=== PATIENT | female | born 1945 | race Caucasian/White ===

== ENCOUNTER → 2016-09-03 | Outpatient (CLI) | payer MEDICARE, OTHER ==
--- NOTE | 2016-09-03 11:46 | REPMRS ---
Patient History The patient states she has not had a clinical breast exam in over a year. Patient is postmenopausal. No known family history of cancer. Took hormonal contraceptives for 1 year 6 months. Took estrogen for 3 years. Digital Woman Screen Mammo: September 03, 2016 - Exam #: [id number] Bilateral CC and MLO view(s) were taken. Technologist: Joyce Boyce, Technologist Prior study comparison: May 08, 2015, digital woman screen mammo performed at [facility]. October 27, 2013, bilateral bilat screen digital mammo, performed at [facility] ([facility]). September 26, 2012, bilateral bilat screen digital mammo, performed at [facility] ([facility]). FINDINGS: There are scattered fibroglandular densities. There has been no change in the appearance of the mammogram from the prior studies. There is a mild amount of scattered fibroglandular density which is fairly symmetric. There is no interval development of dominant mass, architectural distortion, or clustered microcalcification suggestive of malignancy. ASSESSMENT: BI-RADS/ACR category 1 mammogram. Negative. Recommendation Routine screening mammogram in 1 year (for women over age 40). This mammogram was interpreted with the aid of an FDA-approved computer-aided dectection system. Electronically Signed By: Kalen Gomes MD 09/03/16 [id number]
== END ==
LOC: M WHC 10:28
PROVIDERS: ATTEND Family Medicine
DX: Z12.31 Encounter for screening mammogram for malignant neoplasm of breast (principal)

== ENCOUNTER → 2016-09-21 | Outpatient (REF) | payer MEDICARE, OTHER | LOC: M LAB REF 12:05 | PROVIDERS: ATTEND Family Medicine | DX: M10.9 Gout, unspecified (principal) ==

== ENCOUNTER → 2017-03-30 | Outpatient (REF) | payer MEDICARE, OTHER | LOC: M LAB REF 17:36 | PROVIDERS: ATTEND Family Medicine | DX: Z01.89 Encounter for other specified special examinations (principal) ==

== ENCOUNTER → 2017-09-13 | Outpatient (CLI) | payer MEDICARE, OTHER | LOC: M WHC 14:05 | DX: Z12.31 Encounter for screening mammogram for malignant neoplasm of breast (principal); M85.80 Other specified disorders of bone density and structure, unspecified site; Z78.0 Asymptomatic menopausal state; Z92.0 Personal history of contraception; Z92.23 Personal history of estrogen therapy | CPT/HCPCS: 77067 ==

== ENCOUNTER → 2018-04-04 | Outpatient (REF) | payer MEDICARE, OTHER ==
[2018-04-04 11:36] LABS: URIC ACID 4.6 MG/DL (2.6-6.0)
== END ==
LOC: M LAB REF 10:51
DX: M10.9 Gout, unspecified (principal)
CPT/HCPCS: 84550

== ENCOUNTER → 2018-07-04 | Outpatient (REF) | payer MEDICARE, OTHER ==
[2018-07-04 13:24] LABS: BLOOD UREA NITROGEN 19 MG/DL (7-18)
[2018-07-04 13:24] LABS: CREATININE FOR GFR 0.74 MG/DL (0.55-1.30); GLOMERULAR FILTRATION RATE > 60.0 (>39)
== END ==
LOC: M LAB REF 12:26
DX: N18.9 Chronic kidney disease, unspecified (principal)
CPT/HCPCS: 82565

== ENCOUNTER → 2018-11-02 | Outpatient (CLI) | payer MEDICARE, OTHER ==
--- NOTE | 2018-11-02 13:28 | REPMRS ---
Patient History The patient states she has not had a clinical breast exam in over a year. No known family history of cancer. Took hormonal contraceptives for 1 year 6 months. Took estrogen for 3 years. Digital Woman Screen Mammo: November 02, 2018 - Exam #: [id number] Bilateral CC and MLO view(s) were taken. Technologist: Dot Enriquez Technologist Prior study comparison: September 13, 2017, digital woman screen mammo performed at [facility]. September 03, 2016, digital woman screen mammo performed at [facility]. May 08, 2015, digital woman screen mammo performed at [facility]. FINDINGS: There are scattered fibroglandular densities. There has been no change in the appearance of the mammogram from the prior studies. There is a mild amount of scattered fibroglandular density which is fairly symmetric. There is no interval development of dominant mass, architectural distortion, or clustered microcalcification suggestive of malignancy. 3-D tomosynthesis shows no additional findings. Assessment: BI-RADS/ACR category 1 mammogram. Negative Mammogram. Recommendation Routine screening mammogram of both breasts in 1 year (for women over age 40). This patient's Lifetime Breast Cancer RIsk is estimated at 4.4 %. This mammogram was interpreted with the aid of an FDA-approved computer-aided dectection system. Electronically Signed By: Kalen Gomes MD 11/02/18 [id number]
== END ==
LOC: M WHC 09:36
PROVIDERS: ATTEND Family Medicine
DX: Z12.31 Encounter for screening mammogram for malignant neoplasm of breast (principal); Z92.0 Personal history of contraception; Z92.23 Personal history of estrogen therapy

== ENCOUNTER → 2019-03-01 | Outpatient (REF) | payer MEDICARE, OTHER | LOC: M LAB REF 12:48 | PROVIDERS: ATTEND Podiatrist Foot & Ankle Surgery | DX: L03.115 Cellulitis of right lower limb (principal); L89.891 Pressure ulcer of other site, stage 1 ==

== ENCOUNTER → 2019-04-06 | Outpatient (REF) | payer MEDICARE, OTHER ==
[~2019-04-06] MED LIST: CARB25TA9 PO; JANU100T PO; LEVAINH INH; LEVO75TA4 PO; LISI-538 PO; PRAM1TAB7 PO; PRIM250T8 PO; REFR0.5D8 OP; REST0.05 OU; SIMV40TA2 PO; SULF1TAB93 PO; ZYLO300T6 PO
== END ==
LOC: M LAB REF 17:08
PROVIDERS: ATTEND Podiatrist Foot & Ankle Surgery
DX: L03.115 Cellulitis of right lower limb (principal)

== ENCOUNTER → 2019-04-12 | Outpatient (REF) | payer MEDICARE, OTHER ==
[~2019-04-12] MED LIST changes: +HYDR-3713 PO; +ONDA4TAB5 PO
== END ==
LOC: M LAB REF 12:52
PROVIDERS: ATTEND Family Medicine
DX: M10.9 Gout, unspecified (principal)

== ENCOUNTER 2019-04-19 07:22 | Day surgery (SDC) | payer MEDICARE, OTHER ==
[~2019-04-19] VITALS: Ht 172.7 cm; Wt 109.8 kg
[~2019-04-19 07:22] MED LIST changes: -HYDR-3713 PO; -ONDA4TAB5 PO
[2019-04-19] MEDS ORDERED: LIDOCAINE 2% INJ 100 MG/5 ML SDV (FOR ANES.) As Ordered ONE (07:48)
[2019-04-19] MEDS ORDERED: PROPOFOL 500 MG/50 ML VIAL As Ordered ONE (07:48)
[2019-04-19] MEDS ORDERED: MIDAZOLAM INJ 2 MG/2 ML VIAL (J2250) As Ordered ONE (07:48)
[2019-04-19] MEDS ORDERED: fentaNYL 100 MCG/2 ML INJECTION (J3010) As Ordered ONE (07:48)
[2019-04-19] MEDS ORDERED: dexameTHASONE 4 MG/ML 1ML VIAL (J1100) As Ordered ONE ×2 (07:52→08:19)
[2019-04-19] MEDS ORDERED: KETOROLAC 60 MG/2 ML VIAL (J1885) As Ordered ONE (07:52)
[2019-04-19] MEDS ORDERED: ONDANSETRON 4MG/2ML VIAL (J2405) As Ordered ONE (07:52)
[2019-04-19] MEDS ORDERED: ceFAZolin 2 GM/D5W 50 ML IV BAG (J0690 PER 500MG) As Ordered ONE (07:59)
[2019-04-19] MEDS ORDERED: LIDOCAINE 1% MDV 20ML VIAL As Ordered ONE (08:19)
[2019-04-19] MEDS ORDERED: BUPIVACAINE HCL 0.5% 10 ML VIAL As Ordered ONE (08:19)
[2019-04-19] MEDS ORDERED: ONDA4TAB5 PO (09:23)
[2019-04-19] MEDS ORDERED: HYDR-3713 PO (09:23)
[2019-04-19 09:50] VITALS: BP 146/73
--- NOTE | 2019-04-20 06:44 | RO ---
DATE OF PROCEDURE: 04/19/2019 PREPROCEDURE DIAGNOSIS: Right foot metatarsal deformity with ulceration and possible osteomyelitis. POSTPROCEDURE DIAGNOSIS: Right foot metatarsal deformity with ulceration and possible osteomyelitis. PROCEDURE: Right second metatarsal head excision. SURGEON: Dr. Eliezer Restrepo JUNIOR PROJECT MANAGER: None. ANESTHESIA: Monitored anesthesia care with preoperative injection of 14 mL of 1:1 mixture of 1% lidocaine plain and 1/2% Marcaine plain. ESTIMATED BLOOD LOSS: Minimal. MATERIALS: #3-0 and #4-0 Vicryl and #4-0 nylon. INJECTABLES: None. SPECIMEN: Right second metatarsal head. COMPLICATIONS: None. CONDITION: Stable. 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 She has chronic dislocation, secondary long standing bunion and hammertoe deformities creating a pressure point under her second metatarsal head. Attempts of off loading this were unsuccessful in allowing further wound healing. The patient is unable to maintain non weight bearing status. She was brought to the operating room for excision of metatarsal head. The patient site and side were identified and marked in preoperative holding area. Consent was reviewed and obtained. All the risks, complications and alternatives to the procedure were explained to the patient in detail and all questions were answered. The patient was brought to the operating room and placed on the operating room in supine position. Monitored anesthesia care was delivered by the anesthesia team. Preoperative injection of 14 mL of 1:1 mixture of 1% lidocaine plain and 0.5% Marcaine plain were injected into the right foot. The right foot was prepped and draped in normal sterile fashion. A tourniquet was applied to the right ankle and inflated at 225 mmHg. Dorsal incision was drawn over the second metatarsal head and carried through with #15 blade. Dissection was carried until the metatarsal bone was identified. Bovie was used to maintain hemostasis. Dissection around the second metatarsal head was performed and freeing the soft tissue. Following this, sagittal saw was used to resect the metatarsal at the metatarsal neck. This was removed. The bone was noted to be irregular. This was then sent for pathology. The proximal phalanx bone was inspected and noted to be in good condition and no further signs of infection were noted more proximally. Some nonviable tissue was removed from the plantar surface of the wound. The site was irrigated. Deep closure performed with #3-0 Vicryl, subcutaneous closure with #4-0 Vicryl and skin closure with #4-0 nylon. Sterile dressings were applied. Tourniquet was deflated. The patient was brought to the postanesthesia care unit (PACU) with vital signs stable and neurovascular status intact. She will be partial weight bearing. She will follow up in the office in two days.
== END 2019-04-19 10:36 | disposition home or self-care (01) ==
LOC: M SDC 07:22 → EDSTATUS 15:00
PROVIDERS: ATTEND Podiatrist Foot & Ankle Surgery
DX: E11.621 Type 2 diabetes mellitus with foot ulcer (principal); I10 Essential (primary) hypertension; G20 Parkinson's disease; E03.9 Hypothyroidism, unspecified; E78.5 Hyperlipidemia, unspecified; G47.30 Sleep apnea, unspecified; Z79.899 Other long term (current) drug therapy
CPT/HCPCS: 28112; 88300; J0690; J1100; J1885; J2250; J2405; J3010

== ENCOUNTER → 2019-04-29 | Outpatient (REF) | payer MEDICARE, OTHER ==
[~2019-04-29] MED LIST changes: +HYDR-3713 PO; +ONDA-83 PO; -SIMV40TA2 PO; +SIMV40TA20 PO
== END ==
LOC: M LAB REF 08:42
PROVIDERS: ATTEND Physician Assistant Medical
DX: S91.301A Unspecified open wound, right foot, initial encounter (principal); Y92.9 Unspecified place or not applicable; Y93.9 Activity, unspecified

== ENCOUNTER 2019-05-31 07:33 | Emergency (ER) | payer MEDICARE, OTHER ==
[~2019-05-31] VITALS: Ht 172.7 cm; Wt 105.9 kg
[~2019-05-31 07:33] MED LIST changes: -ONDA-83 PO; +ONDA4TAB5 PO; +SIMV40TA2 PO; -SIMV40TA20 PO
[2019-05-31 08:24] LABS: BASO # 0.1 10^3/uL (0.0-0.2); BASO % 0.5 % (0.0-1.0); EOS # 0.1 10^3/uL (0.0-0.5); HEMATOCRIT 33.2 % (36.0-47.0); HEMOGLOBIN 10.7 g/dl (12.0-15.5); LYMPH # 1.6 10^3/uL (1.5-5.0); LYMPH % 14.7 % (24.0-44.0); MEAN CORPUSCULAR HEMOGLOBIN 26.2 pg (27.0-33.0); MEAN CORPUSCULAR HGB CONC 32.2 g/dl (32.0-36.5); MEAN CORPUSCULAR VOLUME 81.2 fl (80.0-96.0); MONO # 0.7 10^3/uL (0.0-0.8); MONO % 6.1 % (0.0-5.0); NEUTROPHILS # 8.4 10^3/uL (1.5-8.5); NEUTROPHILS % 76.7 % (36.0-66.0); PLATELET COUNT, AUTOMATED 320 10^3/uL (150-450); RED BLOOD COUNT 4.09 10^6/uL (4.00-5.40); WHITE BLOOD COUNT 10.9 10^3/uL (4.0-10.0)
[2019-05-31] MEDS ORDERED: NS 1,000 ML IV ONE ×2 (08:30→11:30)
[2019-05-31 08:48] LABS: ALBUMIN 3.4 GM/DL (3.2-5.2); ALT/SGPT < 6 U/L (12-78); BILIRUBIN,TOTAL 0.5 MG/DL (0.2-1.0); BLOOD UREA NITROGEN 14 MG/DL (7-18); CARBON DIOXIDE LEVEL 26 MEQ/L (21-32); CHLORIDE LEVEL 101 MEQ/L (98-107); CREATININE FOR GFR 0.88 MG/DL (0.55-1.30); GLOMERULAR FILTRATION RATE > 60.0 (>39); GLUCOSE, FASTING 103 MG/DL (70-100); POTASSIUM SERUM 3.9 MEQ/L (3.5-5.1); SODIUM LEVEL 137 MEQ/L (136-145); TOTAL PROTEIN 7.5 GM/DL (6.4-8.2)
--- NOTE | 2019-05-31 09:37 | REP ---
ABDOMEN SERIES: Four views. HISTORY: Constipation, nausea and vomiting. FINDINGS: Upright chest radiograph demonstrates linear opacity in the perihilar region on the right consistent with discoid atelectasis and/or fibrosis. Lungs are otherwise well inflated and clear. There is no evidence of infiltrate or free subdiaphragmatic air. Heart is not enlarged. Supine and erect views of the abdomen show a normal bowel gas pattern. There is no evidence of mass, organomegaly, or pathologic calcification. Some vascular calcification is noted. Mild degenerative changes are seen in the lumbar spine. IMPRESSION: Normal bowel gas pattern. Plate-like atelectasis versus linear fibrosis right perihilar region. Otherwise no acute finding. Electronically Signed by Gregorio Gomes MD 05/31/2019 01:43 P
[2019-05-31] MEDS ORDERED: ISOVUE-370 76% 100ML VIAL (Q9967) As Ordered ONE (09:43)
[2019-05-31 10:06] LABS: FREE T4 1.68 NG/DL (0.76-1.46); LIPASE 124 U/L (73-393); MAGNESIUM LEVEL 1.9 MG/DL (1.8-2.4); THYROID STIMULATING HORMONE 0.525 uIU/ML (0.358-3.740)
--- NOTE | 2019-05-31 11:08 | REP ---
CT abdomen and pelvis with IV but without oral contrast: History: No appetite. Weight loss. Chronic nausea and vomiting. No comparison CT study. Comparison radiographs are from earlier today. CT contrast dose: 100 mL of intravenous Isovue 370. CT findings: Digital preliminary scout executive radiograph is unremarkable. There are two small blebs in the right lower lobe of the lung. Lung bases are otherwise clear. Vascular calcification is noted in the distribution of the left coronary artery. The liver and the spleen are normal in size. No significant focal liver lesion is seen. There is a mucosal fold in the gallbladder. No other abnormality is seen in the gallbladder. No pancreatic lesion is observed. Normal adrenal glands are seen bilaterally. The kidneys are morphologically intact and enhance symmetrically. No hydronephrosis or calculus is seen. No retroperitoneal mass or adenopathy is observed. There is a periumbilical ventral hernia transmitting omental fat. The hernia defect measures 2.1 cm in transverse dimension. No other abdominal wall defect is seen. There is extensive left colonic diverticulosis affecting the sigmoid colon without CT evidence of diverticulitis. A normal appendix is visible. Urinary bladder is unremarkable. The uterus is surgically absent. Impression: Ventral hernia transmitting abdominal fat in the periumbilical region. Advanced diverticulosis in the sigmoid colon without CT evidence of diverticulitis. Status post hysterectomy. Otherwise negative. Electronically Signed by Gregorio Gomes MD 05/31/2019 01:46 P
[2019-05-31] MEDS ORDERED: E-Z-PAQUE 96% w/w SUSP 176GM BTL As Ordered ONE (13:52)
[2019-05-31] MEDS ORDERED: E-Z-GAS II EFFERVESCENT PACKET (SODIUM BICARB./CITRIC ACID/SIMETHICONE) As Ordered ONE (13:52)
[2019-05-31] MEDS ORDERED: E-Z-HD 98% w/w 340GM SUSP BTL As Ordered ONE (13:52)
--- NOTE | 2019-05-31 15:10 | ECGEPIP ---
[facility] - ED Test Date: 2019-05-31 Pat Name: MANI ASKEW Department: Room: - Gender: Female Nursing Home Physician: : [id number] Requested By: Phani Delatorre Order Number: [id number] Reading MD: Stephanie Fuentes Measurements Intervals [place] Rate: 72 P: 60 DE: 156 QRS: -11 QRSD: 88 T: 21 QT: 368 QTc: 403 Interpretive Statements SINUS RHYTHM NSTTW abnormalities NO PRIOR Electronically Signed on 05-31-2019 15:10:09 EDT by Stephanie Fuentes
[2019-05-31 15:42] VITALS: BP 166/82
--- NOTE | 2019-05-31 17:48 | REP ---
Examination Requested: Esophagram Barium Swallow Reason For Exam/Comment: Difficulty swallowing, severe weight loss Esophagram: The procedure was performed SHAHID Trevino, under the direct supervision of Dr. Gomes. The images were reviewed with Dr. Gomes. A single PA chest x-ray is submitted as a keypunch operator film. The superior mediastinal structures are midline. The heart size is within normal limits. The lungs are clear. Due to the patient's decreased mobility thin liquid barium was given in the prone oblique position, in order to perform a esophagram examination. Oral and pharyngeal stages of the examination were unremarkable. Esophageal transport is efficient and there is no esophagitis, stricture, or mucosal ring noted. However to-and-fro motion was observed in the esophagus as well as tertiary contractions. There is a small hiatal hernia noted. Gastroesophageal reflux was not visualized. Impression: 1. Presbyesophagus. 2. Small hiatal hernia. 0.3 minutes of fluoroscopy time was utilized for this procedure. Some fluoroscopic images are performed with last image hold technology. These images require no additional radiation. Reviewed by SHAHID Nam 05/31/2019 03:38 P Electronically Signed by Gregorio Gomes MD 05/31/2019 05:39 P
--- NOTE | 2019-06-01 06:16 | ED PDOC ---
Post-Departure Follow-Up dr moreno faxed formal report of barium swallow for fu vedag Kali De Anda MD Jun 01, 2019 06:16
== END 2019-05-31 15:57 | disposition home or self-care (01) ==
LOC: M ED 07:33
DX: R53.1 Weakness (principal); R42 Dizziness and giddiness; D64.9 Anemia, unspecified; R11.2 Nausea with vomiting, unspecified; E11.9 Type 2 diabetes mellitus without complications; I10 Essential (primary) hypertension; N18.3 Chronic kidney disease, stage 3 (moderate); E78.5 Hyperlipidemia, unspecified; E03.8 Other specified hypothyroidism; E11.40 Type 2 diabetes mellitus with diabetic neuropathy, unspecified; M10.9 Gout, unspecified; G20 Parkinson's disease; K57.32 Diverticulitis of large intestine without perforation or abscess without bleeding; Z87.440 Personal history of urinary (tract) infections; K44.9 Diaphragmatic hernia without obstruction or gangrene; K22.8 Other specified diseases of esophagus; Z79.899 Other long term (current) drug therapy; Z88.8 Allergy status to other drugs, medicaments and biological substances
CPT/HCPCS: 36415; 74021; 74177; 74220; 80053; 81001; 83690; 83735; 84439; 84443; 85025; 87086; 93005; 93041; 94760; 96360; 96361; 99285; Q9967

== ENCOUNTER → 2019-06-01 | Outpatient (REF) | payer MEDICARE, OTHER ==
[2019-06-01 18:07] LABS: PERCENT SATURATION 84.5 % (13.2-45.0)
[2019-06-01 18:14] LABS: FOLATE 4.1 NG/ML
[2019-06-03 14:22] LABS: Lyme Disease IgG/IgM Antibodie <0.91 ISR (0.00-0.90); Lyme Disease IgM Ab Quantitati <0.80 index (0.00-0.79)
== END ==
LOC: M LAB REF 17:02
PROVIDERS: ATTEND Registered Nurse
DX: D64.9 Anemia, unspecified (principal); G60.9 Hereditary and idiopathic neuropathy, unspecified

== ENCOUNTER → 2020-01-17 | Outpatient (REF) | payer MEDICARE, OTHER ==
[~2020-01-17] MED LIST changes: +ONDA-83 PO; -ONDA4TAB5 PO; -SIMV40TA2 PO; +SIMV40TA20 PO
[2020-01-17 13:31] LABS: FERRITIN 120 NG/ML (8-252); IRON (FE) 65 UG/DL (50-170); PERCENT SATURATION 23.2 % (13.2-45.0); TOTAL IRON BINDING CAPACITY 280 UG/DL (250-450)
[2020-01-17 13:37] LABS: FOLATE > 24.0 NG/ML; VITAMIN B12 LEVEL 1074 PG/ML
== END ==
LOC: M LAB REF 12:05
PROVIDERS: ATTEND Family Medicine
DX: R11.2 Nausea with vomiting, unspecified (principal); D50.9 Iron deficiency anemia, unspecified

== ENCOUNTER → 2020-01-25 | Outpatient (REF) | payer MEDICARE, OTHER | LOC: M LAB REF 17:34 | PROVIDERS: ATTEND Dermatology | DX: D23.5 Other benign neoplasm of skin of trunk (principal) | CPT/HCPCS: 11102; 88305; 88342; G0463 ==

== ENCOUNTER → 2020-02-05 | Outpatient (CLI) | payer MEDICARE, OTHER ==
--- NOTE | 2020-02-06 10:04 | REPMRS ---
Patient History The patient states she has not had a clinical breast exam in over a year. Patient is postmenopausal. Family history of breast cancer in niece. Took hormonal contraceptives for 1 year 6 months. Took estrogen for 3 years. 3D TOMOSYNTHESIS WAS PERFORMED. The [employer] lifetime risk for breast cancer is 4.1%. VOLPARA DENSITY B. Digital Woman Screen Mammo: February 05, 2020 - Exam #: [id number] Bilateral CC and MLO view(s) were taken. Technologist: Lucy Pinto, Technologist Prior study comparison: November 02, 2018, bilateral digital woman screen mammo performed at [facility]. September 13, 2017, digital woman screen mammo performed at [facility]. FINDINGS: There are scattered fibroglandular densities. There has been no change in the appearance of the mammogram from the prior studies. There is a mild amount of residual fibroglandular tissue which is fairly symmetric. There is no interval development of dominant mass, architectural distortion, or clustered microcalcification suggestive of malignancy. Assessment: BI-RADS/ACR category 1 mammogram. Negative Mammogram. Recommendation Routine screening mammogram in 1 year (for women over age 40). This mammogram was interpreted with the aid of an FDA-approved computer-aided dectection system. Electronically Signed By: Kurt Lyman MD 02/06/20 3653
== END ==
LOC: M WHC 10:01
PROVIDERS: ATTEND Family Medicine
DX: Z12.31 Encounter for screening mammogram for malignant neoplasm of breast (principal); Z80.3 Family history of malignant neoplasm of breast

== ENCOUNTER → 2020-04-10 | Outpatient (CLI) | payer MEDICARE, OTHER ==
[~2020-04-10] MED LIST changes: +B-122500 PO; +COLA100C5 PO; +COQ-100C5 PO; +D31000TA2 PO; +LOSA25TA14 PO; +MIRA3350 PO; +MULT-90 PO; +PANT40TA29 PO; +SENO8.6T5 PO
== END ==
LOC: M LABSMTC 10:19
PROVIDERS: ATTEND Anesthesiology
DX: Z03.818 Encounter for observation for suspected exposure to other biological agents ruled out (principal); Z11.59 Encounter for screening for other viral diseases
CPT/HCPCS: C9803; U0003

== ENCOUNTER 2020-04-15 08:11 | Day surgery (SDC) | payer MEDICARE, OTHER ==
[~2020-04-15] VITALS: Ht 172.7 cm; Wt 117.9 kg
[~2020-04-15 08:11] MED LIST changes: +SUCCINYLCHOLINE 100 MG/5 ML SYRINGE (J0330) As Ordered ONE; +propofoL 200 MG/20 ML VIAL As Ordered ONE
[2020-04-15 09:45] VITALS: BP 177/88
[2020-04-15] MEDS ORDERED: NS 1,000 ML IV ONE (10:15)
--- NOTE | 2020-04-24 11:30 | ROOR ---
Patient Name: Jayson Ho Procedure Date: 04/15/2020 8:51 AM Date of : 1945 Age: 75 Room: [facility] Gender: Female Note Status: Finalized Procedure: Colonoscopy Indications: Screening for colorectal malignant neoplasm Providers: Daniel Gonzalez MD Referring MD: Dago Herrera MD Requesting Provider: Medicines: Monitored Anesthesia Care Complications: No immediate complications. Procedure: Pre-Anesthesia Assessment: - Prior to the procedure, a History and Physical was performed, and patient medications and allergies were reviewed. The patient is competent. The risks and benefits of the procedure and the sedation options and risks were discussed with the patient. All questions were answered and informed consent was obtained. Patient identification and proposed procedure were verified by the physician, the nurse and the anesthesiologist in the procedure room. Mental Status Examination: normal. Airway Examination: normal oropharyngeal airway and neck mobility. Respiratory Examination: clear to auscultation. CV Examination: normal. Prophylactic Antibiotics: The patient does not require prophylactic antibiotics. Prior Anticoagulants: The patient has taken no previous anticoagulant or antiplatelet agents. ASA Grade Assessment: II - A patient with mild systemic disease. After reviewing the risks and benefits, the patient was deemed in satisfactory condition to undergo the procedure. The anesthesia plan was to use monitored anesthesia care (MAC). Immediately prior to administration of medications, the patient was re-assessed for adequacy to receive sedatives. The heart rate, respiratory rate, oxygen saturations, blood pressure, adequacy of pulmonary ventilation, and response to care were monitored throughout the procedure. The physical status of the patient was re-assessed after the procedure. The Colonoscope was introduced through the anus and advanced to the terminal ileum, with identification of the appendiceal orifice and IC valve. The colonoscopy was performed without difficulty. The patient tolerated the procedure well. The quality of the bowel preparation was good. The terminal ileum, ileocecal valve, appendiceal orifice, and rectum were photographed. Findings: The perianal and digital rectal examinations were normal. The terminal ileum appeared normal. Two sessile polyps were found in the ascending colon and cecum. The polyps were 4 to 8 mm in size. These polyps were removed with a jumbo cold forceps. Resection and retrieval were complete. Verification of patient identification for the specimen was done by the physician and nurse using the patient's name, date and medical record number. Estimated blood loss was minimal. Multiple small and large-mouthed diverticula were found from sigmoid to ascending colon. There was no evidence of diverticular bleeding. Non-bleeding external and internal hemorrhoids were found during retroflexion. The hemorrhoids were medium-sized. Impression: - The examined portion of the ileum was normal. - Two 4 to 8 mm polyps in the ascending colon and in the cecum, removed with a jumbo cold forceps. Resected and retrieved. - Moderate diverticulosis from sigmoid to ascending colon. There was no evidence of diverticular bleeding. - Non-bleeding external and internal hemorrhoids. Recommendation: - Patient has a contact number available for emergencies. The signs and symptoms of potential delayed complications were discussed with the patient. Return to normal activities tomorrow. Written discharge instructions were provided to the patient. - High fiber diet. - Continue present medications. - Use fiber, for example Citrucel, Fibercon, Konsyl or Metamucil. - Await pathology results. - Repeat colonoscopy in 5-10 years for surveillance based on pathology results. - Telephone GI clinic for pathology results in 2 weeks. - Check comple blooc counts with iron studies ( to follow up on anemia) in 3 months. - Return to primary care physician. Daniel Gonzalez MD Daniel Gonzalez MD 04/15/2020 9:31:10 AM Number of Addenda: 0 Note Initiated On: 04/15/2020 8:51 AM Estimated Blood Loss: Estimated blood loss was minimal.
== END 2020-04-15 10:03 | disposition home or self-care (01) ==
LOC: M OPP 08:11
PROVIDERS: ATTEND Internal Medicine Gastroenterology
DX: Z12.11 Encounter for screening for malignant neoplasm of colon (principal); K64.8 Other hemorrhoids; K63.5 Polyp of colon; K57.30 Diverticulosis of large intestine without perforation or abscess without bleeding; G47.30 Sleep apnea, unspecified; I10 Essential (primary) hypertension; E78.5 Hyperlipidemia, unspecified; E03.9 Hypothyroidism, unspecified; G20 Parkinson's disease; Z79.84 Long term (current) use of oral hypoglycemic drugs; Z79.899 Other long term (current) drug therapy; Z88.8 Allergy status to other drugs, medicaments and biological substances
CPT/HCPCS: 45380; 88305; J0330

== ENCOUNTER → 2021-03-27 | Outpatient (CLI) | payer MEDICARE, OTHER ==
[~2021-03-27] MED LIST changes: +BACTDSTA PO; -LISI-538 PO; +LISI20TA33 PO; -SUCCINYLCHOLINE 100 MG/5 ML SYRINGE (J0330) As Ordered ONE; -SULF1TAB93 PO; -propofoL 200 MG/20 ML VIAL As Ordered ONE
--- NOTE | 2021-03-27 16:13 | REPMRS ---
Patient History The patient states she has not had a clinical breast exam in over a year. Family history of breast cancer in niece. Took hormonal contraceptives for 1 year 6 months. Took estrogen for 3 years. Patient states no breast complaints today. Patient has signed MRS History Sheet. Digital Woman Screen Mammo: March 27, 2021 - Exam #: [id number] Bilateral CC and MLO view(s) were taken. Technologist: Na Mccall, Technologist Prior study comparison: February 05, 2020, bilateral digital woman screen mammo performed at [facility]. November 02, 2018, bilateral digital woman screen mammo performed at [facility]. September 13, 2017, digital woman screen mammo performed at [facility]. FINDINGS: The breast tissue is heterogeneously dense. This may lower the sensitivity of mammography. The Volpara volumetric breast density category is: C. There is a moderate amount of heterogeneously dense fibroglandular tissue which is fairly symmetric. There is no interval development of dominant mass, architectural distortion, or grouped microcalcification typical of malignancy. There has been no change in the appearance of the mammogram from the prior studies. 3-D tomosynthesis shows no additional findings. Assessment: BI-RADS/ACR category 1 mammogram. Negative Mammogram. Recommendation Routine screening mammogram of both breasts in 1 year (for women over age 40). This patient's [facility] Lifetime Breast Cancer RIsk is estimated at 3.5 %. This mammogram was interpreted with the aid of an FDA-approved computer-aided dectection system. Electronically Signed By: Kalen Gomes MD 03/27/21 [id number]
== END ==
LOC: M WHC 14:19
PROVIDERS: ATTEND Family Medicine
DX: Z12.31 Encounter for screening mammogram for malignant neoplasm of breast (principal)

== ENCOUNTER 2021-09-25 13:24 | Inpatient (IN) | payer MEDICARE, OTHER ==
[~2021-09-25] VITALS: Ht 167.6 cm; Wt 118.2 kg
[~2021-09-25 13:24] MED LIST changes: +LOSA25TA13 PO; -LOSA25TA14 PO
[2021-09-25] MEDS ORDERED: ACETAMINOPHEN 325 MG TAB PO ONE (14:35)
[2021-09-25] MEDS ORDERED: SINEMET 25-100 MG TAB PO STA (14:49)
[2021-09-25 15:13] LABS: BASO # 0.1 10^3/uL (0.0-0.2); BASO % 0.3 % (0.0-1.0); HEMOGLOBIN 13.2 g/dl (12.0-15.5); LYMPH # 0.8 10^3/uL (1.5-5.0); LYMPH % 3.4 % (24.0-44.0); MEAN CORPUSCULAR HEMOGLOBIN 29.1 pg (27.0-33.0); MEAN CORPUSCULAR HGB CONC 32.2 g/dl (32.0-36.5); MEAN CORPUSCULAR VOLUME 90.3 fl (80.0-96.0); MONO # 1.1 10^3/uL (0.0-0.8); MONO % 4.5 % (2.0-8.0); NEUTROPHILS # 21.4 10^3/uL (1.5-8.5); PLATELET COUNT, AUTOMATED 238 10^3/uL (150-450); RED BLOOD COUNT 4.54 10^6/uL (4.00-5.40); WHITE BLOOD COUNT 23.5 10^3/uL (4.0-10.0)
[2021-09-25 15:54] LABS: ALBUMIN 3.1 GM/DL (3.2-5.2); ALT/SGPT 27 U/L (12-78); BILIRUBIN,DIRECT 0.2 MG/DL (0.0-0.2); BILIRUBIN,TOTAL 0.6 MG/DL (0.2-1.0); BLOOD UREA NITROGEN 21 MG/DL (7-18); CALCIUM LEVEL 9.1 MG/DL (8.8-10.2); CARBON DIOXIDE LEVEL 25 MEQ/L (21-32); CHLORIDE LEVEL 103 MEQ/L (98-107); CREATININE FOR GFR 0.91 MG/DL (0.55-1.30); GLOMERULAR FILTRATION RATE > 60.0 (>39); GLUCOSE, FASTING 108 MG/DL (70-100); POTASSIUM SERUM 3.6 MEQ/L (3.5-5.1); SODIUM LEVEL 136 MEQ/L (136-145); TOTAL PROTEIN 7.4 GM/DL (6.4-8.2)
[2021-09-25 17:41] LABS: RSV AMPLIFICATION NEGATIVE (NEGATIVE)
[2021-09-25] MEDS ORDERED: cefTRIAXone SOD 1 GM in D5W MINI-BAG PLUS 50 ML IV ONE (17:50)
[2021-09-25] MEDS ORDERED: MOM 30ML SUSPENSION UDC PO PRN (18:30)
[2021-09-25] MEDS ORDERED: GLUCAGON INJ 1MG VIAL SC PRN (18:30)
[2021-09-25] MEDS ORDERED: DEXTROSE 50% 50 ML SYRINGE IV PRN (18:30)
[2021-09-25] MEDS: NS 1,000 ML IV SCH (18:30)
[2021-09-25] MEDS ORDERED: NS 1,000 ML IV ONE (18:30)
[2021-09-25] MEDS ORDERED: GLUCOSE 4GM CHEW TABLET PO PRN (18:30)
[2021-09-25] MEDS ORDERED: MAALOX 30 ML SUSP *UDC PO PRN (18:30)
[2021-09-25] MEDS ORDERED: VITA100018 PO (18:40)
[2021-09-25] MEDS ORDERED: SYNT88TA2 PO (18:40)
[2021-09-25] MEDS ORDERED: ALLO300T2 PO (18:40)
[2021-09-25] MEDS ORDERED: HOME MED LIST COMPLETE! XX SCH (18:45)
[2021-09-25] MEDS ORDERED: LEVALBUTEROL HFA 45MCG/ACT 15 GM INHALER INH PRN (19:00)
[2021-09-25 20:00] LABS: INR 1.15; PROTHROMBIN TIME 15.1 SECONDS (12.7-14.5)
[2021-09-25 20:01] LABS: PARTIAL THROMBOPLASTIN TIME 29.8 SECONDS (25.9-37.0)
[2021-09-25] MEDS: HumaLOG INSULIN (NovoLOG) PER UNIT SC SCH (21:00)
[2021-09-25] MEDS: DOCUSATE SODIUM 100MG CAPSULE PO SCH (21:00)
[2021-09-25] MEDS: IPRATROPIUM 0.5MG/ALBUTEROL 2.5MG INH SOL UD 3ML (DUONEB) NEB SCH (21:08)
[2021-09-25] MEDS: SIMVASTATIN 40 MG TAB PO SCH (23:24)
[2021-09-26] MEDS: IPRATROPIUM 0.5MG/ALBUTEROL 2.5MG INH SOL UD 3ML (DUONEB) NEB SCH ×4 (01:42→19:34)
[2021-09-26 02:25] VITALS: BP 137/76
[2021-09-26] MEDS: PRAMIPEXOLE 1 MG TAB PO SCH ×4 (02:29→20:29)
[2021-09-26] MEDS: SINEMET 25-100 MG TAB PO SCH ×5 (02:29→20:29)
[2021-09-26] MEDS: NS 1,000 ML IV SCH (02:30)
[2021-09-26 05:30] VITALS: BP 139/77
[2021-09-26] MEDS: LEVOTHYROXINE 75MCG TABLET (0.075MG) PO SCH (05:35)
[2021-09-26 07:42] LABS: BASO # 0.1 10^3/uL (0.0-0.2); BASO % 0.8 % (0.0-1.0); EOS # 0.1 10^3/uL (0.0-0.5); EOS % 0.6 % (0.0-3.0); HEMATOCRIT 38.7 % (36.0-47.0); HEMOGLOBIN 12.4 g/dl (12.0-15.5); LYMPH # 1.3 10^3/uL (1.5-5.0); LYMPH % 8.3 % (24.0-44.0); MEAN CORPUSCULAR HEMOGLOBIN 29.2 pg (27.0-33.0); MEAN CORPUSCULAR VOLUME 91.1 fl (80.0-96.0); MONO # 1.1 10^3/uL (0.0-0.8); MONO % 7.3 % (2.0-8.0); NEUTROPHILS # 12.9 10^3/uL (1.5-8.5); NEUTROPHILS % 82.4 % (36.0-66.0); PLATELET COUNT, AUTOMATED 201 10^3/uL (150-450); RED BLOOD COUNT 4.25 10^6/uL (4.00-5.40); WHITE BLOOD COUNT 15.7 10^3/uL (4.0-10.0)
[2021-09-26 08:06] LABS: BLOOD UREA NITROGEN 15 MG/DL (7-18); CALCIUM LEVEL 8.4 MG/DL (8.8-10.2); CARBON DIOXIDE LEVEL 26 MEQ/L (21-32); CHLORIDE LEVEL 109 MEQ/L (98-107); CREATININE FOR GFR 0.81 MG/DL (0.55-1.30); GLOMERULAR FILTRATION RATE > 60.0 (>39); GLUCOSE, FASTING 121 MG/DL (70-100); POTASSIUM SERUM 3.7 MEQ/L (3.5-5.1); SODIUM LEVEL 138 MEQ/L (136-145)
[2021-09-26] MEDS: MIRALAX *UNIT DOSE* 17GM PACKET PO SCH (08:18)
[2021-09-26] MEDS: LOSARTAN 25 MG TAB PO SCH (08:18)
[2021-09-26] MEDS: DOCUSATE SODIUM 100MG CAPSULE PO SCH ×2 (08:18→20:29)
[2021-09-26] MEDS: PANTOPRAZOLE 40MG TAB (PROTONIX) PO SCH (08:18)
[2021-09-26] MEDS: HumaLOG INSULIN (NovoLOG) PER UNIT SC SCH ×4 (08:18→20:30)
[2021-09-26] MEDS: allopurinoL 300 MG TAB PO SCH (08:19)
[2021-09-26] MEDS: ENOXAPARIN 40MG/0.4ML SYRINGE (J1650 PER 10MG) SC SCH (08:19)
[2021-09-26 14:00] VITALS: BP 161/93
[2021-09-26] MEDS ORDERED: cefTRIAXone SOD 1 GM in D5W MINI-BAG PLUS 50 ML IV SCH (18:00)
[2021-09-26] MEDS: SIMVASTATIN 40 MG TAB PO SCH (20:29)
[2021-09-26 20:43] VITALS: BP 147/75
[2021-09-27] MEDS: IPRATROPIUM 0.5MG/ALBUTEROL 2.5MG INH SOL UD 3ML (DUONEB) NEB SCH (01:21)
[2021-09-27 05:34] VITALS: BP 167/84
[2021-09-27] MEDS: LEVOTHYROXINE 88MCG TABLET (0.088 MG) PO SCH (05:37)
[2021-09-27 07:09] LABS: BLOOD UREA NITROGEN 13 MG/DL (7-18); CALCIUM LEVEL 8.4 MG/DL (8.8-10.2); CARBON DIOXIDE LEVEL 24 MEQ/L (21-32); CHLORIDE LEVEL 108 MEQ/L (98-107); CREATININE FOR GFR 0.78 MG/DL (0.55-1.30); GLOMERULAR FILTRATION RATE > 60.0 (>39); GLUCOSE, FASTING 140 MG/DL (70-100); POTASSIUM SERUM 3.7 MEQ/L (3.5-5.1); SODIUM LEVEL 139 MEQ/L (136-145)
[2021-09-27 07:29] LABS: BASO # 0.1 10^3/uL (0.0-0.2); BASO % 0.7 % (0.0-1.0); EOS # 0.2 10^3/uL (0.0-0.5); EOS % 1.5 % (0.0-3.0); HEMATOCRIT 38.8 % (36.0-47.0); HEMOGLOBIN 12.3 g/dl (12.0-15.5); LYMPH # 1.4 10^3/uL (1.5-5.0); LYMPH % 11.2 % (24.0-44.0); MEAN CORPUSCULAR HEMOGLOBIN 28.9 pg (27.0-33.0); MEAN CORPUSCULAR HGB CONC 31.7 g/dl (32.0-36.5); MEAN CORPUSCULAR VOLUME 91.1 fl (80.0-96.0); MONO % 7.7 % (2.0-8.0); NEUTROPHILS % 78.5 % (36.0-66.0); PLATELET COUNT, AUTOMATED 204 10^3/uL (150-450); RED BLOOD COUNT 4.26 10^6/uL (4.00-5.40); WHITE BLOOD COUNT 12.7 10^3/uL (4.0-10.0)
[2021-09-27] MEDS ORDERED: LEVALBUTEROL 1.25 MG/0.5 ML CONCENTRATE NEB INH PRN (07:45)
[2021-09-27] MEDS ORDERED: FUROSEMIDE 40MG/4ML VIAL (J1940) IV ONE (07:50)
[2021-09-27] MEDS: LEVALBUTEROL 1.25 MG/0.5 ML CONCENTRATE NEB INH SCH ×5 (08:09→23:31)
[2021-09-27] MEDS: MIRALAX *UNIT DOSE* 17GM PACKET PO SCH (08:36)
[2021-09-27] MEDS: HumaLOG INSULIN (NovoLOG) PER UNIT SC SCH ×4 (08:37→21:00)
[2021-09-27] MEDS: ENOXAPARIN 40MG/0.4ML SYRINGE (J1650 PER 10MG) SC SCH (08:40)
[2021-09-27] MEDS: DOCUSATE SODIUM 100MG CAPSULE PO SCH ×2 (08:40→21:00)
[2021-09-27] MEDS: PRAMIPEXOLE 1 MG TAB PO SCH ×3 (08:40→21:49)
[2021-09-27] MEDS: SINEMET 25-100 MG TAB PO SCH ×4 (08:41→21:49)
[2021-09-27] MEDS: allopurinoL 300 MG TAB PO SCH (08:41)
[2021-09-27] MEDS: PANTOPRAZOLE 40MG TAB (PROTONIX) PO SCH (08:41)
[2021-09-27] MEDS: LOSARTAN 25 MG TAB PO SCH (08:41)
[2021-09-27] MEDS ORDERED: FLUBLOK(EGG FREE)(QUAD)INFLUENZA VACC 0.5ML SYRINGE 18YRS & OLDER IM ONE (09:00)
[2021-09-27] MEDS ORDERED: FUROSEMIDE 40 MG TAB PO ONE (10:20)
[2021-09-27] MEDS: CEFDINIR 300 MG CAP (OMNICEF) PO SCH ×2 (10:52→21:49)
[2021-09-27] MEDS: LACTOBACILLUS ACIDOPHILUS CAP (BACID) PO SCH ×2 (10:52→17:41)
[2021-09-27] MEDS ORDERED: LOSARTAN 25 MG TAB PO ONE (12:30)
[2021-09-27 14:00] VITALS: BP 180/112
[2021-09-27] MEDS ORDERED: CARVedilol 6.25 MG TAB PO ONE (17:15)
[2021-09-27] MEDS: ACETAMINOPHEN TAB 650MG DOSE (2X325MG) PO PRN ×2 (17:41→21:50)
[2021-09-27 20:00] VITALS: BP 160/90
[2021-09-27 21:41] VITALS: BP 158/88
[2021-09-27] MEDS: SIMVASTATIN 40 MG TAB PO SCH (21:49)
[2021-09-28] MEDS: LEVALBUTEROL 1.25 MG/0.5 ML CONCENTRATE NEB INH SCH ×4 (03:19→20:16)
[2021-09-28] MEDS: LEVOTHYROXINE 75MCG TABLET (0.075MG) PO SCH (05:14)
[2021-09-28 06:00] VITALS: BP 167/90
[2021-09-28 06:28] LABS: BASO # 0.1 10^3/uL (0.0-0.2); BASO % 0.6 % (0.0-1.0); EOS # 0.4 10^3/uL (0.0-0.5); EOS % 2.8 % (0.0-3.0); HEMOGLOBIN 12.7 g/dl (12.0-15.5); LYMPH # 2.1 10^3/uL (1.5-5.0); LYMPH % 16.3 % (24.0-44.0); MEAN CORPUSCULAR HEMOGLOBIN 28.8 pg (27.0-33.0); MEAN CORPUSCULAR HGB CONC 31.8 g/dl (32.0-36.5); MEAN CORPUSCULAR VOLUME 90.7 fl (80.0-96.0); MONO % 7.9 % (2.0-8.0); NEUTROPHILS # 9.2 10^3/uL (1.5-8.5); NEUTROPHILS % 71.9 % (36.0-66.0); PLATELET COUNT, AUTOMATED 239 10^3/uL (150-450); RED BLOOD COUNT 4.41 10^6/uL (4.00-5.40); WHITE BLOOD COUNT 12.7 10^3/uL (4.0-10.0)
[2021-09-28 06:47] LABS: BLOOD UREA NITROGEN 12 MG/DL (7-18); CALCIUM LEVEL 8.7 MG/DL (8.8-10.2); CARBON DIOXIDE LEVEL 26 MEQ/L (21-32); CHLORIDE LEVEL 106 MEQ/L (98-107); CREATININE FOR GFR 0.74 MG/DL (0.55-1.30); GLOMERULAR FILTRATION RATE > 60.0 (>39); GLUCOSE, FASTING 129 MG/DL (70-100); POTASSIUM SERUM 3.5 MEQ/L (3.5-5.1); SODIUM LEVEL 140 MEQ/L (136-145)
[2021-09-28] MEDS ORDERED: FUROSEMIDE 40 MG TAB PO ONE (07:30)
[2021-09-28] MEDS ORDERED: POTASSIUM CHLORIDE 10MEQ SR TABLET PO ONE (07:30)
[2021-09-28] MEDS: LACTOBACILLUS ACIDOPHILUS CAP (BACID) PO SCH ×2 (09:30→16:50)
[2021-09-28] MEDS: HumaLOG INSULIN (NovoLOG) PER UNIT SC SCH ×4 (09:30→21:00)
[2021-09-28] MEDS: DOCUSATE SODIUM 100MG CAPSULE PO SCH ×2 (09:41→21:43)
[2021-09-28] MEDS: allopurinoL 300 MG TAB PO SCH (09:43)
[2021-09-28] MEDS: SINEMET 25-100 MG TAB PO SCH ×4 (09:43→21:43)
[2021-09-28] MEDS: CARVedilol 6.25 MG TAB PO SCH ×2 (09:43→21:42)
[2021-09-28] MEDS: PRAMIPEXOLE 1 MG TAB PO SCH ×3 (09:44→21:41)
[2021-09-28] MEDS: PANTOPRAZOLE 40MG TAB (PROTONIX) PO SCH (09:44)
[2021-09-28] MEDS: CEFDINIR 300 MG CAP (OMNICEF) PO SCH ×2 (09:44→21:43)
[2021-09-28] MEDS: LOSARTAN 50MG TABLET PO SCH (09:44)
[2021-09-28] MEDS: MIRALAX *UNIT DOSE* 17GM PACKET PO SCH (09:44)
[2021-09-28] MEDS: ENOXAPARIN 40MG/0.4ML SYRINGE (J1650 PER 10MG) SC SCH (09:44)
[2021-09-28 10:46] VITALS: BP 152/93
[2021-09-28 14:00] VITALS: BP 125/69
[2021-09-28] MEDS: ACETAMINOPHEN TAB 650MG DOSE (2X325MG) PO PRN (21:42)
[2021-09-28] MEDS: SIMVASTATIN 40 MG TAB PO SCH (21:43)
[2021-09-29] MEDS: LEVOTHYROXINE 88MCG TABLET (0.088 MG) PO SCH (05:50)
[2021-09-29 06:00] VITALS: BP 146/85
[2021-09-29 07:22] LABS: BASO # 0.1 10^3/uL (0.0-0.2); BASO % 1.1 % (0.0-1.0); EOS # 0.6 10^3/uL (0.0-0.5); EOS % 4.9 % (0.0-3.0); HEMATOCRIT 41.4 % (36.0-47.0); LYMPH # 2.8 10^3/uL (1.5-5.0); MEAN CORPUSCULAR HEMOGLOBIN 28.4 pg (27.0-33.0); MEAN CORPUSCULAR HGB CONC 31.4 g/dl (32.0-36.5); MEAN CORPUSCULAR VOLUME 90.4 fl (80.0-96.0); MONO # 0.9 10^3/uL (0.0-0.8); MONO % 7.5 % (2.0-8.0); NEUTROPHILS # 7.7 10^3/uL (1.5-8.5); NEUTROPHILS % 62.4 % (36.0-66.0); PLATELET COUNT, AUTOMATED 273 10^3/uL (150-450); RED BLOOD COUNT 4.58 10^6/uL (4.00-5.40); WHITE BLOOD COUNT 12.3 10^3/uL (4.0-10.0)
[2021-09-29] MEDS: HumaLOG INSULIN (NovoLOG) PER UNIT SC SCH ×4 (07:30→21:00)
[2021-09-29] MEDS: LEVALBUTEROL 1.25 MG/0.5 ML CONCENTRATE NEB INH SCH ×3 (07:45→20:00)
[2021-09-29 07:52] LABS: BLOOD UREA NITROGEN 16 MG/DL (7-18); CALCIUM LEVEL 8.9 MG/DL (8.8-10.2); CARBON DIOXIDE LEVEL 27 MEQ/L (21-32); CHLORIDE LEVEL 103 MEQ/L (98-107); CREATININE FOR GFR 0.76 MG/DL (0.55-1.30); GLOMERULAR FILTRATION RATE > 60.0 (>39); GLUCOSE, FASTING 127 MG/DL (70-100); POTASSIUM SERUM 3.8 MEQ/L (3.5-5.1); SODIUM LEVEL 137 MEQ/L (136-145)
[2021-09-29] MEDS: MIRALAX *UNIT DOSE* 17GM PACKET PO SCH (08:49)
[2021-09-29] MEDS: LACTOBACILLUS ACIDOPHILUS CAP (BACID) PO SCH ×2 (08:49→16:05)
[2021-09-29] MEDS: CARVedilol 6.25 MG TAB PO SCH ×2 (08:49→22:22)
[2021-09-29] MEDS: DOCUSATE SODIUM 100MG CAPSULE PO SCH (08:49)
[2021-09-29] MEDS: LOSARTAN 50MG TABLET PO SCH (08:49)
[2021-09-29] MEDS: CEFDINIR 300 MG CAP (OMNICEF) PO SCH ×2 (08:50→22:23)
[2021-09-29] MEDS: PRAMIPEXOLE 1 MG TAB PO SCH ×3 (08:50→22:23)
[2021-09-29] MEDS: ENOXAPARIN 40MG/0.4ML SYRINGE (J1650 PER 10MG) SC SCH (08:50)
[2021-09-29] MEDS: allopurinoL 300 MG TAB PO SCH (08:50)
[2021-09-29] MEDS: PANTOPRAZOLE 40MG TAB (PROTONIX) PO SCH (08:50)
[2021-09-29] MEDS: SINEMET 25-100 MG TAB PO SCH ×4 (08:50→22:23)
[2021-09-29] MEDS: SIMVASTATIN 40 MG TAB PO SCH (22:23)
[2021-09-29] MEDS: ACETAMINOPHEN TAB 650MG DOSE (2X325MG) PO PRN (22:23)
[2021-09-30] MEDS: ACETAMINOPHEN TAB 650MG DOSE (2X325MG) PO PRN (05:27)
[2021-09-30] MEDS: LEVOTHYROXINE 75MCG TABLET (0.075MG) PO SCH (05:28)
[2021-09-30 06:00] VITALS: BP 135/73
[2021-09-30 07:25] LABS: BASO # 0.2 10^3/uL (0.0-0.2); BASO % 0.9 % (0.0-1.0); EOS # 0.7 10^3/uL (0.0-0.5); EOS % 3.9 % (0.0-3.0); HEMOGLOBIN 12.9 g/dl (12.0-15.5); LYMPH # 2.5 10^3/uL (1.5-5.0); LYMPH % 14.5 % (24.0-44.0); MEAN CORPUSCULAR HEMOGLOBIN 28.9 pg (27.0-33.0); MEAN CORPUSCULAR HGB CONC 32.3 g/dl (32.0-36.5); MEAN CORPUSCULAR VOLUME 89.5 fl (80.0-96.0); MONO # 1.1 10^3/uL (0.0-0.8); MONO % 6.4 % (2.0-8.0); NEUTROPHILS # 12.3 10^3/uL (1.5-8.5); PLATELET COUNT, AUTOMATED 296 10^3/uL (150-450); RED BLOOD COUNT 4.47 10^6/uL (4.00-5.40); WHITE BLOOD COUNT 16.9 10^3/uL (4.0-10.0)
[2021-09-30] MEDS: LEVALBUTEROL 1.25 MG/0.5 ML CONCENTRATE NEB INH SCH ×3 (07:41→20:00)
[2021-09-30 07:50] LABS: BLOOD UREA NITROGEN 18 MG/DL (7-18); CALCIUM LEVEL 8.9 MG/DL (8.8-10.2); CARBON DIOXIDE LEVEL 24 MEQ/L (21-32); CHLORIDE LEVEL 105 MEQ/L (98-107); CREATININE FOR GFR 0.75 MG/DL (0.55-1.30); GLOMERULAR FILTRATION RATE > 60.0 (>39); GLUCOSE, FASTING 133 MG/DL (70-100); SODIUM LEVEL 139 MEQ/L (136-145)
[2021-09-30] MEDS: HumaLOG INSULIN (NovoLOG) PER UNIT SC SCH ×4 (08:15→20:46)
[2021-09-30] MEDS: allopurinoL 300 MG TAB PO SCH (08:16)
[2021-09-30] MEDS: SINEMET 25-100 MG TAB PO SCH ×4 (08:16→21:07)
[2021-09-30] MEDS: ENOXAPARIN 40MG/0.4ML SYRINGE (J1650 PER 10MG) SC SCH (08:16)
[2021-09-30] MEDS: PANTOPRAZOLE 40MG TAB (PROTONIX) PO SCH (08:16)
[2021-09-30] MEDS: LOSARTAN 50MG TABLET PO SCH (08:18)
[2021-09-30] MEDS: PRAMIPEXOLE 1 MG TAB PO SCH ×3 (08:18→21:07)
[2021-09-30] MEDS: LACTOBACILLUS ACIDOPHILUS CAP (BACID) PO SCH ×2 (08:18→17:37)
[2021-09-30] MEDS: CEFDINIR 300 MG CAP (OMNICEF) PO SCH (08:19)
[2021-09-30] MEDS: CARVedilol 6.25 MG TAB PO SCH ×2 (08:19→21:07)
[2021-09-30] MEDS: PIPERACILLIN/TAZOBACTAM SOD 4.5 GM in D5W MINI-BAG PLUS 50 ML IV SCH ×2 (15:24→21:08)
[2021-09-30 20:43] VITALS: BP 134/77
[2021-09-30] MEDS: SIMVASTATIN 40 MG TAB PO SCH (21:07)
[2021-10-01] MEDS: PIPERACILLIN/TAZOBACTAM SOD 4.5 GM in D5W MINI-BAG PLUS 50 ML IV SCH ×4 (02:58→20:34)
[2021-10-01] MEDS: ACETAMINOPHEN TAB 650MG DOSE (2X325MG) PO PRN (06:00)
[2021-10-01] MEDS: LEVOTHYROXINE 88MCG TABLET (0.088 MG) PO SCH (06:00)
[2021-10-01 06:34] LABS: BASO # 0.2 10^3/uL (0.0-0.2); BASO % 1.1 % (0.0-1.0); EOS # 0.7 10^3/uL (0.0-0.5); EOS % 4.8 % (0.0-3.0); HEMATOCRIT 39.4 % (36.0-47.0); HEMOGLOBIN 12.5 g/dl (12.0-15.5); LYMPH # 3.2 10^3/uL (1.5-5.0); LYMPH % 22.7 % (24.0-44.0); MEAN CORPUSCULAR HEMOGLOBIN 29.1 pg (27.0-33.0); MEAN CORPUSCULAR HGB CONC 31.7 g/dl (32.0-36.5); MEAN CORPUSCULAR VOLUME 91.8 fl (80.0-96.0); MONO # 0.9 10^3/uL (0.0-0.8); MONO % 6.1 % (2.0-8.0); NEUTROPHILS # 8.9 10^3/uL (1.5-8.5); NEUTROPHILS % 63.4 % (36.0-66.0); PLATELET COUNT, AUTOMATED 303 10^3/uL (150-450); RED BLOOD COUNT 4.29 10^6/uL (4.00-5.40); WHITE BLOOD COUNT 14.1 10^3/uL (4.0-10.0)
[2021-10-01 07:03] LABS: CALCIUM LEVEL 8.5 MG/DL (8.8-10.2); CREATININE FOR GFR 1.04 MG/DL (0.55-1.30); POTASSIUM SERUM 3.8 MEQ/L (3.5-5.1)
[2021-10-01] MEDS: LEVALBUTEROL 1.25 MG/0.5 ML CONCENTRATE NEB INH SCH ×3 (07:50→20:46)
[2021-10-01] MEDS: allopurinoL 300 MG TAB PO SCH (09:00)
[2021-10-01] MEDS: HumaLOG INSULIN (NovoLOG) PER UNIT SC SCH ×4 (09:52→20:32)
[2021-10-01] MEDS: ENOXAPARIN 40MG/0.4ML SYRINGE (J1650 PER 10MG) SC SCH (09:52)
[2021-10-01] MEDS: PRAMIPEXOLE 1 MG TAB PO SCH ×3 (09:53→20:32)
[2021-10-01] MEDS: LACTOBACILLUS ACIDOPHILUS CAP (BACID) PO SCH ×2 (09:53→17:27)
[2021-10-01] MEDS: PANTOPRAZOLE 40MG TAB (PROTONIX) PO SCH (09:53)
[2021-10-01] MEDS: SINEMET 25-100 MG TAB PO SCH ×4 (09:53→20:32)
[2021-10-01] MEDS: CARVedilol 6.25 MG TAB PO SCH ×2 (09:55→20:32)
[2021-10-01] MEDS: LOSARTAN 50MG TABLET PO SCH (09:55)
[2021-10-01] MEDS: SIMVASTATIN 40 MG TAB PO SCH (20:32)
[2021-10-02] MEDS: PIPERACILLIN/TAZOBACTAM SOD 4.5 GM in D5W MINI-BAG PLUS 50 ML IV SCH ×4 (03:08→21:46)
[2021-10-02 06:00] VITALS: BP 147/83
[2021-10-02] MEDS: LEVOTHYROXINE 75MCG TABLET (0.075MG) PO SCH (06:10)
[2021-10-02 06:38] LABS: BASO # 0.2 10^3/uL (0.0-0.2); BASO % 1.2 % (0.0-1.0); EOS # 0.7 10^3/uL (0.0-0.5); EOS % 5.3 % (0.0-3.0); HEMATOCRIT 40.1 % (36.0-47.0); HEMOGLOBIN 12.6 g/dl (12.0-15.5); LYMPH # 2.7 10^3/uL (1.5-5.0); LYMPH % 20.7 % (24.0-44.0); MEAN CORPUSCULAR HEMOGLOBIN 28.6 pg (27.0-33.0); MEAN CORPUSCULAR HGB CONC 31.4 g/dl (32.0-36.5); MEAN CORPUSCULAR VOLUME 91.1 fl (80.0-96.0); MONO # 0.9 10^3/uL (0.0-0.8); MONO % 7.3 % (2.0-8.0); NEUTROPHILS # 8.1 10^3/uL (1.5-8.5); PLATELET COUNT, AUTOMATED 326 10^3/uL (150-450); WHITE BLOOD COUNT 12.9 10^3/uL (4.0-10.0)
[2021-10-02 06:54] LABS: BLOOD UREA NITROGEN 18 MG/DL (7-18); CALCIUM LEVEL 8.6 MG/DL (8.8-10.2); CARBON DIOXIDE LEVEL 26 MEQ/L (21-32); CHLORIDE LEVEL 107 MEQ/L (98-107); CREATININE FOR GFR 0.89 MG/DL (0.55-1.30); GLOMERULAR FILTRATION RATE > 60.0 (>39); GLUCOSE, FASTING 134 MG/DL (70-100); SODIUM LEVEL 141 MEQ/L (136-145)
[2021-10-02] MEDS: LEVALBUTEROL 1.25 MG/0.5 ML CONCENTRATE NEB INH SCH ×3 (07:34→20:34)
[2021-10-02] MEDS: ENOXAPARIN 40MG/0.4ML SYRINGE (J1650 PER 10MG) SC SCH (09:04)
[2021-10-02] MEDS: HumaLOG INSULIN (NovoLOG) PER UNIT SC SCH ×4 (09:04→20:16)
[2021-10-02] MEDS: PRAMIPEXOLE 1 MG TAB PO SCH ×3 (09:05→21:46)
[2021-10-02] MEDS: LOSARTAN 50MG TABLET PO SCH (09:08)
[2021-10-02] MEDS: PANTOPRAZOLE 40MG TAB (PROTONIX) PO SCH (09:08)
[2021-10-02] MEDS: LACTOBACILLUS ACIDOPHILUS CAP (BACID) PO SCH ×2 (09:08→17:30)
[2021-10-02] MEDS: SINEMET 25-100 MG TAB PO SCH ×4 (09:08→21:46)
[2021-10-02] MEDS: CARVedilol 6.25 MG TAB PO SCH ×2 (09:08→21:46)
[2021-10-02] MEDS: allopurinoL 300 MG TAB PO SCH (09:09)
[2021-10-02] MEDS: VANCOMYCIN HCL 1,000 MG, VIAL MATE ADAPTER 1 EACH in NS 250 ML IV SCH ×2 (10:52→23:11)
[2021-10-02] MEDS ORDERED: VANCOMYCIN HCL 750 MG, VIAL MATE ADAPTER 1 EACH in NS 250 ML IV ONE (12:00)
[2021-10-02] MEDS: SIMVASTATIN 40 MG TAB PO SCH (21:46)
[2021-10-03] MEDS: PIPERACILLIN/TAZOBACTAM SOD 4.5 GM in D5W MINI-BAG PLUS 50 ML IV SCH ×2 (03:21→08:09)
[2021-10-03] MEDS: LEVOTHYROXINE 88MCG TABLET (0.088 MG) PO SCH (05:13)
[2021-10-03 06:07] LABS: BASO # 0.1 10^3/uL (0.0-0.2); BASO % 1.2 % (0.0-1.0); EOS # 0.6 10^3/uL (0.0-0.5); EOS % 4.6 % (0.0-3.0); HEMATOCRIT 38.4 % (36.0-47.0); HEMOGLOBIN 12.2 g/dl (12.0-15.5); LYMPH % 25.4 % (24.0-44.0); MEAN CORPUSCULAR HEMOGLOBIN 29.2 pg (27.0-33.0); MEAN CORPUSCULAR HGB CONC 31.8 g/dl (32.0-36.5); MEAN CORPUSCULAR VOLUME 91.9 fl (80.0-96.0); MONO # 0.9 10^3/uL (0.0-0.8); MONO % 7.2 % (2.0-8.0); NEUTROPHILS # 7.1 10^3/uL (1.5-8.5); NEUTROPHILS % 59.7 % (36.0-66.0); PLATELET COUNT, AUTOMATED 327 10^3/uL (150-450); RED BLOOD COUNT 4.18 10^6/uL (4.00-5.40); WHITE BLOOD COUNT 11.9 10^3/uL (4.0-10.0)
[2021-10-03 06:40] VITALS: BP 144/79
[2021-10-03] MEDS: LEVALBUTEROL 1.25 MG/0.5 ML CONCENTRATE NEB INH SCH ×3 (07:25→20:46)
[2021-10-03 07:33] LABS: BLOOD UREA NITROGEN 16 MG/DL (7-18); CALCIUM LEVEL 8.5 MG/DL (8.8-10.2); CARBON DIOXIDE LEVEL 25 MEQ/L (21-32); CHLORIDE LEVEL 109 MEQ/L (98-107); GLOMERULAR FILTRATION RATE > 60.0 (>39); GLUCOSE, FASTING 131 MG/DL (70-100); SODIUM LEVEL 142 MEQ/L (136-145)
[2021-10-03] MEDS: ENOXAPARIN 40MG/0.4ML SYRINGE (J1650 PER 10MG) SC SCH (08:09)
[2021-10-03] MEDS: PANTOPRAZOLE 40MG TAB (PROTONIX) PO SCH (08:10)
[2021-10-03] MEDS: HumaLOG INSULIN (NovoLOG) PER UNIT SC SCH ×4 (08:10→21:00)
[2021-10-03] MEDS: LOSARTAN 50MG TABLET PO SCH (08:11)
[2021-10-03] MEDS: PRAMIPEXOLE 1 MG TAB PO SCH ×3 (08:11→21:26)
[2021-10-03] MEDS: CARVedilol 6.25 MG TAB PO SCH ×2 (08:11→21:28)
[2021-10-03] MEDS: allopurinoL 300 MG TAB PO SCH (08:11)
[2021-10-03] MEDS: LACTOBACILLUS ACIDOPHILUS CAP (BACID) PO SCH ×2 (08:11→17:51)
[2021-10-03] MEDS: SINEMET 25-100 MG TAB PO SCH ×4 (08:11→21:26)
[2021-10-03] MEDS ORDERED: PROHANCE 279.3MG/ML 15ML VIAL As Ordered ONE (08:58)
[2021-10-03] MEDS ORDERED: PROHANCE 279.3MG/ML 5ML VIAL As Ordered ONE (08:58)
[2021-10-03] MEDS: VANCOMYCIN HCL 1,000 MG, VIAL MATE ADAPTER 1 EACH in NS 250 ML IV SCH (11:00)
[2021-10-03] MEDS: SIMVASTATIN 40 MG TAB PO SCH (21:25)
[2021-10-04] MEDS: LEVOTHYROXINE 75MCG TABLET (0.075MG) PO SCH (05:30)
[2021-10-04 06:34] VITALS: BP 150/97
[2021-10-04] MEDS: LEVALBUTEROL 1.25 MG/0.5 ML CONCENTRATE NEB INH SCH ×3 (06:35→20:03)
[2021-10-04 08:03] LABS: BASO # 0.1 10^3/uL (0.0-0.2); BASO % 1.1 % (0.0-1.0); EOS # 0.4 10^3/uL (0.0-0.5); EOS % 4.2 % (0.0-3.0); HEMATOCRIT 40.7 % (36.0-47.0); HEMOGLOBIN 12.7 g/dl (12.0-15.5); LYMPH # 2.9 10^3/uL (1.5-5.0); LYMPH % 28.1 % (24.0-44.0); MEAN CORPUSCULAR HEMOGLOBIN 28.7 pg (27.0-33.0); MEAN CORPUSCULAR HGB CONC 31.2 g/dl (32.0-36.5); MEAN CORPUSCULAR VOLUME 92.1 fl (80.0-96.0); MONO # 0.7 10^3/uL (0.0-0.8); MONO % 6.8 % (2.0-8.0); NEUTROPHILS # 6.1 10^3/uL (1.5-8.5); NEUTROPHILS % 58.3 % (36.0-66.0); PLATELET COUNT, AUTOMATED 346 10^3/uL (150-450); RED BLOOD COUNT 4.42 10^6/uL (4.00-5.40); WHITE BLOOD COUNT 10.4 10^3/uL (4.0-10.0)
[2021-10-04] MEDS: CARVedilol 6.25 MG TAB PO SCH ×2 (08:51→20:29)
[2021-10-04] MEDS: LOSARTAN 50MG TABLET PO SCH (08:51)
[2021-10-04] MEDS: HumaLOG INSULIN (NovoLOG) PER UNIT SC SCH ×4 (08:51→20:29)
[2021-10-04] MEDS: LACTOBACILLUS ACIDOPHILUS CAP (BACID) PO SCH ×2 (08:51→17:10)
[2021-10-04] MEDS: ENOXAPARIN 40MG/0.4ML SYRINGE (J1650 PER 10MG) SC SCH (08:52)
[2021-10-04] MEDS: PRAMIPEXOLE 1 MG TAB PO SCH ×3 (08:52→20:28)
[2021-10-04] MEDS: SINEMET 25-100 MG TAB PO SCH ×4 (08:52→20:28)
[2021-10-04] MEDS: allopurinoL 300 MG TAB PO SCH (08:52)
[2021-10-04] MEDS: PANTOPRAZOLE 40MG TAB (PROTONIX) PO SCH (08:52)
[2021-10-04] MEDS: SIMVASTATIN 40 MG TAB PO SCH (20:28)
[2021-10-05 05:45] LABS: BASO # 0.2 10^3/uL (0.0-0.2); BASO % 1.4 % (0.0-1.0); EOS # 0.4 10^3/uL (0.0-0.5); EOS % 3.5 % (0.0-3.0); HEMATOCRIT 40.4 % (36.0-47.0); HEMOGLOBIN 12.8 g/dl (12.0-15.5); LYMPH # 2.9 10^3/uL (1.5-5.0); LYMPH % 26.6 % (24.0-44.0); MEAN CORPUSCULAR HEMOGLOBIN 29.2 pg (27.0-33.0); MEAN CORPUSCULAR HGB CONC 31.7 g/dl (32.0-36.5); MONO # 0.7 10^3/uL (0.0-0.8); MONO % 6.8 % (2.0-8.0); NEUTROPHILS # 6.5 10^3/uL (1.5-8.5); NEUTROPHILS % 60.8 % (36.0-66.0); PLATELET COUNT, AUTOMATED 341 10^3/uL (150-450); RED BLOOD COUNT 4.39 10^6/uL (4.00-5.40); WHITE BLOOD COUNT 10.8 10^3/uL (4.0-10.0)
[2021-10-05 06:00] VITALS: BP 156/89
[2021-10-05] MEDS: LEVOTHYROXINE 88MCG TABLET (0.088 MG) PO SCH (06:03)
[2021-10-05] MEDS: ACETAMINOPHEN TAB 650MG DOSE (2X325MG) PO PRN ×2 (06:05→20:20)
[2021-10-05 06:10] LABS: BLOOD UREA NITROGEN 16 MG/DL (7-18); CALCIUM LEVEL 8.9 MG/DL (8.8-10.2); CARBON DIOXIDE LEVEL 25 MEQ/L (21-32); CHLORIDE LEVEL 108 MEQ/L (98-107); CREATININE FOR GFR 0.82 MG/DL (0.55-1.30); GLOMERULAR FILTRATION RATE > 60.0 (>39); GLUCOSE, FASTING 132 MG/DL (70-100); MAGNESIUM LEVEL 2.1 MG/DL (1.8-2.4); POTASSIUM SERUM 4.5 MEQ/L (3.5-5.1); SODIUM LEVEL 140 MEQ/L (136-145)
[2021-10-05] MEDS: LEVALBUTEROL 1.25 MG/0.5 ML CONCENTRATE NEB INH SCH ×3 (07:52→19:45)
[2021-10-05] MEDS: CARVedilol 6.25 MG TAB PO SCH ×2 (08:14→20:19)
[2021-10-05] MEDS: PANTOPRAZOLE 40MG TAB (PROTONIX) PO SCH (08:14)
[2021-10-05] MEDS: PRAMIPEXOLE 1 MG TAB PO SCH ×3 (08:14→20:19)
[2021-10-05] MEDS: HumaLOG INSULIN (NovoLOG) PER UNIT SC SCH ×4 (08:14→20:20)
[2021-10-05] MEDS: SINEMET 25-100 MG TAB PO SCH ×4 (08:14→20:20)
[2021-10-05] MEDS: LOSARTAN 50MG TABLET PO SCH (08:14)
[2021-10-05] MEDS: LACTOBACILLUS ACIDOPHILUS CAP (BACID) PO SCH ×2 (08:14→17:10)
[2021-10-05] MEDS: ENOXAPARIN 40MG/0.4ML SYRINGE (J1650 PER 10MG) SC SCH (08:15)
[2021-10-05] MEDS: allopurinoL 300 MG TAB PO SCH (08:15)
[2021-10-05 20:19] VITALS: BP 145/89
[2021-10-05] MEDS: SIMVASTATIN 40 MG TAB PO SCH (20:19)
[2021-10-06 06:00] VITALS: BP 151/86
[2021-10-06] MEDS: LEVOTHYROXINE 75MCG TABLET (0.075MG) PO SCH (06:23)
[2021-10-06] MEDS: LEVALBUTEROL 1.25 MG/0.5 ML CONCENTRATE NEB INH SCH (07:29)
[2021-10-06] MEDS ORDERED: CARV6.25 PO (07:59)
[2021-10-06] MEDS ORDERED: COZA50TA PO (07:59)
[2021-10-06] MEDS ORDERED: COMT200T PO (07:59)
[2021-10-06] MEDS: PRAMIPEXOLE 1 MG TAB PO SCH (08:12)
[2021-10-06] MEDS: allopurinoL 300 MG TAB PO SCH (08:13)
[2021-10-06] MEDS: LOSARTAN 50MG TABLET PO SCH (08:13)
[2021-10-06] MEDS: CARVedilol 6.25 MG TAB PO SCH (08:13)
[2021-10-06] MEDS: ENOXAPARIN 40MG/0.4ML SYRINGE (J1650 PER 10MG) SC SCH (08:13)
[2021-10-06] MEDS: LACTOBACILLUS ACIDOPHILUS CAP (BACID) PO SCH (08:13)
[2021-10-06] MEDS: SINEMET 25-100 MG TAB PO SCH (08:13)
[2021-10-06] MEDS: PANTOPRAZOLE 40MG TAB (PROTONIX) PO SCH (08:13)
[2021-10-06] MEDS: HumaLOG INSULIN (NovoLOG) PER UNIT SC SCH (08:14)
[2021-10-06] MEDS ORDERED: ENTACAPONE 200MG TABLET (COMTAN) PO SCH (09:00)
[2021-10-06] MEDS ORDERED: ONDANSETRON 4 MG ORAL DISINTEGRATING TAB PO ONE (10:30)
== END 2021-10-06 11:20 | DRG 871 ==
LOC: M ED 13:24 → EDBD 13:24 → M ED INP 18:29 → M MS5PR 09-26 01:58
PROVIDERS: ADMIT Family Medicine; ATTEND Family Medicine
DX: A41.9 Sepsis, unspecified organism (principal); G93.41 Metabolic encephalopathy; N39.0 Urinary tract infection, site not specified; L97.518 Non-pressure chronic ulcer of other part of right foot with other specified severity; R53.1 Weakness; E11.621 Type 2 diabetes mellitus with foot ulcer; G20 Parkinson's disease; I10 Essential (primary) hypertension; E78.5 Hyperlipidemia, unspecified; Z66 Do not resuscitate; E03.9 Hypothyroidism, unspecified; J45.909 Unspecified asthma, uncomplicated; B96.20 Unspecified Escherichia coli [E. coli] as the cause of diseases classified elsewhere; M10.9 Gout, unspecified; G47.33 Obstructive sleep apnea (adult) (pediatric); K21.9 Gastro-esophageal reflux disease without esophagitis; Z79.899 Other long term (current) drug therapy; Z20.822 Contact with and (suspected) exposure to COVID-19; Z88.8 Allergy status to other drugs, medicaments and biological substances

== ENCOUNTER 2021-10-23 22:25 | Inpatient (IN) | payer MEDICARE, OTHER ==
[~2021-10-23] VITALS: Ht 172.7 cm; Wt 125.3 kg
[~2021-10-23 22:25] MED LIST changes: +ALLO300T2 PO; +CARV6.25 PO; +COMT200T PO; +COZA50TA PO; -D31000TA2 PO; +SYNT88TA2 PO; +VITA100018 PO; +VITA100093 PO
[2021-10-23] MEDS ORDERED: ACETAMINOPHEN 325 MG TAB PO ONE (22:40)
[2021-10-23 23:23] LABS: BASO # 0.1 10^3/uL (0.0-0.2); BASO % 0.4 % (0.0-1.0); EOS % 0.2 % (0.0-3.0); HEMATOCRIT 37.8 % (36.0-47.0); HEMOGLOBIN 12.3 g/dl (12.0-15.5); LYMPH # 0.7 10^3/uL (1.5-5.0); LYMPH % 3.7 % (24.0-44.0); MEAN CORPUSCULAR HEMOGLOBIN 28.9 pg (27.0-33.0); MEAN CORPUSCULAR HGB CONC 32.5 g/dl (32.0-36.5); MEAN CORPUSCULAR VOLUME 88.9 fl (80.0-96.0); MONO # 0.8 10^3/uL (0.0-0.8); MONO % 4.3 % (2.0-8.0); NEUTROPHILS # 17.2 10^3/uL (1.5-8.5); NEUTROPHILS % 90.8 % (36.0-66.0); PLATELET COUNT, AUTOMATED 258 10^3/uL (150-450); RED BLOOD COUNT 4.25 10^6/uL (4.00-5.40)
[2021-10-23 23:58] LABS: ALBUMIN 3.1 GM/DL (3.2-5.2); BILIRUBIN,DIRECT 0.2 MG/DL (0.0-0.2); BILIRUBIN,TOTAL 0.5 MG/DL (0.2-1.0); TOTAL PROTEIN 7.4 GM/DL (6.4-8.2)
[2021-10-24 01:02] LABS: RSV AMPLIFICATION NEGATIVE (NEGATIVE)
[2021-10-24] MEDS ORDERED: VANCOMYCIN HCL 1,000 MG in IV FLUID PLACE HOLDER 1 EA IV SCH (05:50)
[2021-10-24] MEDS ORDERED: ACETAMINOPHEN TAB 650MG DOSE (2X325MG) PO PRN (05:55)
[2021-10-24] MEDS ORDERED: ENTA1TAB PO (05:58)
[2021-10-24] MEDS ORDERED: LOSA25TA13 PO (06:02)
[2021-10-24] MEDS ORDERED: ACET650T61 PO (06:02)
[2021-10-24] MEDS ORDERED: SENN1TAB41 PO (06:02)
[2021-10-24] MEDS ORDERED: VITMTA PO (06:02)
[2021-10-24] MEDS ORDERED: GLUCOSE 4GM CHEW TABLET PO PRN (06:05)
[2021-10-24] MEDS ORDERED: GLUCAGON INJ 1MG VIAL SC PRN (06:05)
[2021-10-24] MEDS ORDERED: HOME MED LIST COMPLETE! XX SCH (06:05)
[2021-10-24] MEDS ORDERED: LEVALBUTEROL HFA 45MCG/ACT 15 GM INHALER INH PRN (06:05)
[2021-10-24] MEDS ORDERED: DEXTROSE 50% 50 ML SYRINGE IV PRN (06:05)
[2021-10-24] MEDS: LEVOTHYROXINE 88MCG TABLET (0.088 MG) PO SCH (06:33)
[2021-10-24] MEDS ORDERED: PIPERACILLIN/TAZOBACTAM SOD 3.375 GM in D5W MINI-BAG PLUS 50 ML IV ONE (07:00)
[2021-10-24 07:24] LABS: BASO # 0.1 10^3/uL (0.0-0.2); BASO % 0.5 % (0.0-1.0); EOS # 0.1 10^3/uL (0.0-0.5); EOS % 0.4 % (0.0-3.0); HEMATOCRIT 37.1 % (36.0-47.0); HEMOGLOBIN 12.1 g/dl (12.0-15.5); LYMPH # 0.8 10^3/uL (1.5-5.0); LYMPH % 5.3 % (24.0-44.0); MEAN CORPUSCULAR HEMOGLOBIN 28.9 pg (27.0-33.0); MEAN CORPUSCULAR HGB CONC 32.6 g/dl (32.0-36.5); MEAN CORPUSCULAR VOLUME 88.5 fl (80.0-96.0); MONO # 0.9 10^3/uL (0.0-0.8); MONO % 5.8 % (2.0-8.0); NEUTROPHILS # 13.6 10^3/uL (1.5-8.5); NEUTROPHILS % 87.4 % (36.0-66.0); PLATELET COUNT, AUTOMATED 245 10^3/uL (150-450); RED BLOOD COUNT 4.19 10^6/uL (4.00-5.40); WHITE BLOOD COUNT 15.6 10^3/uL (4.0-10.0)
[2021-10-24 07:54] LABS: BLOOD UREA NITROGEN 16 MG/DL (7-18); CALCIUM LEVEL 8.7 MG/DL (8.8-10.2); CARBON DIOXIDE LEVEL 27 MEQ/L (21-32); CHLORIDE LEVEL 109 MEQ/L (98-107); CREATININE FOR GFR 0.88 MG/DL (0.55-1.30); GLOMERULAR FILTRATION RATE > 60.0 (>39); GLUCOSE, FASTING 115 MG/DL (70-100); POTASSIUM SERUM 3.8 MEQ/L (3.5-5.1); SODIUM LEVEL 140 MEQ/L (136-145)
[2021-10-24] MEDS ORDERED: ENOXAPARIN 40MG/0.4ML SYRINGE (J1650 PER 10MG) SC SCH (09:00)
[2021-10-24] MEDS ORDERED: VANCOMYCIN HCL 1,000 MG, VIAL MATE ADAPTER 1 EACH in NS 250 ML IV ONE (09:00)
[2021-10-24] MEDS: MIRALAX *UNIT DOSE* 17GM PACKET PO SCH (09:44)
[2021-10-24] MEDS: LOSARTAN 25 MG TAB PO SCH (09:44)
[2021-10-24] MEDS: NS 1,000 ML IV SCH ×2 (09:44→21:03)
[2021-10-24] MEDS: VANCOMYCIN HCL 1,000 MG, VIAL MATE ADAPTER 1 EACH in NS 250 ML IV SCH ×2 (09:45→21:03)
[2021-10-24] MEDS: MULTIVITAMINS/MINERALS THERAP 1 TAB PO SCH (09:49)
[2021-10-24] MEDS: SINEMET 25-100 MG TAB PO SCH ×4 (09:50→21:03)
[2021-10-24] MEDS: PRAMIPEXOLE 1 MG TAB PO SCH ×3 (09:50→21:03)
[2021-10-24] MEDS: DOCUSATE SODIUM 100MG CAPSULE PO SCH ×2 (09:50→21:03)
[2021-10-24] MEDS: HumaLOG INSULIN (NovoLOG) PER UNIT SC SCH ×4 (09:50→20:58)
[2021-10-24] MEDS: CYANOCOBALAMIN 500 MCG TAB PO SCH (09:50)
[2021-10-24] MEDS: VITAMIN D 1,000 INTERNATIONAL UNITS TABLET PO SCH (09:50)
[2021-10-24] MEDS: PANTOPRAZOLE 40MG TAB (PROTONIX) PO SCH (09:50)
[2021-10-24] MEDS: ENTACAPONE 200MG TABLET (COMTAN) PO SCH ×4 (09:50→21:03)
[2021-10-24] MEDS: allopurinoL 300 MG TAB PO SCH (09:51)
[2021-10-24] MEDS: ENOXAPARIN 40MG/0.4ML SYRINGE (J1650 PER 10MG) SC SCH (09:51)
[2021-10-24] MEDS ORDERED: ISOVUE-370 76% 100ML VIAL As Ordered ONE (10:41)
[2021-10-24] MEDS: LACTOBACILLUS ACIDOPHILUS CAP (BACID) PO SCH ×2 (11:46→18:26)
[2021-10-24] MEDS: PIPERACILLIN/TAZOBACTAM SOD 3.375 GM in D5W MINI-BAG PLUS 50 ML IV SCH ×2 (12:28→18:26)
[2021-10-24 14:00] VITALS: BP 136/73
[2021-10-24] MEDS: SIMVASTATIN 40 MG TAB PO SCH (21:03)
[2021-10-24] MEDS: SENOKOT S TAB PO SCH (21:03)
[2021-10-24 22:00] VITALS: BP 141/76
[2021-10-25] MEDS: PIPERACILLIN/TAZOBACTAM SOD 3.375 GM in D5W MINI-BAG PLUS 50 ML IV SCH ×4 (00:21→18:11)
[2021-10-25] MEDS: LEVOTHYROXINE 75MCG TABLET (0.075MG) PO SCH (05:40)
[2021-10-25 06:00] VITALS: BP 139/76
[2021-10-25 07:13] LABS: HEMATOCRIT 37.2 % (36.0-47.0); HEMOGLOBIN 11.9 g/dl (12.0-15.5); MEAN CORPUSCULAR HEMOGLOBIN 28.5 pg (27.0-33.0); MEAN CORPUSCULAR VOLUME 89.2 fl (80.0-96.0); PLATELET COUNT, AUTOMATED 221 10^3/uL (150-450); RED BLOOD COUNT 4.17 10^6/uL (4.00-5.40); WHITE BLOOD COUNT 8.4 10^3/uL (4.0-10.0)
[2021-10-25] MEDS: HumaLOG INSULIN (NovoLOG) PER UNIT SC SCH ×4 (07:30→21:00)
[2021-10-25 07:32] LABS: ALBUMIN 2.7 GM/DL (3.2-5.2); ALT/SGPT 13 U/L (12-78); BILIRUBIN,TOTAL 0.4 MG/DL (0.2-1.0); BLOOD UREA NITROGEN 13 MG/DL (7-18); CALCIUM LEVEL 8.5 MG/DL (8.8-10.2); CARBON DIOXIDE LEVEL 26 MEQ/L (21-32); CHLORIDE LEVEL 112 MEQ/L (98-107); CREATININE FOR GFR 0.85 MG/DL (0.55-1.30); GLOMERULAR FILTRATION RATE > 60.0 (>39); GLUCOSE, FASTING 115 MG/DL (70-100); POTASSIUM SERUM 3.9 MEQ/L (3.5-5.1); SODIUM LEVEL 142 MEQ/L (136-145); TOTAL PROTEIN 6.7 GM/DL (6.4-8.2)
[2021-10-25] MEDS: NS 1,000 ML IV SCH (08:15)
[2021-10-25] MEDS: MULTIVITAMINS/MINERALS THERAP 1 TAB PO SCH (08:24)
[2021-10-25] MEDS: ENOXAPARIN 40MG/0.4ML SYRINGE (J1650 PER 10MG) SC SCH (08:24)
[2021-10-25] MEDS: VANCOMYCIN HCL 1,000 MG, VIAL MATE ADAPTER 1 EACH in NS 250 ML IV SCH ×2 (08:24→20:02)
[2021-10-25] MEDS: MIRALAX *UNIT DOSE* 17GM PACKET PO SCH (08:24)
[2021-10-25] MEDS: CYANOCOBALAMIN 500 MCG TAB PO SCH (08:25)
[2021-10-25] MEDS: allopurinoL 300 MG TAB PO SCH (08:25)
[2021-10-25] MEDS: LACTOBACILLUS ACIDOPHILUS CAP (BACID) PO SCH ×2 (08:25→18:11)
[2021-10-25] MEDS: VITAMIN D 1,000 INTERNATIONAL UNITS TABLET PO SCH (08:25)
[2021-10-25] MEDS: PANTOPRAZOLE 40MG TAB (PROTONIX) PO SCH (08:25)
[2021-10-25] MEDS: ENTACAPONE 200MG TABLET (COMTAN) PO SCH ×4 (08:25→20:03)
[2021-10-25] MEDS: SINEMET 25-100 MG TAB PO SCH ×4 (08:25→20:03)
[2021-10-25] MEDS: LOSARTAN 25 MG TAB PO SCH (08:25)
[2021-10-25] MEDS: PRAMIPEXOLE 1 MG TAB PO SCH ×3 (08:25→20:12)
[2021-10-25] MEDS: DOCUSATE SODIUM 100MG CAPSULE PO SCH ×2 (08:25→20:03)
[2021-10-25] MEDS ORDERED: PROHANCE 279.3MG/ML 5ML VIAL As Ordered ONE (12:29)
[2021-10-25] MEDS ORDERED: PROHANCE 279.3MG/ML 15ML VIAL As Ordered ONE (12:29)
[2021-10-25 14:00] VITALS: BP 136/75
[2021-10-25] MEDS: SENOKOT S TAB PO SCH (20:03)
[2021-10-25] MEDS: SIMVASTATIN 40 MG TAB PO SCH (20:03)
[2021-10-25 22:00] VITALS: BP 137/75
[2021-10-26] MEDS: NS 1,000 ML IV SCH ×2 (01:09→09:15)
[2021-10-26] MEDS: PIPERACILLIN/TAZOBACTAM SOD 3.375 GM in D5W MINI-BAG PLUS 50 ML IV SCH ×3 (01:09→12:16)
[2021-10-26] MEDS: LEVOTHYROXINE 88MCG TABLET (0.088 MG) PO SCH (05:35)
[2021-10-26 06:00] VITALS: BP 163/86
[2021-10-26 08:40] LABS: HEMATOCRIT 36.8 % (36.0-47.0); HEMOGLOBIN 11.8 g/dl (12.0-15.5); MEAN CORPUSCULAR HEMOGLOBIN 29.1 pg (27.0-33.0); MEAN CORPUSCULAR HGB CONC 32.1 g/dl (32.0-36.5); MEAN CORPUSCULAR VOLUME 90.6 fl (80.0-96.0); PLATELET COUNT, AUTOMATED 226 10^3/uL (150-450); RED BLOOD COUNT 4.06 10^6/uL (4.00-5.40); WHITE BLOOD COUNT 8.8 10^3/uL (4.0-10.0)
[2021-10-26] MEDS: MIRALAX *UNIT DOSE* 17GM PACKET PO SCH (09:00)
[2021-10-26] MEDS: DOCUSATE SODIUM 100MG CAPSULE PO SCH ×2 (09:00→21:00)
[2021-10-26 09:04] LABS: ALBUMIN 2.7 GM/DL (3.2-5.2); ALT/SGPT 15 U/L (12-78); BILIRUBIN,TOTAL 0.3 MG/DL (0.2-1.0); BLOOD UREA NITROGEN 10 MG/DL (7-18); CALCIUM LEVEL 8.4 MG/DL (8.8-10.2); CARBON DIOXIDE LEVEL 27 MEQ/L (21-32); CHLORIDE LEVEL 113 MEQ/L (98-107); CREATININE FOR GFR 0.79 MG/DL (0.55-1.30); GLOMERULAR FILTRATION RATE > 60.0 (>39); GLUCOSE, FASTING 118 MG/DL (70-100); POTASSIUM SERUM 3.8 MEQ/L (3.5-5.1); SODIUM LEVEL 144 MEQ/L (136-145); TOTAL PROTEIN 6.7 GM/DL (6.4-8.2); VANCOMYCIN LEVEL TROUGH 17.3 UG/ML (10.0-20.0)
[2021-10-26] MEDS: HumaLOG INSULIN (NovoLOG) PER UNIT SC SCH ×4 (09:08→21:00)
[2021-10-26] MEDS: VITAMIN D 1,000 INTERNATIONAL UNITS TABLET PO SCH (09:09)
[2021-10-26] MEDS: VANCOMYCIN HCL 1,000 MG, VIAL MATE ADAPTER 1 EACH in NS 250 ML IV SCH (09:09)
[2021-10-26] MEDS: ENOXAPARIN 40MG/0.4ML SYRINGE (J1650 PER 10MG) SC SCH (09:09)
[2021-10-26] MEDS: SINEMET 25-100 MG TAB PO SCH ×4 (09:09→20:26)
[2021-10-26] MEDS: LOSARTAN 25 MG TAB PO SCH (09:09)
[2021-10-26] MEDS: PRAMIPEXOLE 1 MG TAB PO SCH ×3 (09:09→20:26)
[2021-10-26] MEDS: allopurinoL 300 MG TAB PO SCH (09:09)
[2021-10-26] MEDS: LACTOBACILLUS ACIDOPHILUS CAP (BACID) PO SCH ×2 (09:09→17:32)
[2021-10-26] MEDS: PANTOPRAZOLE 40MG TAB (PROTONIX) PO SCH (09:09)
[2021-10-26] MEDS: MULTIVITAMINS/MINERALS THERAP 1 TAB PO SCH (09:09)
[2021-10-26] MEDS: ENTACAPONE 200MG TABLET (COMTAN) PO SCH ×4 (09:09→20:26)
[2021-10-26] MEDS: CYANOCOBALAMIN 500 MCG TAB PO SCH (09:10)
[2021-10-26 14:00] VITALS: BP 130/82
[2021-10-26] MEDS: CLINDAMYCIN 600 MG in IV 1 EA IV SCH ×2 (14:39→22:27)
[2021-10-26] MEDS: SIMVASTATIN 40 MG TAB PO SCH (20:27)
[2021-10-26 21:00] VITALS: BP 161/90
[2021-10-26] MEDS: SENOKOT S TAB PO SCH (21:00)
[2021-10-27 05:33] VITALS: BP 162/92
[2021-10-27] MEDS: LEVOTHYROXINE 75MCG TABLET (0.075MG) PO SCH (05:43)
[2021-10-27] MEDS: CLINDAMYCIN 600 MG in IV 1 EA IV SCH ×3 (05:43→21:59)
[2021-10-27 06:37] LABS: HEMATOCRIT 36.6 % (36.0-47.0); HEMOGLOBIN 11.6 g/dl (12.0-15.5); MEAN CORPUSCULAR HEMOGLOBIN 28.7 pg (27.0-33.0); MEAN CORPUSCULAR HGB CONC 31.7 g/dl (32.0-36.5); MEAN CORPUSCULAR VOLUME 90.6 fl (80.0-96.0); PLATELET COUNT, AUTOMATED 241 10^3/uL (150-450); RED BLOOD COUNT 4.04 10^6/uL (4.00-5.40); WHITE BLOOD COUNT 8.7 10^3/uL (4.0-10.0)
[2021-10-27 07:03] LABS: ALBUMIN 2.6 GM/DL (3.2-5.2); ALT/SGPT 9 U/L (12-78); BILIRUBIN,TOTAL 0.2 MG/DL (0.2-1.0); BLOOD UREA NITROGEN 9 MG/DL (7-18); CALCIUM LEVEL 8.7 MG/DL (8.8-10.2); CARBON DIOXIDE LEVEL 28 MEQ/L (21-32); CHLORIDE LEVEL 114 MEQ/L (98-107); CREATININE FOR GFR 0.78 MG/DL (0.55-1.30); GLOMERULAR FILTRATION RATE > 60.0 (>39); GLUCOSE, FASTING 121 MG/DL (70-100); POTASSIUM SERUM 3.7 MEQ/L (3.5-5.1); SODIUM LEVEL 146 MEQ/L (136-145)
[2021-10-27] MEDS: ENOXAPARIN 40MG/0.4ML SYRINGE (J1650 PER 10MG) SC SCH (08:25)
[2021-10-27] MEDS: MULTIVITAMINS/MINERALS THERAP 1 TAB PO SCH (08:26)
[2021-10-27] MEDS: HumaLOG INSULIN (NovoLOG) PER UNIT SC SCH ×4 (08:26→19:53)
[2021-10-27] MEDS: ENTACAPONE 200MG TABLET (COMTAN) PO SCH ×4 (08:26→20:29)
[2021-10-27] MEDS: allopurinoL 300 MG TAB PO SCH (08:27)
[2021-10-27] MEDS: PANTOPRAZOLE 40MG TAB (PROTONIX) PO SCH (08:27)
[2021-10-27] MEDS: LACTOBACILLUS ACIDOPHILUS CAP (BACID) PO SCH ×2 (08:27→18:08)
[2021-10-27] MEDS: CYANOCOBALAMIN 500 MCG TAB PO SCH (08:27)
[2021-10-27] MEDS: SINEMET 25-100 MG TAB PO SCH ×4 (08:27→20:29)
[2021-10-27] MEDS: VITAMIN D 1,000 INTERNATIONAL UNITS TABLET PO SCH (08:27)
[2021-10-27] MEDS: LOSARTAN 25 MG TAB PO SCH (08:28)
[2021-10-27] MEDS: PRAMIPEXOLE 1 MG TAB PO SCH ×3 (08:28→20:29)
[2021-10-27] MEDS: DOCUSATE SODIUM 100MG CAPSULE PO SCH ×2 (08:29→20:29)
[2021-10-27] MEDS: MIRALAX *UNIT DOSE* 17GM PACKET PO SCH (08:30)
[2021-10-27 14:00] VITALS: BP 130/86
[2021-10-27] MEDS: SENOKOT S TAB PO SCH (20:28)
[2021-10-27] MEDS: SIMVASTATIN 40 MG TAB PO SCH (20:29)
[2021-10-27 22:00] VITALS: BP 138/68
[2021-10-28] MEDS: CLINDAMYCIN 600 MG in IV 1 EA IV SCH ×2 (05:18→14:24)
[2021-10-28] MEDS: LEVOTHYROXINE 88MCG TABLET (0.088 MG) PO SCH (05:18)
[2021-10-28 06:00] VITALS: BP 134/82
[2021-10-28 06:43] LABS: HEMATOCRIT 36.3 % (36.0-47.0); HEMOGLOBIN 11.8 g/dl (12.0-15.5); MEAN CORPUSCULAR HEMOGLOBIN 29.1 pg (27.0-33.0); MEAN CORPUSCULAR HGB CONC 32.5 g/dl (32.0-36.5); MEAN CORPUSCULAR VOLUME 89.4 fl (80.0-96.0); PLATELET COUNT, AUTOMATED 255 10^3/uL (150-450); RED BLOOD COUNT 4.06 10^6/uL (4.00-5.40); WHITE BLOOD COUNT 8.6 10^3/uL (4.0-10.0)
[2021-10-28 07:06] LABS: ALBUMIN 2.6 GM/DL (3.2-5.2); ALT/SGPT 12 U/L (12-78); BILIRUBIN,TOTAL 0.3 MG/DL (0.2-1.0); BLOOD UREA NITROGEN 9 MG/DL (7-18); CALCIUM LEVEL 8.7 MG/DL (8.8-10.2); CARBON DIOXIDE LEVEL 29 MEQ/L (21-32); CHLORIDE LEVEL 110 MEQ/L (98-107); CREATININE FOR GFR 0.72 MG/DL (0.55-1.30); GLOMERULAR FILTRATION RATE > 60.0 (>39); GLUCOSE, FASTING 116 MG/DL (70-100); POTASSIUM SERUM 3.4 MEQ/L (3.5-5.1); SODIUM LEVEL 142 MEQ/L (136-145); TOTAL PROTEIN 6.9 GM/DL (6.4-8.2)
[2021-10-28] MEDS: HumaLOG INSULIN (NovoLOG) PER UNIT SC SCH ×2 (08:18→12:34)
[2021-10-28] MEDS ORDERED: POTASSIUM CHLORIDE 10MEQ SR TABLET PO ONE (08:30)
[2021-10-28] MEDS: CYANOCOBALAMIN 500 MCG TAB PO SCH (08:59)
[2021-10-28] MEDS: PANTOPRAZOLE 40MG TAB (PROTONIX) PO SCH (08:59)
[2021-10-28] MEDS: MULTIVITAMINS/MINERALS THERAP 1 TAB PO SCH (08:59)
[2021-10-28] MEDS: ENOXAPARIN 40MG/0.4ML SYRINGE (J1650 PER 10MG) SC SCH (08:59)
[2021-10-28 09:03] VITALS: BP 150/90
[2021-10-28] MEDS: SINEMET 25-100 MG TAB PO SCH ×2 (09:03→12:34)
[2021-10-28] MEDS: VITAMIN D 1,000 INTERNATIONAL UNITS TABLET PO SCH (09:03)
[2021-10-28] MEDS: allopurinoL 300 MG TAB PO SCH (09:03)
[2021-10-28] MEDS: LOSARTAN 25 MG TAB PO SCH (09:03)
[2021-10-28] MEDS: MIRALAX *UNIT DOSE* 17GM PACKET PO SCH (09:04)
[2021-10-28] MEDS: LACTOBACILLUS ACIDOPHILUS CAP (BACID) PO SCH (09:04)
[2021-10-28] MEDS: DOCUSATE SODIUM 100MG CAPSULE PO SCH (09:04)
[2021-10-28] MEDS: ENTACAPONE 200MG TABLET (COMTAN) PO SCH ×2 (09:09→12:34)
[2021-10-28] MEDS: PRAMIPEXOLE 1 MG TAB PO SCH (09:09)
[2021-10-28] MEDS ORDERED: RISATAB3 PO (13:29)
[2021-10-28] MEDS ORDERED: DOXY-350 PO (13:30)
== END 2021-10-28 16:01 | disposition home health service (06) | DRG 872 ==
LOC: M ED 22:25 → M ED INP 10-24 05:21 → M MSPAV 10-24 07:36
PROVIDERS: ADMIT Family Medicine; ATTEND Family Medicine
DX: A41.9 Sepsis, unspecified organism (principal); L03.115 Cellulitis of right lower limb; Z66 Do not resuscitate; G20 Parkinson's disease; E11.621 Type 2 diabetes mellitus with foot ulcer; L97.519 Non-pressure chronic ulcer of other part of right foot with unspecified severity; I10 Essential (primary) hypertension; G47.33 Obstructive sleep apnea (adult) (pediatric); E03.9 Hypothyroidism, unspecified; E78.5 Hyperlipidemia, unspecified; K59.09 Other constipation; J45.909 Unspecified asthma, uncomplicated; M10.9 Gout, unspecified; Z20.822 Contact with and (suspected) exposure to COVID-19; Z79.899 Other long term (current) drug therapy; Z88.8 Allergy status to other drugs, medicaments and biological substances; Z72.3 Lack of physical exercise; K21.9 Gastro-esophageal reflux disease without esophagitis

== ENCOUNTER → 2022-01-23 | Outpatient (REF) | payer MEDICARE, OTHER ==
[~2022-01-23] MED LIST changes: +ACET650T61 PO; +DOXY-350 PO; +ENTA1TAB PO; +RISATAB3 PO; +SENN1TAB41 PO; +VITMTA PO
== END ==
LOC: M LAB REF 12:39
PROVIDERS: ATTEND Family Medicine
DX: R35.0 Frequency of micturition (principal)

== ENCOUNTER 2022-01-27 17:21 | Inpatient (IN) | payer MEDICARE, OTHER ==
[~2022-01-27] VITALS: Ht 172.7 cm; Wt 124.7 kg
[2022-01-27] MEDS ORDERED: IBUPROFEN 600MG TAB PO ONE (17:50)
[2022-01-27] MEDS ORDERED: NS 1,000 ML IV ONE ×2 (17:50→22:50)
[2022-01-27 18:33] LABS: BASO # 0.1 10^3/uL (0.0-0.2); BASO % 0.3 % (0.0-1.0); HEMATOCRIT 40.1 % (36.0-47.0); HEMOGLOBIN 13.1 g/dl (12.0-15.5); LYMPH # 0.4 10^3/uL (1.5-5.0); MEAN CORPUSCULAR HEMOGLOBIN 29.3 pg (27.0-33.0); MEAN CORPUSCULAR HGB CONC 32.7 g/dl (32.0-36.5); MEAN CORPUSCULAR VOLUME 89.7 fl (80.0-96.0); MONO # 0.7 10^3/uL (0.0-0.8); MONO % 3.5 % (2.0-8.0); NEUTROPHILS # 19.1 10^3/uL (1.5-8.5); NEUTROPHILS % 92.8 % (36.0-66.0); PLATELET COUNT, AUTOMATED 230 10^3/uL (150-450); RED BLOOD COUNT 4.47 10^6/uL (4.00-5.40); WHITE BLOOD COUNT 20.6 10^3/uL (4.0-10.0)
[2022-01-27 18:57] LABS: ALBUMIN 3.2 GM/DL (3.2-5.2); BILIRUBIN,DIRECT 0.2 MG/DL (0.0-0.2); BILIRUBIN,TOTAL 0.4 MG/DL (0.2-1.0); CALCIUM LEVEL 8.6 MG/DL (8.8-10.2); CREATININE FOR GFR 1.08 MG/DL (0.55-1.30); GLOMERULAR FILTRATION RATE 52.7 (>39); POTASSIUM SERUM 3.3 MEQ/L (3.5-5.1); TOTAL PROTEIN 7.5 GM/DL (6.4-8.2)
[2022-01-27 19:06] LABS: C REACTIVE PROTEIN QUANTITATIV 5.39 MG/DL (0.00-0.30)
[2022-01-27] MEDS ORDERED: GLUCOSE 4GM CHEW TABLET PO PRN (21:30)
[2022-01-27] MEDS ORDERED: GLUCAGON INJ 1MG VIAL SC PRN (21:30)
[2022-01-27] MEDS ORDERED: DEXTROSE 50% 50 ML SYRINGE IV PRN (21:30)
[2022-01-27 21:58] LABS: HEMOGLOBIN A1c 6.3 %
[2022-01-27] MEDS ORDERED: NS 1,000 ML IV SCH (22:50)
[2022-01-27 22:55] VITALS: BP 101/60
[2022-01-27] MEDS ORDERED: VANCOMYCIN HCL 1,000 MG, VIAL MATE ADAPTER 1 EACH in NS 250 ML IV ONE (23:00)
[2022-01-27] MEDS ORDERED: POTASSIUM CHLORIDE 10MEQ SR TABLET PO ONE (23:00)
[2022-01-27] MEDS ORDERED: CRAN400C PO (23:12)
[2022-01-27] MEDS ORDERED: OXYB-54 PO (23:12)
[2022-01-27] MEDS ORDERED: SENN8.6T28 PO (23:12)
[2022-01-27] MEDS ORDERED: BACITAB PO (23:12)
[2022-01-27] MEDS ORDERED: HOME MED LIST COMPLETE! XX SCH (23:15)
[2022-01-27] MEDS ORDERED: LEVALBUTEROL HFA 45MCG/ACT 15 GM INHALER INH PRN (23:35)
[2022-01-27] MEDS: INSULIN LISPRO (NovoLOG) PER UNIT SC SCH (23:35)
[2022-01-27 23:58] LABS: VENOUS HCO3 22.3 MEQ/L (23.0-27.0); VENOUS O2 SATURATION 94.3 % (60.0-80.0); VENOUS PARTIAL PRESSURE CO2 36.7 mmHg (38.0-50.0); VENOUS PARTIAL PRESSURE O2 67.9 mmHg (30.0-50.0); VENOUS PH 7.401 UNITS (7.330-7.430); VENOUS STANDARD HCO3 22.7 MEQ/L; VENOUS TOTAL CO2 23.4 MEQ/L (24.0-28.0)
[2022-01-28] MEDS ORDERED: PILL CUTTER 1 EACH XX PRN (00:05)
[2022-01-28 00:23] LABS: HEMOGLOBIN A1c 6.3 %
[2022-01-28 00:30] LABS: FREE T4 1.21 NG/DL (0.76-1.46); THYROID STIMULATING HORMONE 1.29 uIU/ML (0.358-3.740)
[2022-01-28] MEDS: SIMVASTATIN 40 MG TAB PO SCH ×2 (00:32→21:15)
[2022-01-28] MEDS: ACETAMINOPHEN TAB 650MG DOSE (2X325MG) PO PRN ×2 (00:33→05:17)
[2022-01-28] MEDS: ENTACAPONE 200MG TABLET (COMTAN) PO SCH ×5 (00:43→21:14)
[2022-01-28] MEDS: PRAMIPEXOLE 1 MG TAB PO SCH ×4 (00:43→21:15)
[2022-01-28] MEDS ORDERED: VANCOMYCIN HCL 1,000 MG, VIAL MATE ADAPTER 1 EACH in NS 250 ML IV ONE (02:00)
[2022-01-28] MEDS ORDERED: NS 1,000 ML IV SCH (05:15)
[2022-01-28] MEDS: LEVOTHYROXINE 75MCG TABLET (0.075MG) PO SCH (05:15)
[2022-01-28 06:00] VITALS: BP 109/57
[2022-01-28 06:33] LABS: HEMATOCRIT 36.1 % (36.0-47.0); HEMOGLOBIN 11.8 g/dl (12.0-15.5); MEAN CORPUSCULAR HEMOGLOBIN 29.2 pg (27.0-33.0); MEAN CORPUSCULAR HGB CONC 32.7 g/dl (32.0-36.5); MEAN CORPUSCULAR VOLUME 89.4 fl (80.0-96.0); PLATELET COUNT, AUTOMATED 205 10^3/uL (150-450); RED BLOOD COUNT 4.04 10^6/uL (4.00-5.40)
[2022-01-28 07:18] LABS: BLOOD UREA NITROGEN 23 MG/DL (7-18); CALCIUM LEVEL 8.4 MG/DL (8.8-10.2); CARBON DIOXIDE LEVEL 22 MEQ/L (21-32); CHLORIDE LEVEL 110 MEQ/L (98-107); CREATININE FOR GFR 0.95 MG/DL (0.55-1.30); GLOMERULAR FILTRATION RATE > 60.0 (>39); GLUCOSE, FASTING 103 MG/DL (70-100); MAGNESIUM LEVEL 1.8 MG/DL (1.8-2.4); POTASSIUM SERUM 4.3 MEQ/L (3.5-5.1); SODIUM LEVEL 140 MEQ/L (136-145)
[2022-01-28] MEDS: ENOXAPARIN 40MG/0.4ML SYRINGE (J1650 PER 10MG) SC SCH (08:48)
[2022-01-28] MEDS: SINEMET 25-100 MG TAB PO SCH ×4 (08:49→21:15)
[2022-01-28] MEDS: allopurinoL 300 MG TAB PO SCH (08:49)
[2022-01-28] MEDS: PANTOPRAZOLE 40MG TAB (PROTONIX) PO SCH (08:49)
[2022-01-28] MEDS: INSULIN LISPRO (NovoLOG) PER UNIT SC SCH ×4 (08:49→20:38)
[2022-01-28] MEDS: CYANOCOBALAMIN 500 MCG TAB PO SCH (08:49)
[2022-01-28] MEDS: MIRALAX *UNIT DOSE* 17GM PACKET PO SCH (08:49)
[2022-01-28] MEDS: DOCUSATE SODIUM 100MG CAPSULE PO SCH ×2 (08:49→21:15)
[2022-01-28] MEDS: VITAMIN D 1,000 INTERNATIONAL UNITS TABLET PO SCH (08:49)
[2022-01-28] MEDS: LACTOBACILLUS ACIDOPHILUS CAP (BACID) PO SCH ×2 (08:50→21:15)
[2022-01-28] MEDS: SENNA 8.6 MG TAB (SENOKOT) PO SCH (08:50)
[2022-01-28] MEDS: VANCOMYCIN HCL 1,000 MG, VIAL MATE ADAPTER 1 EACH in NS 250 ML IV SCH (12:17)
[2022-01-28] MEDS: MULTIVITAMINS/MINERALS THERAP 1 TAB PO SCH (12:17)
[2022-01-28 14:00] VITALS: BP 116/66
[2022-01-28] MEDS ORDERED: FUROSEMIDE 100MG/10ML VIAL (J1940) IV ONE (14:15)
[2022-01-28] MEDS: ALBUTEROL SULFATE 2.5 MG/0.5 ML INH NEB SOLN NEB SCH (14:39)
[2022-01-28] MEDS ORDERED: PROHANCE 279.3MG/ML 5ML VIAL As Ordered ONE (17:56)
[2022-01-28] MEDS ORDERED: PROHANCE 279.3MG/ML 15ML VIAL As Ordered ONE (17:57)
[2022-01-28 20:15] VITALS: BP 110/62
[2022-01-29] MEDS: VANCOMYCIN HCL 1,000 MG, VIAL MATE ADAPTER 1 EACH in NS 250 ML IV SCH ×2 (00:29→11:59)
[2022-01-29] MEDS: ALBUTEROL SULFATE 2.5 MG/0.5 ML INH NEB SOLN NEB SCH ×3 (00:30→15:00)
[2022-01-29] MEDS ORDERED: LEVOTHYROXINE 88MCG TABLET (0.088 MG) PO SCH (06:00)
[2022-01-29] MEDS: INSULIN LISPRO (NovoLOG) PER UNIT SC SCH ×4 (07:30→21:00)
[2022-01-29 08:00] LABS: BASO # 0.1 10^3/uL (0.0-0.2); BASO % 0.5 % (0.0-1.0); EOS # 0.1 10^3/uL (0.0-0.5); EOS % 0.3 % (0.0-3.0); HEMATOCRIT 36.1 % (36.0-47.0); HEMOGLOBIN 11.8 g/dl (12.0-15.5); LYMPH # 1.9 10^3/uL (1.5-5.0); LYMPH % 9.6 % (24.0-44.0); MEAN CORPUSCULAR HEMOGLOBIN 29.1 pg (27.0-33.0); MEAN CORPUSCULAR HGB CONC 32.7 g/dl (32.0-36.5); MEAN CORPUSCULAR VOLUME 88.9 fl (80.0-96.0); MONO # 1.2 10^3/uL (0.0-0.8); MONO % 6.2 % (2.0-8.0); NEUTROPHILS # 16.4 10^3/uL (1.5-8.5); NEUTROPHILS % 82.9 % (36.0-66.0); PLATELET COUNT, AUTOMATED 207 10^3/uL (150-450); RED BLOOD COUNT 4.06 10^6/uL (4.00-5.40); WHITE BLOOD COUNT 19.7 10^3/uL (4.0-10.0)
[2022-01-29 08:23] LABS: C REACTIVE PROTEIN QUANTITATIV 25.5 MG/DL (0.00-0.30); CALCIUM LEVEL 8.3 MG/DL (8.8-10.2); GLOMERULAR FILTRATION RATE 57.5 (>39); POTASSIUM SERUM 3.6 MEQ/L (3.5-5.1)
[2022-01-29] MEDS: allopurinoL 300 MG TAB PO SCH (09:22)
[2022-01-29] MEDS: ENTACAPONE 200MG TABLET (COMTAN) PO SCH ×4 (09:22→21:44)
[2022-01-29] MEDS: SINEMET 25-100 MG TAB PO SCH ×4 (09:22→21:45)
[2022-01-29] MEDS: VITAMIN D 1,000 INTERNATIONAL UNITS TABLET PO SCH (09:22)
[2022-01-29] MEDS: FUROSEMIDE 100MG/10ML VIAL (J1940) IV SCH ×2 (09:23→17:06)
[2022-01-29] MEDS: CYANOCOBALAMIN 500 MCG TAB PO SCH (09:23)
[2022-01-29] MEDS: DOCUSATE SODIUM 100MG CAPSULE PO SCH ×2 (09:23→21:44)
[2022-01-29] MEDS: SENNA 8.6 MG TAB (SENOKOT) PO SCH ×2 (09:23→21:45)
[2022-01-29] MEDS: LACTOBACILLUS ACIDOPHILUS CAP (BACID) PO SCH ×2 (09:23→21:45)
[2022-01-29] MEDS: PANTOPRAZOLE 40MG TAB (PROTONIX) PO SCH (09:23)
[2022-01-29] MEDS: MIRALAX *UNIT DOSE* 17GM PACKET PO SCH (09:23)
[2022-01-29] MEDS: PRAMIPEXOLE 1 MG TAB PO SCH ×3 (09:23→21:45)
[2022-01-29] MEDS: ENOXAPARIN 40MG/0.4ML SYRINGE (J1650 PER 10MG) SC SCH (09:23)
[2022-01-29] MEDS: MULTIVITAMINS/MINERALS THERAP 1 TAB PO SCH (11:59)
[2022-01-29 14:00] VITALS: BP 136/77
[2022-01-29 20:05] VITALS: BP 111/69
[2022-01-29] MEDS: SIMVASTATIN 40 MG TAB PO SCH (21:45)
[2022-01-30] MEDS: VANCOMYCIN HCL 1,000 MG, VIAL MATE ADAPTER 1 EACH in NS 250 ML IV SCH (00:43)
[2022-01-30] MEDS: LEVOTHYROXINE 75MCG TABLET (0.075MG) PO SCH (05:26)
[2022-01-30 05:42] VITALS: BP 122/64
[2022-01-30 06:26] LABS: BASO # 0.1 10^3/uL (0.0-0.2); BASO % 0.9 % (0.0-1.0); EOS # 0.3 10^3/uL (0.0-0.5); EOS % 2.4 % (0.0-3.0); HEMATOCRIT 38.6 % (36.0-47.0); HEMOGLOBIN 12.4 g/dl (12.0-15.5); LYMPH # 2.2 10^3/uL (1.5-5.0); LYMPH % 18.2 % (24.0-44.0); MEAN CORPUSCULAR HEMOGLOBIN 28.4 pg (27.0-33.0); MEAN CORPUSCULAR HGB CONC 32.1 g/dl (32.0-36.5); MEAN CORPUSCULAR VOLUME 88.5 fl (80.0-96.0); MONO # 0.9 10^3/uL (0.0-0.8); MONO % 7.7 % (2.0-8.0); NEUTROPHILS # 8.5 10^3/uL (1.5-8.5); NEUTROPHILS % 70.4 % (36.0-66.0); PLATELET COUNT, AUTOMATED 221 10^3/uL (150-450); RED BLOOD COUNT 4.36 10^6/uL (4.00-5.40)
[2022-01-30 06:49] LABS: CALCIUM LEVEL 9.7 MG/DL (8.8-10.2); CREATININE FOR GFR 1.01 MG/DL (0.55-1.30); GLOMERULAR FILTRATION RATE 56.9 (>39); POTASSIUM SERUM 3.3 MEQ/L (3.5-5.1)
[2022-01-30] MEDS ORDERED: cefTRIAXone SOD 2 GM in D5W MINI-BAG PLUS 50 ML IV SCH (07:00)
[2022-01-30 07:20] LABS: C REACTIVE PROTEIN QUANTITATIV 17.3 MG/DL (0.00-0.30)
[2022-01-30] MEDS: ALBUTEROL SULFATE 2.5 MG/0.5 ML INH NEB SOLN NEB SCH ×2 (07:25)
[2022-01-30] MEDS: ENOXAPARIN 40MG/0.4ML SYRINGE (J1650 PER 10MG) SC SCH (08:01)
[2022-01-30] MEDS: FUROSEMIDE 100MG/10ML VIAL (J1940) IV SCH (08:01)
[2022-01-30] MEDS: MIRALAX *UNIT DOSE* 17GM PACKET PO SCH (08:02)
[2022-01-30] MEDS: LACTOBACILLUS ACIDOPHILUS CAP (BACID) PO SCH (08:02)
[2022-01-30] MEDS: ENTACAPONE 200MG TABLET (COMTAN) PO SCH ×2 (08:02→11:43)
[2022-01-30] MEDS: PRAMIPEXOLE 1 MG TAB PO SCH (08:02)
[2022-01-30] MEDS: DOCUSATE SODIUM 100MG CAPSULE PO SCH (08:02)
[2022-01-30] MEDS: INSULIN LISPRO (NovoLOG) PER UNIT SC SCH ×2 (08:02→11:43)
[2022-01-30] MEDS: VITAMIN D 1,000 INTERNATIONAL UNITS TABLET PO SCH (08:03)
[2022-01-30] MEDS: CYANOCOBALAMIN 500 MCG TAB PO SCH (08:03)
[2022-01-30] MEDS: PANTOPRAZOLE 40MG TAB (PROTONIX) PO SCH (08:03)
[2022-01-30] MEDS: SINEMET 25-100 MG TAB PO SCH ×2 (08:03→11:43)
[2022-01-30] MEDS: allopurinoL 300 MG TAB PO SCH (08:04)
[2022-01-30] MEDS: SENNA 8.6 MG TAB (SENOKOT) PO SCH (08:04)
[2022-01-30] MEDS ORDERED: POTASSIUM CHLORIDE 10MEQ SR TABLET PO SCH (09:00)
[2022-01-30] MEDS ORDERED: POTA-151 PO (10:57)
[2022-01-30] MEDS ORDERED: TORS20TA2 PO (10:57)
[2022-01-30] MEDS ORDERED: CEFD300C41 PO (10:57)
[2022-01-30] MEDS: MULTIVITAMINS/MINERALS THERAP 1 TAB PO SCH (11:43)
== END 2022-01-30 13:45 | DRG 872 ==
LOC: EDBD 17:21 → M ED 17:21 → M ED INP 21:29 → ENRESERV 22:09 → M MSPAV 22:58
PROVIDERS: ADMIT Internal Medicine; ATTEND Internal Medicine Nephrology
DX: A41.9 Sepsis, unspecified organism (principal); L97.518 Non-pressure chronic ulcer of other part of right foot with other specified severity; L03.115 Cellulitis of right lower limb; E11.621 Type 2 diabetes mellitus with foot ulcer; I10 Essential (primary) hypertension; G20 Parkinson's disease; E03.9 Hypothyroidism, unspecified; G47.33 Obstructive sleep apnea (adult) (pediatric); E66.01 Morbid (severe) obesity due to excess calories; K59.09 Other constipation; J45.909 Unspecified asthma, uncomplicated; K21.9 Gastro-esophageal reflux disease without esophagitis; Z66 Do not resuscitate; M10.9 Gout, unspecified; Z98.49 Cataract extraction status, unspecified eye; K57.90 Diverticulosis of intestine, part unspecified, without perforation or abscess without bleeding; Z79.899 Other long term (current) drug therapy; Z88.8 Allergy status to other drugs, medicaments and biological substances

== ENCOUNTER 2022-01-30 10:42 | Inpatient (IN) | payer MEDICARE, OTHER ==
[~2022-01-30] VITALS: Ht 170.2 cm; Wt 113.0 kg
[~2022-01-30 10:42] MED LIST changes: +BACITAB PO; +CRAN400C PO; +OXYB-54 PO; +SENN8.6T28 PO
[2022-01-30] MEDS ORDERED: TORS20TA2 PO (10:57)
[2022-01-30] MEDS ORDERED: CEFD300C41 PO (10:57)
[2022-01-30] MEDS ORDERED: POTA-151 PO (10:57)
[2022-01-30] MEDS ORDERED: DEXTROSE 50% 50 ML SYRINGE IV PRN (11:15)
[2022-01-30] MEDS ORDERED: GLUCOSE 4GM CHEW TABLET PO PRN (11:15)
[2022-01-30] MEDS ORDERED: SENNA 8.6 MG TAB (SENOKOT) PO PRN (11:15)
[2022-01-30] MEDS ORDERED: DOCUSATE SODIUM 100MG CAPSULE PO PRN (11:15)
[2022-01-30] MEDS ORDERED: GLUCAGON INJ 1MG VIAL SC PRN (11:15)
[2022-01-30 13:50] VITALS: BP 138/78
[2022-01-30] MEDS ORDERED: PILL CUTTER 1 EACH XX PRN (14:55)
[2022-01-30] MEDS: COMBIVENT RESPIMAT 100-20MCG INHALER 4GM INH SCH ×2 (15:09→20:40)
[2022-01-30] MEDS ORDERED: LOPERAMIDE 2 MG CAPLET PO PRN (16:25)
[2022-01-30] MEDS: REMEDY PHYTOPLEX Z-GUARD PASTE 113GM TUBE (FROM STOREROOM PRODUCT) TOP SCH ×2 (16:55→20:09)
[2022-01-30] MEDS ORDERED: SINEMET 25-100 MG TAB PO SCH (17:00)
[2022-01-30] MEDS ORDERED: ENTACAPONE 200MG TABLET (COMTAN) PO SCH (17:00)
[2022-01-30] MEDS: LACTOBACILLUS ACIDOPHILUS CAP (BACID) PO SCH ×2 (17:24→20:07)
[2022-01-30] MEDS: PRAMIPEXOLE 1 MG TAB PO SCH ×2 (17:24→20:07)
[2022-01-30] MEDS: ENTACAPONE 200MG TABLET (COMTAN) PO SCH (17:24)
[2022-01-30] MEDS: SINEMET 25-100 MG TAB PO SCH (17:25)
[2022-01-30] MEDS: TORSEMIDE 20 MG TAB PO SCH (17:25)
[2022-01-30] MEDS: INSULIN LISPRO (NovoLOG) PER UNIT SC SCH ×2 (17:26→20:08)
[2022-01-30 20:00] VITALS: BP 134/72
[2022-01-30] MEDS: SIMVASTATIN 40 MG TAB PO SCH (20:07)
[2022-01-30] MEDS: CEFDINIR 300 MG CAP (OMNICEF) PO SCH (20:07)
[2022-01-30] MEDS: ACETAMINOPHEN TAB 650MG DOSE (2X325MG) PO PRN (20:08)
[2022-01-31 06:00] VITALS: BP 114/62
[2022-01-31] MEDS: LEVOTHYROXINE 88MCG TABLET (0.088 MG) PO SCH (06:13)
[2022-01-31] MEDS: ENTACAPONE 200MG TABLET (COMTAN) PO SCH ×4 (06:58→18:41)
[2022-01-31] MEDS: SINEMET 25-100 MG TAB PO SCH ×4 (06:58→18:28)
[2022-01-31] MEDS: COMBIVENT RESPIMAT 100-20MCG INHALER 4GM INH SCH ×3 (07:11→20:05)
[2022-01-31 07:37] LABS: BASO # 0.1 10^3/uL (0.0-0.2); BASO % 0.9 % (0.0-1.0); EOS # 0.4 10^3/uL (0.0-0.5); EOS % 3.4 % (0.0-3.0); HEMATOCRIT 42.1 % (36.0-47.0); HEMOGLOBIN 13.8 g/dl (12.0-15.5); LYMPH # 2.2 10^3/uL (1.5-5.0); LYMPH % 18.4 % (24.0-44.0); MEAN CORPUSCULAR HEMOGLOBIN 28.9 pg (27.0-33.0); MEAN CORPUSCULAR HGB CONC 32.8 g/dl (32.0-36.5); MEAN CORPUSCULAR VOLUME 88.1 fl (80.0-96.0); MONO # 0.9 10^3/uL (0.0-0.8); MONO % 7.9 % (2.0-8.0); NEUTROPHILS # 8.1 10^3/uL (1.5-8.5); NEUTROPHILS % 68.6 % (36.0-66.0); PLATELET COUNT, AUTOMATED 276 10^3/uL (150-450); RED BLOOD COUNT 4.78 10^6/uL (4.00-5.40); WHITE BLOOD COUNT 11.9 10^3/uL (4.0-10.0)
[2022-01-31] MEDS ORDERED: HOME MED LIST COMPLETE! XX SCH (08:00)
[2022-01-31 08:09] LABS: ALBUMIN 2.9 GM/DL (3.2-5.2); BILIRUBIN,TOTAL 0.5 MG/DL (0.2-1.0); CALCIUM LEVEL 9.7 MG/DL (8.8-10.2); CREATININE FOR GFR 1.07 MG/DL (0.55-1.30); GLOMERULAR FILTRATION RATE 53.2 (>39); POTASSIUM SERUM 3.6 MEQ/L (3.5-5.1); TOTAL PROTEIN 7.8 GM/DL (6.4-8.2)
[2022-01-31 08:52] VITALS: BP 120/70
[2022-01-31] MEDS: INSULIN LISPRO (NovoLOG) PER UNIT SC SCH ×4 (08:53→20:01)
[2022-01-31] MEDS: CEFDINIR 300 MG CAP (OMNICEF) PO SCH ×2 (08:53→20:19)
[2022-01-31] MEDS: ENOXAPARIN 40MG/0.4ML SYRINGE (J1650 PER 10MG) SC SCH (08:54)
[2022-01-31] MEDS: PRAMIPEXOLE 1 MG TAB PO SCH ×3 (08:54→20:19)
[2022-01-31] MEDS: allopurinoL 300 MG TAB PO SCH (08:54)
[2022-01-31] MEDS: PANTOPRAZOLE 40MG TAB (PROTONIX) PO SCH (08:54)
[2022-01-31] MEDS: LACTOBACILLUS ACIDOPHILUS CAP (BACID) PO SCH ×4 (08:54→20:19)
[2022-01-31] MEDS: TORSEMIDE 20 MG TAB PO SCH ×2 (08:54→17:18)
[2022-01-31] MEDS: TOLTERODINE TARTRATE 2 MG LA CAP (DETROL LA) PO SCH (08:54)
[2022-01-31] MEDS: REMEDY PHYTOPLEX Z-GUARD PASTE 113GM TUBE (FROM STOREROOM PRODUCT) TOP SCH ×3 (08:54→20:22)
[2022-01-31] MEDS: VITAMIN D 1,000 INTERNATIONAL UNITS TABLET PO SCH (08:54)
[2022-01-31] MEDS: CYANOCOBALAMIN 500 MCG TAB PO SCH (08:54)
[2022-01-31] MEDS: POTASSIUM CHLORIDE 10MEQ SR TABLET PO SCH (08:54)
[2022-01-31] MEDS ORDERED: MIRALAX *UNIT DOSE* 17GM PACKET PO PRN (09:00)
[2022-01-31] MEDS ORDERED: oxyBUTYnin *DITROPAN XL* 5 MG TABCR PO SCH (09:00)
[2022-01-31] MEDS ORDERED: MIRALAX *UNIT DOSE* 17GM PACKET PO SCH (09:00)
[2022-01-31] MEDS: MULTIVITAMINS/MINERALS THERAP 1 TAB PO SCH (12:06)
[2022-01-31 14:00] VITALS: BP 130/73
[2022-01-31 20:00] VITALS: BP 118/70
[2022-01-31] MEDS: SIMVASTATIN 40 MG TAB PO SCH (20:19)
[2022-01-31] MEDS: ACETAMINOPHEN TAB 650MG DOSE (2X325MG) PO PRN (20:40)
[2022-02-01] MEDS: LEVOTHYROXINE 75MCG TABLET (0.075MG) PO SCH (05:53)
[2022-02-01 06:00] VITALS: BP 124/72
[2022-02-01] MEDS: ENTACAPONE 200MG TABLET (COMTAN) PO SCH ×4 (06:49→18:03)
[2022-02-01] MEDS: SINEMET 25-100 MG TAB PO SCH ×4 (06:50→18:04)
[2022-02-01] MEDS: COMBIVENT RESPIMAT 100-20MCG INHALER 4GM INH SCH ×3 (07:41→20:40)
[2022-02-01] MEDS: allopurinoL 300 MG TAB PO SCH (08:10)
[2022-02-01] MEDS: VITAMIN D 1,000 INTERNATIONAL UNITS TABLET PO SCH (08:10)
[2022-02-01] MEDS: INSULIN LISPRO (NovoLOG) PER UNIT SC SCH ×4 (08:10→20:36)
[2022-02-01] MEDS: PANTOPRAZOLE 40MG TAB (PROTONIX) PO SCH (08:10)
[2022-02-01] MEDS: POTASSIUM CHLORIDE 10MEQ SR TABLET PO SCH (08:11)
[2022-02-01] MEDS: TORSEMIDE 20 MG TAB PO SCH ×2 (08:11→16:44)
[2022-02-01] MEDS: LACTOBACILLUS ACIDOPHILUS CAP (BACID) PO SCH ×4 (08:11→20:36)
[2022-02-01] MEDS: CYANOCOBALAMIN 500 MCG TAB PO SCH (08:11)
[2022-02-01] MEDS: TOLTERODINE TARTRATE 2 MG LA CAP (DETROL LA) PO SCH (08:11)
[2022-02-01] MEDS: CEFDINIR 300 MG CAP (OMNICEF) PO SCH ×2 (08:11→20:36)
[2022-02-01] MEDS: PRAMIPEXOLE 1 MG TAB PO SCH ×3 (08:11→20:36)
[2022-02-01] MEDS: ENOXAPARIN 40MG/0.4ML SYRINGE (J1650 PER 10MG) SC SCH (08:12)
[2022-02-01] MEDS: REMEDY PHYTOPLEX Z-GUARD PASTE 113GM TUBE (FROM STOREROOM PRODUCT) TOP SCH ×3 (08:12→20:37)
[2022-02-01] MEDS: MULTIVITAMINS/MINERALS THERAP 1 TAB PO SCH (10:35)
[2022-02-01 14:00] VITALS: BP 137/77
[2022-02-01 20:06] VITALS: BP 116/68
[2022-02-01] MEDS: ACETAMINOPHEN TAB 650MG DOSE (2X325MG) PO PRN (20:36)
[2022-02-01] MEDS: SIMVASTATIN 40 MG TAB PO SCH (20:36)
[2022-02-02] MEDS: LEVOTHYROXINE 88MCG TABLET (0.088 MG) PO SCH (05:11)
[2022-02-02 06:00] VITALS: BP 118/72
[2022-02-02 06:52] LABS: BASO # 0.2 10^3/uL (0.0-0.2); BASO % 1.2 % (0.0-1.0); EOS # 0.6 10^3/uL (0.0-0.5); HEMATOCRIT 40.6 % (36.0-47.0); HEMOGLOBIN 13.4 g/dl (12.0-15.5); LYMPH # 3.2 10^3/uL (1.5-5.0); LYMPH % 22.9 % (24.0-44.0); MEAN CORPUSCULAR HEMOGLOBIN 29.4 pg (27.0-33.0); MONO # 1.1 10^3/uL (0.0-0.8); MONO % 8.3 % (2.0-8.0); NEUTROPHILS # 8.3 10^3/uL (1.5-8.5); PLATELET COUNT, AUTOMATED 313 10^3/uL (150-450); RED BLOOD COUNT 4.56 10^6/uL (4.00-5.40); WHITE BLOOD COUNT 13.8 10^3/uL (4.0-10.0)
[2022-02-02 07:14] LABS: CREATININE FOR GFR 1.16 MG/DL (0.55-1.30); GLOMERULAR FILTRATION RATE 48.5 (>39); POTASSIUM SERUM 3.2 MEQ/L (3.5-5.1)
[2022-02-02 07:15] LABS: CALCIUM LEVEL 9.5 MG/DL (8.8-10.2)
[2022-02-02] MEDS: COMBIVENT RESPIMAT 100-20MCG INHALER 4GM INH SCH ×3 (07:35→20:10)
[2022-02-02] MEDS: SINEMET 25-100 MG TAB PO SCH ×4 (07:36→18:35)
[2022-02-02] MEDS: INSULIN LISPRO (NovoLOG) PER UNIT SC SCH ×4 (07:37→20:53)
[2022-02-02] MEDS: ENTACAPONE 200MG TABLET (COMTAN) PO SCH ×4 (07:37→18:35)
[2022-02-02] MEDS: LACTOBACILLUS ACIDOPHILUS CAP (BACID) PO SCH ×4 (07:37→20:53)
[2022-02-02] MEDS: TOLTERODINE TARTRATE 2 MG LA CAP (DETROL LA) PO SCH (09:20)
[2022-02-02] MEDS: CEFDINIR 300 MG CAP (OMNICEF) PO SCH ×2 (09:20→20:53)
[2022-02-02] MEDS: PRAMIPEXOLE 1 MG TAB PO SCH ×3 (09:21→20:53)
[2022-02-02] MEDS: PANTOPRAZOLE 40MG TAB (PROTONIX) PO SCH (09:21)
[2022-02-02] MEDS: allopurinoL 300 MG TAB PO SCH (09:21)
[2022-02-02] MEDS: VITAMIN D 1,000 INTERNATIONAL UNITS TABLET PO SCH (09:21)
[2022-02-02] MEDS: POTASSIUM CHLORIDE 10MEQ SR TABLET PO SCH (09:21)
[2022-02-02] MEDS: TORSEMIDE 20 MG TAB PO SCH ×2 (09:21→16:05)
[2022-02-02] MEDS: CYANOCOBALAMIN 500 MCG TAB PO SCH (09:21)
[2022-02-02] MEDS: REMEDY PHYTOPLEX Z-GUARD PASTE 113GM TUBE (FROM STOREROOM PRODUCT) TOP SCH ×3 (09:22→20:54)
[2022-02-02] MEDS: ENOXAPARIN 40MG/0.4ML SYRINGE (J1650 PER 10MG) SC SCH (09:22)
[2022-02-02] MEDS ORDERED: POTASSIUM CHLORIDE 10MEQ SR TABLET PO ONE ×2 (11:30→17:00)
[2022-02-02 12:07] LABS: MAGNESIUM LEVEL 2.1 MG/DL (1.8-2.4)
[2022-02-02] MEDS: MULTIVITAMINS/MINERALS THERAP 1 TAB PO SCH (12:11)
[2022-02-02 14:00] VITALS: BP 140/78
[2022-02-02] MEDS: SIMVASTATIN 40 MG TAB PO SCH (20:53)
[2022-02-02 22:51] VITALS: BP 138/80
[2022-02-03 05:50] VITALS: BP 140/84
[2022-02-03] MEDS: LEVOTHYROXINE 75MCG TABLET (0.075MG) PO SCH (06:26)
[2022-02-03] MEDS: SINEMET 25-100 MG TAB PO SCH ×4 (06:26→18:35)
[2022-02-03] MEDS: ENTACAPONE 200MG TABLET (COMTAN) PO SCH ×4 (06:26→18:35)
[2022-02-03 07:05] LABS: BASO # 0.1 10^3/uL (0.0-0.2); BASO % 0.9 % (0.0-1.0); EOS # 0.5 10^3/uL (0.0-0.5); EOS % 3.2 % (0.0-3.0); HEMATOCRIT 42.9 % (36.0-47.0); HEMOGLOBIN 13.7 g/dl (12.0-15.5); LYMPH # 3.2 10^3/uL (1.5-5.0); MEAN CORPUSCULAR HEMOGLOBIN 28.5 pg (27.0-33.0); MEAN CORPUSCULAR HGB CONC 31.9 g/dl (32.0-36.5); MEAN CORPUSCULAR VOLUME 89.4 fl (80.0-96.0); MONO # 1.1 10^3/uL (0.0-0.8); MONO % 7.1 % (2.0-8.0); NEUTROPHILS # 9.8 10^3/uL (1.5-8.5); NEUTROPHILS % 64.1 % (36.0-66.0); PLATELET COUNT, AUTOMATED 335 10^3/uL (150-450); WHITE BLOOD COUNT 15.3 10^3/uL (4.0-10.0)
[2022-02-03 07:27] LABS: C REACTIVE PROTEIN QUANTITATIV 2.45 MG/DL (0.00-0.30); CALCIUM LEVEL 9.8 MG/DL (8.8-10.2); CREATININE FOR GFR 1.22 MG/DL (0.55-1.30); GLOMERULAR FILTRATION RATE 45.7 (>39)
[2022-02-03 07:39] LABS: ERYTHROCYTE SEDIMENTATION RATE 54 mm/hr (0-30)
[2022-02-03] MEDS: COMBIVENT RESPIMAT 100-20MCG INHALER 4GM INH SCH ×3 (08:00→20:47)
[2022-02-03] MEDS: INSULIN LISPRO (NovoLOG) PER UNIT SC SCH ×4 (09:16→20:15)
[2022-02-03] MEDS: LACTOBACILLUS ACIDOPHILUS CAP (BACID) PO SCH ×4 (09:16→20:15)
[2022-02-03] MEDS: ENOXAPARIN 40MG/0.4ML SYRINGE (J1650 PER 10MG) SC SCH (09:22)
[2022-02-03] MEDS: REMEDY PHYTOPLEX Z-GUARD PASTE 113GM TUBE (FROM STOREROOM PRODUCT) TOP SCH ×3 (09:23→20:16)
[2022-02-03] MEDS: CEFDINIR 300 MG CAP (OMNICEF) PO SCH ×2 (09:46→20:15)
[2022-02-03] MEDS: PRAMIPEXOLE 1 MG TAB PO SCH ×3 (09:47→20:15)
[2022-02-03] MEDS: TORSEMIDE 20 MG TAB PO SCH ×2 (09:47→17:08)
[2022-02-03] MEDS: TOLTERODINE TARTRATE 2 MG LA CAP (DETROL LA) PO SCH (09:47)
[2022-02-03] MEDS: PANTOPRAZOLE 40MG TAB (PROTONIX) PO SCH (09:47)
[2022-02-03] MEDS: POTASSIUM CHLORIDE 10MEQ SR TABLET PO SCH (09:48)
[2022-02-03] MEDS: CYANOCOBALAMIN 500 MCG TAB PO SCH (09:49)
[2022-02-03] MEDS: allopurinoL 300 MG TAB PO SCH (09:49)
[2022-02-03] MEDS: VITAMIN D 1,000 INTERNATIONAL UNITS TABLET PO SCH (09:49)
[2022-02-03] MEDS: MULTIVITAMINS/MINERALS THERAP 1 TAB PO SCH (10:50)
[2022-02-03] MEDS: ACETAMINOPHEN TAB 650MG DOSE (2X325MG) PO PRN (10:50)
[2022-02-03 14:00] VITALS: BP 132/82
[2022-02-03 20:00] VITALS: BP 136/86
[2022-02-03] MEDS: SIMVASTATIN 40 MG TAB PO SCH (20:15)
[2022-02-04 05:00] VITALS: BP 134/86
[2022-02-04] MEDS: ENTACAPONE 200MG TABLET (COMTAN) PO SCH ×4 (06:26→18:08)
[2022-02-04] MEDS: LEVOTHYROXINE 88MCG TABLET (0.088 MG) PO SCH (06:26)
[2022-02-04] MEDS: SINEMET 25-100 MG TAB PO SCH ×4 (06:26→18:08)
[2022-02-04 06:57] LABS: BASO # 0.2 10^3/uL (0.0-0.2); BASO % 1.1 % (0.0-1.0); EOS # 0.4 10^3/uL (0.0-0.5); EOS % 3.2 % (0.0-3.0); HEMATOCRIT 40.4 % (36.0-47.0); HEMOGLOBIN 12.8 g/dl (12.0-15.5); LYMPH # 3.1 10^3/uL (1.5-5.0); LYMPH % 22.8 % (24.0-44.0); MEAN CORPUSCULAR HEMOGLOBIN 28.3 pg (27.0-33.0); MEAN CORPUSCULAR HGB CONC 31.7 g/dl (32.0-36.5); MEAN CORPUSCULAR VOLUME 89.4 fl (80.0-96.0); MONO % 7.2 % (2.0-8.0); NEUTROPHILS # 8.5 10^3/uL (1.5-8.5); NEUTROPHILS % 62.9 % (36.0-66.0); PLATELET COUNT, AUTOMATED 327 10^3/uL (150-450); RED BLOOD COUNT 4.52 10^6/uL (4.00-5.40); WHITE BLOOD COUNT 13.5 10^3/uL (4.0-10.0)
[2022-02-04] MEDS: TORSEMIDE 20 MG TAB PO SCH ×2 (07:12→18:08)
[2022-02-04] MEDS: PRAMIPEXOLE 1 MG TAB PO SCH ×3 (07:12→20:54)
[2022-02-04] MEDS: POTASSIUM CHLORIDE 10MEQ SR TABLET PO SCH (07:12)
[2022-02-04] MEDS: VITAMIN D 1,000 INTERNATIONAL UNITS TABLET PO SCH (07:13)
[2022-02-04] MEDS: LACTOBACILLUS ACIDOPHILUS CAP (BACID) PO SCH ×4 (07:13→20:54)
[2022-02-04] MEDS: TOLTERODINE TARTRATE 2 MG LA CAP (DETROL LA) PO SCH (07:13)
[2022-02-04] MEDS: INSULIN LISPRO (NovoLOG) PER UNIT SC SCH ×2 (07:13→11:40)
[2022-02-04] MEDS: CYANOCOBALAMIN 500 MCG TAB PO SCH (07:13)
[2022-02-04] MEDS: allopurinoL 300 MG TAB PO SCH (07:13)
[2022-02-04] MEDS: CEFDINIR 300 MG CAP (OMNICEF) PO SCH ×2 (07:13→20:54)
[2022-02-04] MEDS: PANTOPRAZOLE 40MG TAB (PROTONIX) PO SCH (07:13)
[2022-02-04] MEDS: ENOXAPARIN 40MG/0.4ML SYRINGE (J1650 PER 10MG) SC SCH (07:14)
[2022-02-04] MEDS: REMEDY PHYTOPLEX Z-GUARD PASTE 113GM TUBE (FROM STOREROOM PRODUCT) TOP SCH ×3 (07:14→20:55)
[2022-02-04 07:20] LABS: CALCIUM LEVEL 8.9 MG/DL (8.8-10.2); CREATININE FOR GFR 1.18 MG/DL (0.55-1.30); GLOMERULAR FILTRATION RATE 47.5 (>39); POTASSIUM SERUM 3.6 MEQ/L (3.5-5.1)
[2022-02-04] MEDS: COMBIVENT RESPIMAT 100-20MCG INHALER 4GM INH SCH ×3 (07:31→19:56)
[2022-02-04] MEDS: MULTIVITAMINS/MINERALS THERAP 1 TAB PO SCH (11:40)
[2022-02-04 14:00] VITALS: BP 141/77
[2022-02-04 20:00] VITALS: BP 141/78
[2022-02-04] MEDS: SIMVASTATIN 40 MG TAB PO SCH (20:54)
[2022-02-05] MEDS: LEVOTHYROXINE 75MCG TABLET (0.075MG) PO SCH (05:30)
[2022-02-05 05:52] VITALS: BP 122/80
[2022-02-05 06:25] LABS: CALCIUM LEVEL 9.9 MG/DL (8.8-10.2); CREATININE FOR GFR 1.24 MG/DL (0.55-1.30); GLOMERULAR FILTRATION RATE 44.9 (>39); POTASSIUM SERUM 3.4 MEQ/L (3.5-5.1)
[2022-02-05] MEDS: ENTACAPONE 200MG TABLET (COMTAN) PO SCH ×4 (06:59→18:06)
[2022-02-05] MEDS: SINEMET 25-100 MG TAB PO SCH ×4 (06:59→18:06)
[2022-02-05] MEDS: PRAMIPEXOLE 1 MG TAB PO SCH ×3 (07:15→20:35)
[2022-02-05] MEDS: ENOXAPARIN 40MG/0.4ML SYRINGE (J1650 PER 10MG) SC SCH (07:15)
[2022-02-05] MEDS: VITAMIN D 1,000 INTERNATIONAL UNITS TABLET PO SCH (07:15)
[2022-02-05] MEDS: TORSEMIDE 20 MG TAB PO SCH (07:15)
[2022-02-05] MEDS: CEFDINIR 300 MG CAP (OMNICEF) PO SCH ×2 (07:15→20:35)
[2022-02-05] MEDS: CYANOCOBALAMIN 500 MCG TAB PO SCH (07:15)
[2022-02-05] MEDS: LACTOBACILLUS ACIDOPHILUS CAP (BACID) PO SCH ×4 (07:15→20:35)
[2022-02-05] MEDS: PANTOPRAZOLE 40MG TAB (PROTONIX) PO SCH (07:15)
[2022-02-05] MEDS: allopurinoL 300 MG TAB PO SCH (07:15)
[2022-02-05] MEDS: POTASSIUM CHLORIDE 10MEQ SR TABLET PO SCH ×2 (07:16→20:36)
[2022-02-05] MEDS: TOLTERODINE TARTRATE 2 MG LA CAP (DETROL LA) PO SCH (07:16)
[2022-02-05] MEDS: REMEDY PHYTOPLEX Z-GUARD PASTE 113GM TUBE (FROM STOREROOM PRODUCT) TOP SCH ×3 (07:16→20:36)
[2022-02-05] MEDS: COMBIVENT RESPIMAT 100-20MCG INHALER 4GM INH SCH ×3 (07:17→20:03)
[2022-02-05] MEDS: MULTIVITAMINS/MINERALS THERAP 1 TAB PO SCH (11:34)
[2022-02-05 14:00] VITALS: BP 120/78
[2022-02-05 19:37] VITALS: BP 124/78
[2022-02-05] MEDS: SIMVASTATIN 40 MG TAB PO SCH (20:35)
[2022-02-06] MEDS: LEVOTHYROXINE 88MCG TABLET (0.088 MG) PO SCH (05:25)
[2022-02-06 05:34] VITALS: BP 126/70
[2022-02-06 06:20] LABS: BASO # 0.1 10^3/uL (0.0-0.2); BASO % 0.6 % (0.0-1.0); EOS # 0.2 10^3/uL (0.0-0.5); EOS % 1.1 % (0.0-3.0); HEMATOCRIT 40.7 % (36.0-47.0); LYMPH # 2.4 10^3/uL (1.5-5.0); LYMPH % 12.5 % (24.0-44.0); MEAN CORPUSCULAR HEMOGLOBIN 28.8 pg (27.0-33.0); MEAN CORPUSCULAR HGB CONC 31.9 g/dl (32.0-36.5); MEAN CORPUSCULAR VOLUME 90.2 fl (80.0-96.0); MONO # 1.2 10^3/uL (0.0-0.8); NEUTROPHILS # 15.3 10^3/uL (1.5-8.5); PLATELET COUNT, AUTOMATED 352 10^3/uL (150-450); RED BLOOD COUNT 4.51 10^6/uL (4.00-5.40); WHITE BLOOD COUNT 19.4 10^3/uL (4.0-10.0)
[2022-02-06 06:40] LABS: CALCIUM LEVEL 9.5 MG/DL (8.8-10.2); CREATININE FOR GFR 1.16 MG/DL (0.55-1.30); GLOMERULAR FILTRATION RATE 48.5 (>39); POTASSIUM SERUM 4.4 MEQ/L (3.5-5.1)
[2022-02-06] MEDS: ENTACAPONE 200MG TABLET (COMTAN) PO SCH ×4 (06:49→18:35)
[2022-02-06] MEDS: SINEMET 25-100 MG TAB PO SCH ×4 (06:49→18:35)
[2022-02-06] MEDS: COMBIVENT RESPIMAT 100-20MCG INHALER 4GM INH SCH ×3 (07:23→20:25)
[2022-02-06] MEDS: LACTOBACILLUS ACIDOPHILUS CAP (BACID) PO SCH ×4 (08:00→20:36)
[2022-02-06] MEDS: REMEDY PHYTOPLEX Z-GUARD PASTE 113GM TUBE (FROM STOREROOM PRODUCT) TOP SCH ×3 (09:00→20:37)
[2022-02-06] MEDS: MULTIVITAMINS/MINERALS THERAP 1 TAB PO SCH (10:36)
[2022-02-06] MEDS: CEFDINIR 300 MG CAP (OMNICEF) PO SCH (10:37)
[2022-02-06] MEDS: ENOXAPARIN 40MG/0.4ML SYRINGE (J1650 PER 10MG) SC SCH (10:37)
[2022-02-06] MEDS: allopurinoL 300 MG TAB PO SCH (10:37)
[2022-02-06] MEDS: PANTOPRAZOLE 40MG TAB (PROTONIX) PO SCH (10:38)
[2022-02-06] MEDS: TORSEMIDE 20 MG TAB PO SCH (10:38)
[2022-02-06] MEDS: POTASSIUM CHLORIDE 10MEQ SR TABLET PO SCH ×2 (10:38→20:37)
[2022-02-06] MEDS: CYANOCOBALAMIN 500 MCG TAB PO SCH (10:38)
[2022-02-06] MEDS: VITAMIN D 1,000 INTERNATIONAL UNITS TABLET PO SCH (10:39)
[2022-02-06] MEDS: PRAMIPEXOLE 1 MG TAB PO SCH ×3 (10:47→20:36)
[2022-02-06] MEDS ORDERED: FLEET ENEMA PR PRN (11:05)
[2022-02-06] MEDS ORDERED: ISOVUE-370 76% 100ML VIAL As Ordered ONE (13:23)
[2022-02-06 13:58] LABS: C REACTIVE PROTEIN QUANTITATIV 2.99 MG/DL (0.00-0.30); URIC ACID 6.8 MG/DL (2.6-6.0)
[2022-02-06 14:00] VITALS: BP 122/76
[2022-02-06] MEDS: SIMVASTATIN 40 MG TAB PO SCH (20:36)
[2022-02-06] MEDS ORDERED: SENNA 8.6 MG TAB (SENOKOT) PO SCH (21:00)
[2022-02-06 22:00] VITALS: BP 118/70
[2022-02-07 06:00] VITALS: BP 134/72
[2022-02-07] MEDS: ENTACAPONE 200MG TABLET (COMTAN) PO SCH ×4 (06:12→18:47)
[2022-02-07] MEDS: SINEMET 25-100 MG TAB PO SCH ×4 (06:13→18:47)
[2022-02-07] MEDS: LEVOTHYROXINE 75MCG TABLET (0.075MG) PO SCH (06:13)
[2022-02-07] MEDS: ACETAMINOPHEN TAB 650MG DOSE (2X325MG) PO PRN ×2 (06:27→18:52)
[2022-02-07] MEDS: COMBIVENT RESPIMAT 100-20MCG INHALER 4GM INH SCH ×3 (07:30→20:21)
[2022-02-07 07:49] LABS: CALCIUM LEVEL 9.6 MG/DL (8.8-10.2); CREATININE FOR GFR 1.26 MG/DL (0.55-1.30); GLOMERULAR FILTRATION RATE 44.1 (>39); POTASSIUM SERUM 4.4 MEQ/L (3.5-5.1); URIC ACID 6.3 MG/DL (2.6-6.0)
[2022-02-07] MEDS: ENOXAPARIN 40MG/0.4ML SYRINGE (J1650 PER 10MG) SC SCH (08:57)
[2022-02-07] MEDS: LACTOBACILLUS ACIDOPHILUS CAP (BACID) PO SCH ×4 (08:58→20:06)
[2022-02-07] MEDS: allopurinoL 300 MG TAB PO SCH (08:58)
[2022-02-07] MEDS: VITAMIN D 1,000 INTERNATIONAL UNITS TABLET PO SCH (08:58)
[2022-02-07] MEDS: PANTOPRAZOLE 40MG TAB (PROTONIX) PO SCH (08:58)
[2022-02-07] MEDS: MIRALAX *UNIT DOSE* 17GM PACKET PO SCH (08:58)
[2022-02-07] MEDS: TORSEMIDE 20 MG TAB PO SCH (08:58)
[2022-02-07] MEDS: REMEDY PHYTOPLEX Z-GUARD PASTE 113GM TUBE (FROM STOREROOM PRODUCT) TOP SCH ×3 (08:59→20:04)
[2022-02-07] MEDS: POTASSIUM CHLORIDE 10MEQ SR TABLET PO SCH ×2 (08:59→20:04)
[2022-02-07] MEDS: CYANOCOBALAMIN 500 MCG TAB PO SCH (08:59)
[2022-02-07] MEDS: PRAMIPEXOLE 1 MG TAB PO SCH ×3 (08:59→20:03)
[2022-02-07] MEDS ORDERED: FLEET ENEMA PR ONE (09:40)
[2022-02-07 09:59] LABS: BASO # 0.1 10^3/uL (0.0-0.2); BASO % 0.5 % (0.0-1.0); EOS # 0.1 10^3/uL (0.0-0.5); EOS % 0.4 % (0.0-3.0); HEMOGLOBIN 13.9 g/dl (12.0-15.5); LYMPH # 2.2 10^3/uL (1.5-5.0); LYMPH % 7.9 % (24.0-44.0); MEAN CORPUSCULAR HEMOGLOBIN 28.8 pg (27.0-33.0); MEAN CORPUSCULAR HGB CONC 32.3 g/dl (32.0-36.5); MONO # 1.4 10^3/uL (0.0-0.8); MONO % 4.9 % (2.0-8.0); NEUTROPHILS # 23.7 10^3/uL (1.5-8.5); NEUTROPHILS % 85.3 % (36.0-66.0); PLATELET COUNT, AUTOMATED 363 10^3/uL (150-450); RED BLOOD COUNT 4.83 10^6/uL (4.00-5.40); WHITE BLOOD COUNT 27.8 10^3/uL (4.0-10.0)
[2022-02-07] MEDS: MULTIVITAMINS/MINERALS THERAP 1 TAB PO SCH (11:29)
[2022-02-07] MEDS ORDERED: MOM 30ML SUSPENSION UDC PO ONE (11:30)
[2022-02-07] MEDS: PIPERACILLIN/TAZOBACTAM SOD 4.5 GM in D5W MINI-BAG PLUS 50 ML IV SCH ×2 (12:14→19:42)
[2022-02-07] MEDS: SENOKOT S TAB PO SCH ×2 (12:15→20:03)
[2022-02-07] MEDS ORDERED: metroNIDAZOLE 500 MG in IV 1 EA IV SCH (13:00)
[2022-02-07] MEDS ORDERED: NS 500 ML IV ONE (14:00)
[2022-02-07] MEDS: LACTULOSE 20 GM/30 ML SYRUP UD PO SCH ×2 (14:24→20:04)
[2022-02-07] MEDS: VANCOMYCIN ORAL SOL 250MG/5ML ORAL SYRINGE PO SCH ×2 (14:24→20:04)
[2022-02-07 16:00] VITALS: BP 130/75
[2022-02-07 18:19] LABS: APPEARANCE, URINE HAZY (CLEAR); BACTERIA, URINE AUTO NEGATIVE (NEGATIVE); BILIRUBIN, URINE AUTO NEGATIVE (NEGATIVE); BLOOD, URINE BLOOD 3+ (NEGATIVE); COLOR, URINE AMBER (YELLOW); GLUCOSE, URINE (UA) AUTO 1+ mg/dL (NEGATIVE); KETONE, URINE AUTO TRACE mg/dL (NEGATIVE); LEUKOCYTE ESTERASE, URINE AUTO NEGATIVE (NEGATIVE); NITRITE, URINE AUTO NEGATIVE (NEGATIVE); PROTEIN, URINE AUTO 2+ mg/dL (NEGATIVE); RBC, URINE AUTO 114 /HPF (0-3); SPECIFIC GRAVITY URINE AUTO 1.015 (1.002-1.035); SQUAMOUS EPITHELIAL CELL UR AU 10 /HPF (0-6); UROBILINOGEN, URINE AUTO 0.2 mg/dL (0.0-2.0); WBC, URINE AUTO 3 /HPF (0-3)
[2022-02-07 19:30] VITALS: BP 139/79
[2022-02-07] MEDS: SIMVASTATIN 40 MG TAB PO SCH (20:04)
[2022-02-08] MEDS: PIPERACILLIN/TAZOBACTAM SOD 4.5 GM in D5W MINI-BAG PLUS 50 ML IV SCH ×3 (04:02→19:53)
[2022-02-08 05:27] VITALS: BP 130/80
[2022-02-08] MEDS: LEVOTHYROXINE 88MCG TABLET (0.088 MG) PO SCH (05:46)
[2022-02-08] MEDS: SINEMET 25-100 MG TAB PO SCH ×4 (05:46→18:27)
[2022-02-08] MEDS: ENTACAPONE 200MG TABLET (COMTAN) PO SCH ×4 (06:26→18:24)
[2022-02-08 06:47] LABS: BASO # 0.1 10^3/uL (0.0-0.2); BASO % 0.3 % (0.0-1.0); EOS # 0.1 10^3/uL (0.0-0.5); EOS % 0.2 % (0.0-3.0); HEMATOCRIT 38.6 % (36.0-47.0); HEMOGLOBIN 12.7 g/dl (12.0-15.5); LYMPH # 1.3 10^3/uL (1.5-5.0); LYMPH % 4.1 % (24.0-44.0); MEAN CORPUSCULAR HEMOGLOBIN 29.3 pg (27.0-33.0); MEAN CORPUSCULAR HGB CONC 32.9 g/dl (32.0-36.5); MEAN CORPUSCULAR VOLUME 89.1 fl (80.0-96.0); NEUTROPHILS # 29.1 10^3/uL (1.5-8.5); NEUTROPHILS % 89.4 % (36.0-66.0); PLATELET COUNT, AUTOMATED 312 10^3/uL (150-450); RED BLOOD COUNT 4.33 10^6/uL (4.00-5.40)
[2022-02-08 07:14] LABS: CALCIUM LEVEL 8.2 MG/DL (8.8-10.2); CREATININE FOR GFR 1.37 MG/DL (0.55-1.30); MAGNESIUM LEVEL 2.1 MG/DL (1.8-2.4); PHOSPHORUS LEVEL 2.6 MG/DL (2.5-4.9); POTASSIUM SERUM 4.1 MEQ/L (3.5-5.1)
[2022-02-08 07:18] LABS: MONO # 1.6 10^3/uL (0.0-0.8)
[2022-02-08 07:19] LABS: WHITE BLOOD COUNT 32.6 10^3/uL (4.0-10.0)
[2022-02-08] MEDS: COMBIVENT RESPIMAT 100-20MCG INHALER 4GM INH SCH ×3 (07:19→19:34)
[2022-02-08] MEDS: LACTOBACILLUS ACIDOPHILUS CAP (BACID) PO SCH ×4 (08:01→21:13)
[2022-02-08] MEDS: LACTULOSE 20 GM/30 ML SYRUP UD PO SCH ×2 (08:01→21:12)
[2022-02-08] MEDS: TORSEMIDE 20 MG TAB PO SCH (08:02)
[2022-02-08] MEDS: VANCOMYCIN ORAL SOL 250MG/5ML ORAL SYRINGE PO SCH (08:03)
[2022-02-08] MEDS: PANTOPRAZOLE 40MG TAB (PROTONIX) PO SCH (08:04)
[2022-02-08] MEDS: CYANOCOBALAMIN 500 MCG TAB PO SCH (08:04)
[2022-02-08] MEDS: MIRALAX *UNIT DOSE* 17GM PACKET PO SCH (08:04)
[2022-02-08] MEDS: PRAMIPEXOLE 1 MG TAB PO SCH ×3 (08:04→21:13)
[2022-02-08] MEDS: allopurinoL 300 MG TAB PO SCH (08:04)
[2022-02-08] MEDS: SENOKOT S TAB PO SCH ×2 (08:04→21:13)
[2022-02-08] MEDS: POTASSIUM CHLORIDE 10MEQ SR TABLET PO SCH ×2 (08:04→21:13)
[2022-02-08] MEDS: VITAMIN D 1,000 INTERNATIONAL UNITS TABLET PO SCH (08:04)
[2022-02-08] MEDS: REMEDY PHYTOPLEX Z-GUARD PASTE 113GM TUBE (FROM STOREROOM PRODUCT) TOP SCH ×3 (08:05→21:13)
[2022-02-08] MEDS: ENOXAPARIN 40MG/0.4ML SYRINGE (J1650 PER 10MG) SC SCH (08:05)
[2022-02-08] MEDS ORDERED: ONDANSETRON 4MG 2ML VIAL IV ONE (10:00)
[2022-02-08] MEDS: NS 1,000 ML IV SCH (10:11)
[2022-02-08] MEDS: MULTIVITAMINS/MINERALS THERAP 1 TAB PO SCH (11:42)
[2022-02-08 14:00] VITALS: BP 145/85
[2022-02-08 19:28] VITALS: BP 130/68
[2022-02-08] MEDS: SIMVASTATIN 40 MG TAB PO SCH (21:12)
[2022-02-08] MEDS: FIDAXOMICIN 200 MG TAB (DIFICID) PO SCH (21:13)
[2022-02-09] MEDS: PIPERACILLIN/TAZOBACTAM SOD 4.5 GM in D5W MINI-BAG PLUS 50 ML IV SCH ×3 (03:26→20:22)
[2022-02-09] MEDS: NS 1,000 ML IV SCH ×3 (04:22→20:24)
[2022-02-09] MEDS: SINEMET 25-100 MG TAB PO SCH ×3 (06:05→15:14)
[2022-02-09 06:08] VITALS: BP 118/68
[2022-02-09] MEDS: ENTACAPONE 200MG TABLET (COMTAN) PO SCH ×3 (06:17→15:14)
[2022-02-09] MEDS: LEVOTHYROXINE 75MCG TABLET (0.075MG) PO SCH (06:17)
[2022-02-09] MEDS: MIRALAX *UNIT DOSE* 17GM PACKET PO SCH (07:44)
[2022-02-09] MEDS: PRAMIPEXOLE 1 MG TAB PO SCH ×3 (07:45→20:22)
[2022-02-09] MEDS: LACTULOSE 20 GM/30 ML SYRUP UD PO SCH (07:45)
[2022-02-09] MEDS: ENOXAPARIN 40MG/0.4ML SYRINGE (J1650 PER 10MG) SC SCH (07:45)
[2022-02-09] MEDS: CYANOCOBALAMIN 500 MCG TAB PO SCH (07:45)
[2022-02-09] MEDS: VITAMIN D 1,000 INTERNATIONAL UNITS TABLET PO SCH (07:45)
[2022-02-09] MEDS: PANTOPRAZOLE 40MG TAB (PROTONIX) PO SCH (07:46)
[2022-02-09] MEDS: FIDAXOMICIN 200 MG TAB (DIFICID) PO SCH ×2 (07:46→20:22)
[2022-02-09] MEDS: SENOKOT S TAB PO SCH ×2 (07:46→20:23)
[2022-02-09] MEDS: POTASSIUM CHLORIDE 10MEQ SR TABLET PO SCH ×2 (07:46→20:23)
[2022-02-09] MEDS: allopurinoL 300 MG TAB PO SCH (07:46)
[2022-02-09] MEDS: LACTOBACILLUS ACIDOPHILUS CAP (BACID) PO SCH ×4 (07:46→20:22)
[2022-02-09] MEDS: COMBIVENT RESPIMAT 100-20MCG INHALER 4GM INH SCH ×3 (07:47→20:50)
[2022-02-09] MEDS: REMEDY PHYTOPLEX Z-GUARD PASTE 113GM TUBE (FROM STOREROOM PRODUCT) TOP SCH ×3 (08:27→20:23)
[2022-02-09 08:36] LABS: BASO # 0.1 10^3/uL (0.0-0.2); BASO % 0.4 % (0.0-1.0); EOS # 0.3 10^3/uL (0.0-0.5); EOS % 1.1 % (0.0-3.0); HEMATOCRIT 37.4 % (36.0-47.0); LYMPH # 1.7 10^3/uL (1.5-5.0); LYMPH % 6.1 % (24.0-44.0); MEAN CORPUSCULAR HEMOGLOBIN 29.1 pg (27.0-33.0); MEAN CORPUSCULAR HGB CONC 32.1 g/dl (32.0-36.5); MEAN CORPUSCULAR VOLUME 90.6 fl (80.0-96.0); MONO # 1.3 10^3/uL (0.0-0.8); MONO % 4.8 % (2.0-8.0); NEUTROPHILS % 86.9 % (36.0-66.0); PLATELET COUNT, AUTOMATED 330 10^3/uL (150-450); RED BLOOD COUNT 4.13 10^6/uL (4.00-5.40); WHITE BLOOD COUNT 27.6 10^3/uL (4.0-10.0)
[2022-02-09 09:07] LABS: CALCIUM LEVEL 8.8 MG/DL (8.8-10.2); CREATININE FOR GFR 1.44 MG/DL (0.55-1.30); GLOMERULAR FILTRATION RATE 37.8 (>39)
[2022-02-09] MEDS: MULTIVITAMINS/MINERALS THERAP 1 TAB PO SCH (11:44)
[2022-02-09] MEDS ORDERED: ONDANSETRON 4MG ORAL DISINTEGRATING TAB PO PRN (12:25)
[2022-02-09 14:00] VITALS: BP 140/60
[2022-02-09] MEDS: ACETAMINOPHEN TAB 650MG DOSE (2X325MG) PO PRN (18:55)
[2022-02-09 19:44] VITALS: BP 132/78
[2022-02-09] MEDS: SIMVASTATIN 40 MG TAB PO SCH (20:22)
[2022-02-10 00:34] VITALS: BP 132/78
[2022-02-10] MEDS: PIPERACILLIN/TAZOBACTAM SOD 4.5 GM in D5W MINI-BAG PLUS 50 ML IV SCH ×3 (04:35→21:54)
[2022-02-10] MEDS: LEVOTHYROXINE 88MCG TABLET (0.088 MG) PO SCH (05:17)
[2022-02-10 05:30] VITALS: BP 126/74
[2022-02-10 07:02] LABS: BASO # 0.1 10^3/uL (0.0-0.2); BASO % 0.4 % (0.0-1.0); EOS # 0.4 10^3/uL (0.0-0.5); EOS % 1.3 % (0.0-3.0); HEMATOCRIT 35.7 % (36.0-47.0); HEMOGLOBIN 11.5 g/dl (12.0-15.5); LYMPH # 1.6 10^3/uL (1.5-5.0); LYMPH % 5.8 % (24.0-44.0); MEAN CORPUSCULAR HEMOGLOBIN 28.6 pg (27.0-33.0); MEAN CORPUSCULAR HGB CONC 32.2 g/dl (32.0-36.5); MEAN CORPUSCULAR VOLUME 88.8 fl (80.0-96.0); MONO # 1.1 10^3/uL (0.0-0.8); MONO % 3.9 % (2.0-8.0); NEUTROPHILS # 23.7 10^3/uL (1.5-8.5); PLATELET COUNT, AUTOMATED 352 10^3/uL (150-450); RED BLOOD COUNT 4.02 10^6/uL (4.00-5.40); WHITE BLOOD COUNT 26.9 10^3/uL (4.0-10.0)
[2022-02-10 07:23] LABS: CALCIUM LEVEL 8.8 MG/DL (8.8-10.2); CREATININE FOR GFR 1.08 MG/DL (0.55-1.30); GLOMERULAR FILTRATION RATE 52.7 (>39); POTASSIUM SERUM 4.4 MEQ/L (3.5-5.1)
[2022-02-10] MEDS: COMBIVENT RESPIMAT 100-20MCG INHALER 4GM INH SCH ×3 (07:29→20:03)
[2022-02-10] MEDS: SENOKOT S TAB PO SCH ×2 (07:49→21:54)
[2022-02-10] MEDS: PANTOPRAZOLE 40MG TAB (PROTONIX) PO SCH (07:49)
[2022-02-10] MEDS: VITAMIN D 1,000 INTERNATIONAL UNITS TABLET PO SCH (07:49)
[2022-02-10] MEDS: SINEMET 25-100 MG TAB PO SCH ×3 (07:49→15:30)
[2022-02-10] MEDS: PRAMIPEXOLE 1 MG TAB PO SCH ×3 (07:49→21:54)
[2022-02-10] MEDS: allopurinoL 300 MG TAB PO SCH (07:50)
[2022-02-10] MEDS: LACTOBACILLUS ACIDOPHILUS CAP (BACID) PO SCH ×4 (07:50→21:54)
[2022-02-10] MEDS: ENTACAPONE 200MG TABLET (COMTAN) PO SCH ×3 (07:52→15:30)
[2022-02-10] MEDS: CYANOCOBALAMIN 500 MCG TAB PO SCH (07:52)
[2022-02-10] MEDS: ENOXAPARIN 40MG/0.4ML SYRINGE (J1650 PER 10MG) SC SCH (07:52)
[2022-02-10] MEDS: POTASSIUM CHLORIDE 10MEQ SR TABLET PO SCH ×2 (07:52→21:55)
[2022-02-10] MEDS: REMEDY PHYTOPLEX Z-GUARD PASTE 113GM TUBE (FROM STOREROOM PRODUCT) TOP SCH ×3 (07:53→21:00)
[2022-02-10] MEDS: MULTIVITAMINS/MINERALS THERAP 1 TAB PO SCH (07:55)
[2022-02-10 14:00] VITALS: BP 138/70
[2022-02-10] MEDS: NS 1,000 ML IV SCH (15:34)
[2022-02-10] MEDS: MIRALAX *UNIT DOSE* 17GM PACKET PO SCH (17:02)
[2022-02-10] MEDS: SIMVASTATIN 40 MG TAB PO SCH (21:54)
[2022-02-10 22:00] VITALS: BP 140/82
[2022-02-11] MEDS: PIPERACILLIN/TAZOBACTAM SOD 4.5 GM in D5W MINI-BAG PLUS 50 ML IV SCH ×3 (03:51→20:18)
[2022-02-11 06:00] VITALS: BP 134/81
[2022-02-11] MEDS: LEVOTHYROXINE 75MCG TABLET (0.075MG) PO SCH (06:05)
[2022-02-11 07:00] LABS: BASO # 0.1 10^3/uL (0.0-0.2); BASO % 0.6 % (0.0-1.0); EOS # 0.5 10^3/uL (0.0-0.5); EOS % 2.4 % (0.0-3.0); HEMATOCRIT 36.1 % (36.0-47.0); HEMOGLOBIN 11.6 g/dl (12.0-15.5); LYMPH # 2.3 10^3/uL (1.5-5.0); LYMPH % 10.9 % (24.0-44.0); MEAN CORPUSCULAR HEMOGLOBIN 29.1 pg (27.0-33.0); MEAN CORPUSCULAR HGB CONC 32.1 g/dl (32.0-36.5); MEAN CORPUSCULAR VOLUME 90.5 fl (80.0-96.0); MONO # 1.1 10^3/uL (0.0-0.8); MONO % 5.2 % (2.0-8.0); NEUTROPHILS # 17.2 10^3/uL (1.5-8.5); PLATELET COUNT, AUTOMATED 388 10^3/uL (150-450); RED BLOOD COUNT 3.99 10^6/uL (4.00-5.40); WHITE BLOOD COUNT 21.5 10^3/uL (4.0-10.0)
[2022-02-11 07:17] LABS: CALCIUM LEVEL 8.8 MG/DL (8.8-10.2); CREATININE FOR GFR 1.02 MG/DL (0.55-1.30); GLOMERULAR FILTRATION RATE 56.2 (>39); POTASSIUM SERUM 4.4 MEQ/L (3.5-5.1)
[2022-02-11] MEDS: COMBIVENT RESPIMAT 100-20MCG INHALER 4GM INH SCH ×3 (07:48→19:41)
[2022-02-11] MEDS: SINEMET 25-100 MG TAB PO SCH ×3 (08:14→15:26)
[2022-02-11] MEDS: CYANOCOBALAMIN 500 MCG TAB PO SCH (08:14)
[2022-02-11] MEDS: LACTOBACILLUS ACIDOPHILUS CAP (BACID) PO SCH ×4 (08:14→20:11)
[2022-02-11] MEDS: allopurinoL 300 MG TAB PO SCH (08:14)
[2022-02-11] MEDS: PRAMIPEXOLE 1 MG TAB PO SCH ×3 (08:15→20:11)
[2022-02-11] MEDS: POTASSIUM CHLORIDE 10MEQ SR TABLET PO SCH ×2 (08:15→20:12)
[2022-02-11] MEDS: PANTOPRAZOLE 40MG TAB (PROTONIX) PO SCH (08:15)
[2022-02-11] MEDS: ENTACAPONE 200MG TABLET (COMTAN) PO SCH ×3 (08:15→15:26)
[2022-02-11] MEDS: VITAMIN D 1,000 INTERNATIONAL UNITS TABLET PO SCH (08:15)
[2022-02-11] MEDS: ENOXAPARIN 40MG/0.4ML SYRINGE (J1650 PER 10MG) SC SCH (08:16)
[2022-02-11] MEDS: SENOKOT S TAB PO SCH ×2 (08:16→20:11)
[2022-02-11] MEDS: REMEDY PHYTOPLEX Z-GUARD PASTE 113GM TUBE (FROM STOREROOM PRODUCT) TOP SCH ×3 (08:16→20:12)
[2022-02-11] MEDS: MIRALAX *UNIT DOSE* 17GM PACKET PO SCH (08:16)
[2022-02-11] MEDS: NS 1,000 ML IV SCH ×2 (10:38→17:31)
[2022-02-11] MEDS: MULTIVITAMINS/MINERALS THERAP 1 TAB PO SCH (12:23)
[2022-02-11 14:00] VITALS: BP 120/66
[2022-02-11 20:00] VITALS: BP 128/62
[2022-02-11] MEDS: SIMVASTATIN 40 MG TAB PO SCH (20:11)
[2022-02-12] MEDS: PIPERACILLIN/TAZOBACTAM SOD 4.5 GM in D5W MINI-BAG PLUS 50 ML IV SCH ×3 (03:50→20:10)
[2022-02-12] MEDS: NS 1,000 ML IV SCH ×2 (03:50→20:10)
[2022-02-12 06:00] VITALS: BP 122/76
[2022-02-12] MEDS: SINEMET 25-100 MG TAB PO SCH ×3 (06:15→16:09)
[2022-02-12] MEDS: ENTACAPONE 200MG TABLET (COMTAN) PO SCH ×3 (06:15→16:09)
[2022-02-12] MEDS: LEVOTHYROXINE 88MCG TABLET (0.088 MG) PO SCH (06:15)
[2022-02-12 07:22] LABS: BASO # 0.2 10^3/uL (0.0-0.2); BASO % 1.2 % (0.0-1.0); EOS # 0.6 10^3/uL (0.0-0.5); EOS % 4.4 % (0.0-3.0); HEMATOCRIT 37.9 % (36.0-47.0); HEMOGLOBIN 12.3 g/dl (12.0-15.5); LYMPH # 2.5 10^3/uL (1.5-5.0); LYMPH % 18.8 % (24.0-44.0); MEAN CORPUSCULAR HEMOGLOBIN 29.2 pg (27.0-33.0); MEAN CORPUSCULAR HGB CONC 32.5 g/dl (32.0-36.5); MONO # 0.9 10^3/uL (0.0-0.8); MONO % 6.7 % (2.0-8.0); NEUTROPHILS # 8.9 10^3/uL (1.5-8.5); NEUTROPHILS % 67.9 % (36.0-66.0); PLATELET COUNT, AUTOMATED 384 10^3/uL (150-450); RED BLOOD COUNT 4.21 10^6/uL (4.00-5.40); WHITE BLOOD COUNT 13.1 10^3/uL (4.0-10.0)
[2022-02-12] MEDS: COMBIVENT RESPIMAT 100-20MCG INHALER 4GM INH SCH ×3 (07:42→20:20)
[2022-02-12 07:45] LABS: CALCIUM LEVEL 8.8 MG/DL (8.8-10.2); CREATININE FOR GFR 1.05 MG/DL (0.55-1.30); GLOMERULAR FILTRATION RATE 54.4 (>39); POTASSIUM SERUM 4.9 MEQ/L (3.5-5.1)
[2022-02-12] MEDS: LACTOBACILLUS ACIDOPHILUS CAP (BACID) PO SCH ×4 (08:19→20:09)
[2022-02-12] MEDS: VITAMIN D 1,000 INTERNATIONAL UNITS TABLET PO SCH (08:19)
[2022-02-12] MEDS: POTASSIUM CHLORIDE 10MEQ SR TABLET PO SCH ×2 (08:19→20:10)
[2022-02-12] MEDS: MIRALAX *UNIT DOSE* 17GM PACKET PO SCH (08:19)
[2022-02-12] MEDS: ENOXAPARIN 40MG/0.4ML SYRINGE (J1650 PER 10MG) SC SCH (08:19)
[2022-02-12] MEDS: allopurinoL 300 MG TAB PO SCH (08:19)
[2022-02-12] MEDS: CYANOCOBALAMIN 500 MCG TAB PO SCH (08:19)
[2022-02-12] MEDS: PANTOPRAZOLE 40MG TAB (PROTONIX) PO SCH (08:19)
[2022-02-12] MEDS: SENOKOT S TAB PO SCH ×2 (08:19→20:10)
[2022-02-12] MEDS: PRAMIPEXOLE 1 MG TAB PO SCH ×3 (08:19→20:10)
[2022-02-12] MEDS: REMEDY PHYTOPLEX Z-GUARD PASTE 113GM TUBE (FROM STOREROOM PRODUCT) TOP SCH ×3 (08:20→20:15)
[2022-02-12] MEDS: MULTIVITAMINS/MINERALS THERAP 1 TAB PO SCH (11:54)
[2022-02-12 14:00] VITALS: BP 118/72
[2022-02-12 19:53] VITALS: BP 108/62
[2022-02-12] MEDS: SIMVASTATIN 40 MG TAB PO SCH (20:10)
[2022-02-13] MEDS: PIPERACILLIN/TAZOBACTAM SOD 4.5 GM in D5W MINI-BAG PLUS 50 ML IV SCH ×3 (03:05→20:59)
[2022-02-13 05:45] VITALS: BP 122/78
[2022-02-13] MEDS: ENTACAPONE 200MG TABLET (COMTAN) PO SCH ×3 (06:28→16:19)
[2022-02-13] MEDS: SINEMET 25-100 MG TAB PO SCH ×3 (06:28→16:19)
[2022-02-13] MEDS: LEVOTHYROXINE 75MCG TABLET (0.075MG) PO SCH (06:28)
[2022-02-13] MEDS: COMBIVENT RESPIMAT 100-20MCG INHALER 4GM INH SCH ×3 (07:25→19:28)
[2022-02-13 07:57] LABS: BASO # 0.2 10^3/uL (0.0-0.2); BASO % 1.3 % (0.0-1.0); EOS # 0.6 10^3/uL (0.0-0.5); EOS % 4.1 % (0.0-3.0); HEMATOCRIT 38.6 % (36.0-47.0); HEMOGLOBIN 12.3 g/dl (12.0-15.5); LYMPH # 2.8 10^3/uL (1.5-5.0); LYMPH % 21.2 % (24.0-44.0); MEAN CORPUSCULAR HEMOGLOBIN 28.7 pg (27.0-33.0); MEAN CORPUSCULAR HGB CONC 31.9 g/dl (32.0-36.5); MONO # 0.8 10^3/uL (0.0-0.8); MONO % 6.1 % (2.0-8.0); NEUTROPHILS # 8.7 10^3/uL (1.5-8.5); NEUTROPHILS % 64.9 % (36.0-66.0); PLATELET COUNT, AUTOMATED 446 10^3/uL (150-450); RED BLOOD COUNT 4.29 10^6/uL (4.00-5.40); WHITE BLOOD COUNT 13.4 10^3/uL (4.0-10.0)
[2022-02-13] MEDS: LACTOBACILLUS ACIDOPHILUS CAP (BACID) PO SCH ×4 (08:00→20:59)
[2022-02-13 08:17] LABS: CALCIUM LEVEL 8.8 MG/DL (8.8-10.2); CREATININE FOR GFR 1.05 MG/DL (0.55-1.30); GLOMERULAR FILTRATION RATE 54.4 (>39); POTASSIUM SERUM 4.3 MEQ/L (3.5-5.1)
[2022-02-13] MEDS: MIRALAX *UNIT DOSE* 17GM PACKET PO SCH (10:50)
[2022-02-13] MEDS: ENOXAPARIN 40MG/0.4ML SYRINGE (J1650 PER 10MG) SC SCH (10:50)
[2022-02-13] MEDS: allopurinoL 300 MG TAB PO SCH (10:51)
[2022-02-13] MEDS: VITAMIN D 1,000 INTERNATIONAL UNITS TABLET PO SCH (10:51)
[2022-02-13] MEDS: CYANOCOBALAMIN 500 MCG TAB PO SCH (10:51)
[2022-02-13] MEDS: PRAMIPEXOLE 1 MG TAB PO SCH ×3 (10:51→21:00)
[2022-02-13] MEDS: PANTOPRAZOLE 40MG TAB (PROTONIX) PO SCH (10:51)
[2022-02-13] MEDS: SENOKOT S TAB PO SCH ×2 (10:51→20:59)
[2022-02-13] MEDS: POTASSIUM CHLORIDE 10MEQ SR TABLET PO SCH ×2 (10:51→21:00)
[2022-02-13] MEDS: REMEDY PHYTOPLEX Z-GUARD PASTE 113GM TUBE (FROM STOREROOM PRODUCT) TOP SCH ×3 (10:52→21:00)
[2022-02-13] MEDS: MULTIVITAMINS/MINERALS THERAP 1 TAB PO SCH (12:23)
[2022-02-13] MEDS: NS 1,000 ML IV SCH (12:33)
[2022-02-13 14:00] VITALS: BP 132/78
[2022-02-13 20:00] VITALS: BP 140/88
[2022-02-13] MEDS: SIMVASTATIN 40 MG TAB PO SCH (20:59)
[2022-02-14] MEDS: PIPERACILLIN/TAZOBACTAM SOD 4.5 GM in D5W MINI-BAG PLUS 50 ML IV SCH (05:05)
[2022-02-14] MEDS: LEVOTHYROXINE 88MCG TABLET (0.088 MG) PO SCH (05:07)
[2022-02-14] MEDS: MIRALAX *UNIT DOSE* 17GM PACKET PO SCH (05:45)
[2022-02-14] MEDS: SENOKOT S TAB PO SCH ×2 (05:45→20:21)
[2022-02-14 06:00] VITALS: BP 142/90
[2022-02-14] MEDS: SINEMET 25-100 MG TAB PO SCH ×3 (06:41→15:01)
[2022-02-14] MEDS: ENTACAPONE 200MG TABLET (COMTAN) PO SCH ×3 (06:41→15:01)
[2022-02-14 06:53] LABS: BASO # 0.2 10^3/uL (0.0-0.2); BASO % 1.6 % (0.0-1.0); EOS # 0.4 10^3/uL (0.0-0.5); EOS % 3.4 % (0.0-3.0); HEMATOCRIT 37.6 % (36.0-47.0); HEMOGLOBIN 12.1 g/dl (12.0-15.5); LYMPH # 2.4 10^3/uL (1.5-5.0); LYMPH % 23.5 % (24.0-44.0); MEAN CORPUSCULAR HEMOGLOBIN 28.8 pg (27.0-33.0); MEAN CORPUSCULAR HGB CONC 32.2 g/dl (32.0-36.5); MEAN CORPUSCULAR VOLUME 89.5 fl (80.0-96.0); MONO # 0.8 10^3/uL (0.0-0.8); MONO % 7.9 % (2.0-8.0); NEUTROPHILS # 6.2 10^3/uL (1.5-8.5); NEUTROPHILS % 61.2 % (36.0-66.0); PLATELET COUNT, AUTOMATED 397 10^3/uL (150-450); WHITE BLOOD COUNT 10.2 10^3/uL (4.0-10.0)
[2022-02-14] MEDS: COMBIVENT RESPIMAT 100-20MCG INHALER 4GM INH SCH ×3 (07:52→19:34)
[2022-02-14] MEDS: LACTOBACILLUS ACIDOPHILUS CAP (BACID) PO SCH ×4 (08:06→20:21)
[2022-02-14] MEDS: ENOXAPARIN 40MG/0.4ML SYRINGE (J1650 PER 10MG) SC SCH (08:07)
[2022-02-14] MEDS: VITAMIN D 1,000 INTERNATIONAL UNITS TABLET PO SCH (08:07)
[2022-02-14] MEDS: POTASSIUM CHLORIDE 10MEQ SR TABLET PO SCH ×2 (08:07→20:21)
[2022-02-14] MEDS: PANTOPRAZOLE 40MG TAB (PROTONIX) PO SCH (08:07)
[2022-02-14] MEDS: CYANOCOBALAMIN 500 MCG TAB PO SCH (08:07)
[2022-02-14] MEDS: PRAMIPEXOLE 1 MG TAB PO SCH ×3 (08:07→20:21)
[2022-02-14] MEDS: REMEDY PHYTOPLEX Z-GUARD PASTE 113GM TUBE (FROM STOREROOM PRODUCT) TOP SCH ×3 (08:08→20:22)
[2022-02-14] MEDS: allopurinoL 300 MG TAB PO SCH (08:14)
[2022-02-14] MEDS: MULTIVITAMINS/MINERALS THERAP 1 TAB PO SCH (11:45)
[2022-02-14 14:00] VITALS: BP 140/84
[2022-02-14 19:18] VITALS: BP 148/82
[2022-02-14] MEDS: SIMVASTATIN 40 MG TAB PO SCH (20:21)
[2022-02-15 05:35] VITALS: BP 144/84
[2022-02-15] MEDS: LEVOTHYROXINE 75MCG TABLET (0.075MG) PO SCH (05:39)
[2022-02-15] MEDS: SINEMET 25-100 MG TAB PO SCH ×3 (06:19→15:23)
[2022-02-15] MEDS: ENTACAPONE 200MG TABLET (COMTAN) PO SCH ×3 (06:19→15:23)
[2022-02-15] MEDS: COMBIVENT RESPIMAT 100-20MCG INHALER 4GM INH SCH ×3 (07:19→20:18)
[2022-02-15] MEDS: LACTOBACILLUS ACIDOPHILUS CAP (BACID) PO SCH ×4 (07:52→20:59)
[2022-02-15] MEDS: PANTOPRAZOLE 40MG TAB (PROTONIX) PO SCH (07:53)
[2022-02-15] MEDS: PRAMIPEXOLE 1 MG TAB PO SCH ×3 (07:53→20:59)
[2022-02-15] MEDS: CYANOCOBALAMIN 500 MCG TAB PO SCH (07:53)
[2022-02-15] MEDS: POTASSIUM CHLORIDE 10MEQ SR TABLET PO SCH ×2 (07:53→20:59)
[2022-02-15] MEDS: VITAMIN D 1,000 INTERNATIONAL UNITS TABLET PO SCH (07:54)
[2022-02-15] MEDS: ENOXAPARIN 40MG/0.4ML SYRINGE (J1650 PER 10MG) SC SCH (07:54)
[2022-02-15] MEDS: allopurinoL 300 MG TAB PO SCH (07:54)
[2022-02-15] MEDS: SENOKOT S TAB PO SCH ×2 (07:57→20:59)
[2022-02-15] MEDS: MIRALAX *UNIT DOSE* 17GM PACKET PO SCH (07:58)
[2022-02-15] MEDS: REMEDY PHYTOPLEX Z-GUARD PASTE 113GM TUBE (FROM STOREROOM PRODUCT) TOP SCH ×3 (09:00→21:00)
[2022-02-15] MEDS: MULTIVITAMINS/MINERALS THERAP 1 TAB PO SCH (11:25)
[2022-02-15 14:00] VITALS: BP 152/78
[2022-02-15] MEDS: ACETAMINOPHEN TAB 650MG DOSE (2X325MG) PO PRN (15:29)
[2022-02-15 19:30] VITALS: BP 124/68
[2022-02-15] MEDS: SIMVASTATIN 40 MG TAB PO SCH (20:59)
[2022-02-16 05:30] VITALS: BP 118/70
[2022-02-16] MEDS: LEVOTHYROXINE 88MCG TABLET (0.088 MG) PO SCH (06:15)
[2022-02-16] MEDS: SINEMET 25-100 MG TAB PO SCH ×3 (06:15→15:31)
[2022-02-16] MEDS: ENTACAPONE 200MG TABLET (COMTAN) PO SCH ×3 (06:15→15:31)
[2022-02-16 06:52] LABS: BASO # 0.1 10^3/uL (0.0-0.2); BASO % 1.2 % (0.0-1.0); EOS # 0.4 10^3/uL (0.0-0.5); EOS % 3.4 % (0.0-3.0); HEMOGLOBIN 12.4 g/dl (12.0-15.5); LYMPH # 2.7 10^3/uL (1.5-5.0); LYMPH % 25.1 % (24.0-44.0); MEAN CORPUSCULAR HEMOGLOBIN 28.4 pg (27.0-33.0); MEAN CORPUSCULAR HGB CONC 31.8 g/dl (32.0-36.5); MEAN CORPUSCULAR VOLUME 89.2 fl (80.0-96.0); MONO # 0.9 10^3/uL (0.0-0.8); MONO % 8.3 % (2.0-8.0); NEUTROPHILS # 6.4 10^3/uL (1.5-8.5); NEUTROPHILS % 59.8 % (36.0-66.0); PLATELET COUNT, AUTOMATED 462 10^3/uL (150-450); RED BLOOD COUNT 4.37 10^6/uL (4.00-5.40); WHITE BLOOD COUNT 10.7 10^3/uL (4.0-10.0)
[2022-02-16 07:22] LABS: BLOOD UREA NITROGEN 18 MG/DL (7-18); CALCIUM LEVEL 9.3 MG/DL (8.8-10.2); CARBON DIOXIDE LEVEL 24 MEQ/L (21-32); CHLORIDE LEVEL 111 MEQ/L (98-107); CREATININE FOR GFR 0.95 MG/DL (0.55-1.30); GLOMERULAR FILTRATION RATE > 60.0 (>39); GLUCOSE, FASTING 132 MG/DL (70-100); POTASSIUM SERUM 4.7 MEQ/L (3.5-5.1); SODIUM LEVEL 140 MEQ/L (136-145)
[2022-02-16] MEDS: COMBIVENT RESPIMAT 100-20MCG INHALER 4GM INH SCH ×3 (07:53→20:00)
[2022-02-16] MEDS ORDERED: POTA-136 PO (08:34)
[2022-02-16] MEDS ORDERED: LEVAINH INH (08:34)
[2022-02-16] MEDS ORDERED: CARB25TA9 PO (08:34)
[2022-02-16] MEDS ORDERED: SIMV40TA20 PO (08:34)
[2022-02-16] MEDS ORDERED: LEVO75TA4 PO (08:34)
[2022-02-16] MEDS ORDERED: COMT200T PO (08:34)
[2022-02-16] MEDS ORDERED: TORS20TA2 PO (08:34)
[2022-02-16] MEDS ORDERED: ALLO300T2 PO (08:34)
[2022-02-16] MEDS ORDERED: PRAM1TAB7 PO (08:34)
[2022-02-16] MEDS ORDERED: SYNT88TA2 PO (08:34)
[2022-02-16] MEDS ORDERED: PANT40TA29 PO (08:34)
[2022-02-16] MEDS: LACTOBACILLUS ACIDOPHILUS CAP (BACID) PO SCH ×4 (08:41→21:25)
[2022-02-16] MEDS: ENOXAPARIN 40MG/0.4ML SYRINGE (J1650 PER 10MG) SC SCH (08:41)
[2022-02-16] MEDS: PRAMIPEXOLE 1 MG TAB PO SCH ×3 (08:41→21:25)
[2022-02-16] MEDS: VITAMIN D 1,000 INTERNATIONAL UNITS TABLET PO SCH (08:41)
[2022-02-16] MEDS: POTASSIUM CHLORIDE 10MEQ SR TABLET PO SCH ×2 (08:41→21:25)
[2022-02-16] MEDS: PANTOPRAZOLE 40MG TAB (PROTONIX) PO SCH (08:42)
[2022-02-16] MEDS: allopurinoL 300 MG TAB PO SCH (08:42)
[2022-02-16] MEDS: REMEDY PHYTOPLEX Z-GUARD PASTE 113GM TUBE (FROM STOREROOM PRODUCT) TOP SCH ×3 (08:42→21:26)
[2022-02-16] MEDS: MIRALAX *UNIT DOSE* 17GM PACKET PO SCH (08:42)
[2022-02-16] MEDS: SENOKOT S TAB PO SCH ×2 (08:42→21:25)
[2022-02-16] MEDS: CYANOCOBALAMIN 500 MCG TAB PO SCH (08:42)
[2022-02-16] MEDS: MULTIVITAMINS/MINERALS THERAP 1 TAB PO SCH (11:21)
[2022-02-16] MEDS ORDERED: MYRB25TA PO (12:11)
[2022-02-16] MEDS: TORSEMIDE 20 MG TAB PO SCH (12:34)
[2022-02-16 14:00] VITALS: BP 128/74
[2022-02-16 20:00] VITALS: BP 132/78
[2022-02-16] MEDS: SIMVASTATIN 40 MG TAB PO SCH (21:25)
[2022-02-17 05:20] VITALS: BP 130/84
[2022-02-17] MEDS: ENTACAPONE 200MG TABLET (COMTAN) PO SCH ×2 (06:38→10:35)
[2022-02-17] MEDS: SINEMET 25-100 MG TAB PO SCH ×2 (06:38→10:35)
[2022-02-17] MEDS: LEVOTHYROXINE 75MCG TABLET (0.075MG) PO SCH (06:39)
[2022-02-17] MEDS: COMBIVENT RESPIMAT 100-20MCG INHALER 4GM INH SCH (07:08)
[2022-02-17] MEDS: REMEDY PHYTOPLEX Z-GUARD PASTE 113GM TUBE (FROM STOREROOM PRODUCT) TOP SCH (09:00)
[2022-02-17] MEDS: PRAMIPEXOLE 1 MG TAB PO SCH (09:00)
[2022-02-17] MEDS: SENOKOT S TAB PO SCH (09:00)
[2022-02-17] MEDS: CYANOCOBALAMIN 500 MCG TAB PO SCH (09:00)
[2022-02-17] MEDS: allopurinoL 300 MG TAB PO SCH (09:00)
[2022-02-17] MEDS: VITAMIN D 1,000 INTERNATIONAL UNITS TABLET PO SCH (09:01)
[2022-02-17] MEDS: TORSEMIDE 20 MG TAB PO SCH (09:01)
[2022-02-17] MEDS: POTASSIUM CHLORIDE 10MEQ SR TABLET PO SCH (09:01)
[2022-02-17] MEDS: PANTOPRAZOLE 40MG TAB (PROTONIX) PO SCH (09:01)
[2022-02-17] MEDS: LACTOBACILLUS ACIDOPHILUS CAP (BACID) PO SCH (09:01)
[2022-02-17] MEDS: MIRALAX *UNIT DOSE* 17GM PACKET PO SCH (09:06)
[2022-02-17] MEDS: MULTIVITAMINS/MINERALS THERAP 1 TAB PO SCH (10:34)
== END 2022-02-17 11:40 | disposition home health service (06) | DRG 57 ==
LOC: M PM&R 13:50
PROVIDERS: ADMIT Physical Medicine & Rehabilitation; ATTEND Physical Medicine & Rehabilitation
DX: G20 Parkinson's disease (principal); L03.115 Cellulitis of right lower limb; Z68.41 Body mass index [BMI] 40.0-44.9, adult; L97.518 Non-pressure chronic ulcer of other part of right foot with other specified severity; I13.0 Hypertensive heart and chronic kidney disease with heart failure and stage 1 through stage 4 chronic kidney disease, or unspecified chronic kidney disease; R53.1 Weakness; E03.9 Hypothyroidism, unspecified; G47.33 Obstructive sleep apnea (adult) (pediatric); R39.15 Urgency of urination; J45.909 Unspecified asthma, uncomplicated; N32.81 Overactive bladder; R19.7 Diarrhea, unspecified; I50.9 Heart failure, unspecified; K59.09 Other constipation; K57.90 Diverticulosis of intestine, part unspecified, without perforation or abscess without bleeding; R60.0 Localized edema; E66.01 Morbid (severe) obesity due to excess calories; R32 Unspecified urinary incontinence; E11.22 Type 2 diabetes mellitus with diabetic chronic kidney disease; N18.9 Chronic kidney disease, unspecified; E87.6 Hypokalemia; D64.9 Anemia, unspecified; D72.829 Elevated white blood cell count, unspecified; M11.9 Crystal arthropathy, unspecified; K21.9 Gastro-esophageal reflux disease without esophagitis; K52.89 Other specified noninfective gastroenteritis and colitis; M10.9 Gout, unspecified; K43.9 Ventral hernia without obstruction or gangrene; E11.621 Type 2 diabetes mellitus with foot ulcer; E11.40 Type 2 diabetes mellitus with diabetic neuropathy, unspecified; Z79.899 Other long term (current) drug therapy; Z74.1 Need for assistance with personal care; Z74.09 Other reduced mobility; Z88.8 Allergy status to other drugs, medicaments and biological substances; Z98.49 Cataract extraction status, unspecified eye; Z87.440 Personal history of urinary (tract) infections; Z89.421 Acquired absence of other right toe(s)

== ENCOUNTER → 2022-02-19 | Outpatient (REF) | payer MEDICARE, OTHER ==
[~2022-02-19] MED LIST changes: +CEFD300C41 PO; +MYRB25TA PO; +POTA-136 PO; +POTA-151 PO; +TORS20TA2 PO
== END ==
LOC: M LAB REF 12:16
PROVIDERS: ATTEND Physician Assistant Medical
DX: L03.115 Cellulitis of right lower limb (principal)

== ENCOUNTER → 2022-03-25 | Outpatient (REF) | payer MEDICARE, OTHER ==
[2022-03-25 17:57] LABS: APPEARANCE, URINE MANUAL CLEAR (CLEAR); COLOR, URINE MANUAL YELLOW (YELLOW)
[2022-03-25 17:58] LABS: BILIRUBIN, URINE MANUAL NEGATIVE (NEGATIVE); BLOOD URINE MANUAL POSITIVE (NEGATIVE); GLUCOSE, URINE (UA) MANUAL NEGATIVE (NEGATIVE); KETONE, URINE MANUAL NEGATIVE (NEGATIVE); LEUKOCYTE ESTERASE, URINE MAN NEGATIVE (NEGATIVE); NITRITE, URINE MANUAL NEGATIVE (NEGATIVE); PH,URINE MAN 6.5 UNITS (5.0 - 7.0); PROTEIN, URINE MANUAL 3+ mg/dL (NEGATIVE); SPECIFIC GRAVITY,URINE MANUAL 1.015 (1.002-1.035); UROBILINOGEN, URINE MANUAL NORMAL (NORMAL)
== END ==
LOC: M SMT 17:01
PROVIDERS: ATTEND Urology
DX: R31.29 Other microscopic hematuria (principal)

== ENCOUNTER → 2022-04-27 | Outpatient (REF) | payer MEDICARE, OTHER | LOC: M SFHCDERM 14:16 | PROVIDERS: ATTEND Physician Assistant | DX: Q82.8 Other specified congenital malformations of skin (principal) ==

== ENCOUNTER → 2022-08-05 | Outpatient (REF) | payer MEDICARE, OTHER ==
[~2022-08-05] MED LIST changes: -DOXY-350 PO; +DOXY-444 PO
[2022-08-05 19:55] LABS: APPEARANCE, URINE MANUAL HAZY (CLEAR); COLOR, URINE MANUAL DK YELLOW (YELLOW)
[2022-08-05 19:57] LABS: BILIRUBIN, URINE MANUAL NEGATIVE (NEGATIVE); BLOOD URINE MANUAL POSITIVE (NEGATIVE); GLUCOSE, URINE (UA) MANUAL NEGATIVE (NEGATIVE); KETONE, URINE MANUAL NEGATIVE (NEGATIVE); LEUKOCYTE ESTERASE, URINE MAN POSITIVE (NEGATIVE); NITRITE, URINE MANUAL NEGATIVE (NEGATIVE); PROTEIN, URINE MANUAL 2+ mg/dL (NEGATIVE); UROBILINOGEN, URINE MANUAL NORMAL (NORMAL)
[2022-08-05 20:13] LABS: WBC, URINE 20-30 /hpf (0-3)
[2022-08-05 20:15] LABS: SQUAMOUS EPITHELIAL CELL URINE MOD AMOUNT /hpf (SMALL AMT)
[2022-08-05 20:17] LABS: BACTERIA, URINE MOD AMOUNT; HYALINE CAST, URINE NONE SEEN /lpf (0-1)
== END ==
LOC: M SMT 17:00
PROVIDERS: ATTEND Urology
DX: Z87.440 Personal history of urinary (tract) infections (principal); Z79.899 Other long term (current) drug therapy

== ENCOUNTER 2022-11-11 12:50 | Inpatient (IN) | payer MEDICARE, OTHER ==
[~2022-11-11] VITALS: Ht 172.7 cm; Wt 117.0 kg
[2022-11-11 13:41] LABS: BASO # 0.1 10^3/uL (0.0-0.2); BASO % 0.3 % (0.0-1.0); HEMOGLOBIN 13.1 g/dl (12.0-15.5); LYMPH # 0.4 10^3/uL (1.5-5.0); LYMPH % 1.4 % (24.0-44.0); MEAN CORPUSCULAR HGB CONC 32.8 g/dl (32.0-36.5); MEAN CORPUSCULAR VOLUME 91.7 fl (80.0-96.0); MONO # 0.9 10^3/uL (0.0-0.8); MONO % 3.2 % (2.0-8.0); NEUTROPHILS # 27.3 10^3/uL (1.5-8.5); PLATELET COUNT, AUTOMATED 255 10^3/uL (150-450); RED BLOOD COUNT 4.36 10^6/uL (4.00-5.40)
[2022-11-11 14:08] LABS: BLOOD UREA NITROGEN 21 MG/DL (9-23); CARBON DIOXIDE LEVEL 22 MMOL/L (20-31); CHLORIDE LEVEL 107 MMOL/L (98-107); CREATININE FOR GFR 0.71 MG/DL (0.55-1.30); GLOMERULAR FILTRATION RATE > 60.0 (>39); GLUCOSE, FASTING 186 MG/DL (74-106); POTASSIUM SERUM 4.4 MMOL/L (3.5-5.1); SODIUM LEVEL 139 MMOL/L (136-145)
[2022-11-11 14:53] LABS: RSV AMPLIFICATION NEGATIVE (NEGATIVE)
[2022-11-11] MEDS ORDERED: VANCOMYCIN HCL 2,000 MG in D5W 500 ML IV ONE (15:05)
[2022-11-11] MEDS ORDERED: PIPERACILLIN/TAZOBACTAM SOD 4.5 GM in D5W MINI-BAG PLUS 50 ML IV ONE (15:05)
[2022-11-11 15:10] LABS: ERYTHROCYTE SEDIMENTATION RATE 58 mm/hr (0-30)
[2022-11-11] MEDS ORDERED: VANCOMYCIN HCL 1,000 MG, VIAL MATE ADAPTER 1 EACH in NS 250 ML IV ONE ×2 (15:15→16:15)
[2022-11-11] MEDS ORDERED: ACETAMINOPHEN 325MG/10.15ML UDC PO ONE ×2 (17:45→21:55)
[2022-11-11] MEDS ORDERED: PROHANCE 279.3MG/ML 15ML VIAL As Ordered ONE (20:15)
[2022-11-11] MEDS ORDERED: PROHANCE 279.3MG/ML 5ML VIAL As Ordered ONE (20:15)
[2022-11-11] MEDS ORDERED: SINEMET 25-100 MG TAB PO ONE (21:30)
[2022-11-11] MEDS ORDERED: SIMV40TA20 PO (23:29)
[2022-11-11] MEDS ORDERED: CARB-113 PO (23:29)
[2022-11-11] MEDS ORDERED: TORS20TA2 PO (23:29)
[2022-11-11] MEDS ORDERED: PANT-23 PO (23:29)
[2022-11-11] MEDS ORDERED: LOSA25TA13 PO (23:29)
[2022-11-11] MEDS ORDERED: LEVAINH INH (23:29)
[2022-11-11] MEDS ORDERED: RISATAB3 PO (23:29)
[2022-11-11] MEDS ORDERED: BECA1GEL EXT (23:29)
[2022-11-11] MEDS ORDERED: SYNT88TA2 PO (23:29)
[2022-11-11] MEDS ORDERED: ALLO300T2 PO (23:29)
[2022-11-11] MEDS ORDERED: POTA-149 PO (23:29)
[2022-11-11] MEDS ORDERED: SYNT75TA PO (23:29)
[2022-11-11] MEDS ORDERED: MIRA1TAB3 PO (23:29)
[2022-11-11] MEDS ORDERED: ENTA1TAB PO (23:29)
[2022-11-11] MEDS ORDERED: HM C500T4 PO (23:29)
[2022-11-11] MEDS ORDERED: MIRA1POW3 PO (23:29)
[2022-11-11] MEDS ORDERED: JANU100T PO (23:29)
[2022-11-11] MEDS ORDERED: COLA100C5 PO (23:30)
[2022-11-11] MEDS ORDERED: MYRB50TA PO (23:30)
[2022-11-11] MEDS ORDERED: HOME MED LIST COMPLETE! XX SCH (23:35)
[2022-11-12] MEDS ORDERED: KETOROLAC 30 MG/ML 1ML VIAL IV ONE ×2 (00:05→21:10)
[2022-11-12] MEDS ORDERED: DEXTROSE 50% 50ML SYRINGE IV PRN (00:35)
[2022-11-12] MEDS ORDERED: GLUCOSE 4GM CHEW TABLET PO PRN (00:35)
[2022-11-12] MEDS ORDERED: GLUCAGON INJ 1MG VIAL SC PRN (00:35)
[2022-11-12] MEDS ORDERED: PILL CUTTER 1 EACH XX PRN (00:55)
[2022-11-12] MEDS ORDERED: cefTRIAXone SOD 2 GM in D5W MINI-BAG PLUS 50 ML IV SCH (01:00)
[2022-11-12] MEDS: SIMVASTATIN 40 MG TAB PO SCH ×2 (01:30→21:43)
[2022-11-12] MEDS: VANCOMYCIN HCL 1,000 MG, VIAL MATE ADAPTER 1 EACH in NS 250 ML IV SCH ×2 (04:19→16:49)
[2022-11-12] MEDS: LEVOTHYROXINE 88MCG TABLET (0.088 MG) PO SCH (07:23)
[2022-11-12 08:11] LABS: BASO # 0.1 10^3/uL (0.0-0.2); BASO % 0.3 % (0.0-1.0); EOS % 0.1 % (0.0-3.0); HEMATOCRIT 41.6 % (36.0-47.0); HEMOGLOBIN 13.3 g/dl (12.0-15.5); LYMPH # 0.9 10^3/uL (1.5-5.0); LYMPH % 4.8 % (24.0-44.0); MEAN CORPUSCULAR HEMOGLOBIN 29.2 pg (27.0-33.0); MEAN CORPUSCULAR VOLUME 91.4 fl (80.0-96.0); MONO # 0.7 10^3/uL (0.0-0.8); MONO % 3.6 % (2.0-8.0); NEUTROPHILS # 16.5 10^3/uL (1.5-8.5); NEUTROPHILS % 90.5 % (36.0-66.0); RED BLOOD COUNT 4.55 10^6/uL (4.00-5.40); WHITE BLOOD COUNT 18.2 10^3/uL (4.0-10.0)
[2022-11-12 08:19] LABS: PLATELET COUNT, AUTOMATED 203 10^3/uL (150-450)
[2022-11-12] MEDS: ACETAMINOPHEN TAB 650MG DOSE (2X325MG) PO PRN ×3 (08:43→21:44)
[2022-11-12] MEDS: INSULIN LISPRO (NovoLOG) PER UNIT SC SCH ×4 (08:45→21:00)
[2022-11-12 08:59] VITALS: BP 132/71
[2022-11-12] MEDS ORDERED: TORSEMIDE 20 MG TAB PO SCH (09:00)
[2022-11-12 09:03] LABS: ALBUMIN 3.3 G/DL (3.2-5.2); ALKALINE PHOSPHATASE 60 U/L (46-116); ALT/SGPT < 9 U/L (7.0-40); AST/SGOT 18 U/L (<34); BILIRUBIN,TOTAL 0.5 MG/DL (0.3-1.2); BLOOD UREA NITROGEN 11 MG/DL (9-23); CARBON DIOXIDE LEVEL 21 MMOL/L (20-31); CHLORIDE LEVEL 104 MMOL/L (98-107); CREATININE FOR GFR 0.81 MG/DL (0.55-1.30); GLOMERULAR FILTRATION RATE > 60.0 (>39); GLUCOSE, FASTING 107 MG/DL (74-106); MAGNESIUM LEVEL 1.8 MG/DL (1.8-2.4); POTASSIUM SERUM 4.5 MMOL/L (3.5-5.1); SODIUM LEVEL 134 MMOL/L (136-145)
[2022-11-12 09:15] LABS: TOTAL PROTEIN 7.5 G/DL (5.7-8.2)
[2022-11-12] MEDS ORDERED: NS 1,000 ML IV ONE (09:15)
[2022-11-12] MEDS: ENOXAPARIN 40MG/0.4ML SYRINGE (J1650 PER 10MG) SC SCH (10:19)
[2022-11-12] MEDS: allopurinoL 300 MG TAB PO SCH (10:20)
[2022-11-12] MEDS: LOSARTAN 25 MG TAB PO SCH (10:20)
[2022-11-12] MEDS: ENTACAPONE 200MG TABLET (COMTAN) PO SCH ×4 (10:20→21:43)
[2022-11-12] MEDS: DOCUSATE SODIUM 100MG CAPSULE PO SCH (10:21)
[2022-11-12] MEDS: SINEMET 25-100 MG TAB PO SCH ×4 (10:21→21:43)
[2022-11-12] MEDS: NS 1,000 ML IV SCH ×2 (11:00→20:30)
[2022-11-12 12:00] VITALS: BP 143/72
[2022-11-12 16:00] VITALS: BP 161/81
[2022-11-12 20:00] VITALS: BP 152/73
[2022-11-12] MEDS: PIPERACILLIN/TAZOBACTAM SOD 3.375 GM in D5W MINI-BAG PLUS 50 ML IV SCH (21:43)
[2022-11-13] VITALS: BP 118/62
[2022-11-13] MEDS: PIPERACILLIN/TAZOBACTAM SOD 3.375 GM in D5W MINI-BAG PLUS 50 ML IV SCH ×4 (03:17→20:54)
[2022-11-13 04:00] VITALS: BP 120/70
[2022-11-13 04:50] LABS: BASO # 0.1 10^3/uL (0.0-0.2); BASO % 0.4 % (0.0-1.0); EOS # 0.2 10^3/uL (0.0-0.5); EOS % 1.5 % (0.0-3.0); HEMOGLOBIN 12.1 g/dl (12.0-15.5); LYMPH # 1.3 10^3/uL (1.5-5.0); LYMPH % 8.1 % (24.0-44.0); MEAN CORPUSCULAR HEMOGLOBIN 31.4 pg (27.0-33.0); MEAN CORPUSCULAR HGB CONC 33.6 g/dl (32.0-36.5); MEAN CORPUSCULAR VOLUME 93.5 fl (80.0-96.0); MONO % 6.1 % (2.0-8.0); NEUTROPHILS # 13.6 10^3/uL (1.5-8.5); NEUTROPHILS % 83.3 % (36.0-66.0); PLATELET COUNT, AUTOMATED 187 10^3/uL (150-450); RED BLOOD COUNT 3.85 10^6/uL (4.00-5.40); WHITE BLOOD COUNT 16.3 10^3/uL (4.0-10.0)
[2022-11-13] MEDS: NS 1,000 ML IV SCH ×2 (05:04→09:28)
[2022-11-13 05:53] LABS: HIV 1&2 SCREEN CENTAUR NEGATIVE (NEGATIVE)
[2022-11-13 05:56] LABS: BLOOD UREA NITROGEN 21 MG/DL (9-23); CARBON DIOXIDE LEVEL 25 MMOL/L (20-31); CHLORIDE LEVEL 108 MMOL/L (98-107); CREATININE FOR GFR 1.07 MG/DL (0.55-1.30); GLOMERULAR FILTRATION RATE 53.1 (>39); GLUCOSE, FASTING 108 MG/DL (74-106); MAGNESIUM LEVEL 1.8 MG/DL (1.8-2.4); POTASSIUM SERUM 3.5 MMOL/L (3.5-5.1); SODIUM LEVEL 138 MMOL/L (136-145)
[2022-11-13] MEDS: LEVOTHYROXINE 75MCG TABLET (0.075MG) PO SCH (06:00)
[2022-11-13] MEDS: VANCOMYCIN HCL 1,000 MG, VIAL MATE ADAPTER 1 EACH in NS 250 ML IV SCH ×2 (06:00→16:12)
[2022-11-13 08:29] VITALS: BP 152/85
[2022-11-13] MEDS: ENTACAPONE 200MG TABLET (COMTAN) PO SCH ×4 (09:27→20:53)
[2022-11-13] MEDS: LOSARTAN 25 MG TAB PO SCH (09:27)
[2022-11-13] MEDS: DOCUSATE SODIUM 100MG CAPSULE PO SCH (09:27)
[2022-11-13] MEDS: SINEMET 25-100 MG TAB PO SCH ×4 (09:27→20:53)
[2022-11-13] MEDS: ENOXAPARIN 40MG/0.4ML SYRINGE (J1650 PER 10MG) SC SCH (09:27)
[2022-11-13] MEDS: allopurinoL 300 MG TAB PO SCH (09:27)
[2022-11-13] MEDS: INSULIN LISPRO (NovoLOG) PER UNIT SC SCH ×4 (09:28→20:54)
[2022-11-13 11:57] VITALS: BP 155/89
[2022-11-13] MEDS: ACETAMINOPHEN TAB 650MG DOSE (2X325MG) PO PRN ×2 (12:20→20:54)
[2022-11-13] MEDS: LEVALBUTEROL HFA 45MCG/ACT 15GM INHALER INH PRN (12:22)
[2022-11-13] MEDS ORDERED: oxyCODONE 5MG TAB PO PRN (13:10)
[2022-11-13] MEDS ORDERED: ISOVUE-370 76% 100ML VIAL As Ordered ONE (14:46)
[2022-11-13 16:12] VITALS: BP 152/68
[2022-11-13 20:00] VITALS: BP 152/92
[2022-11-13] MEDS: SIMVASTATIN 40 MG TAB PO SCH (20:54)
[2022-11-14] VITALS (7 sets, daily range): BP systolic 118–163; BP diastolic 61–90
[2022-11-14] MEDS: PIPERACILLIN/TAZOBACTAM SOD 3.375 GM in D5W MINI-BAG PLUS 50 ML IV SCH ×4 (02:56→20:23)
[2022-11-14] MEDS: VANCOMYCIN HCL 1,000 MG, VIAL MATE ADAPTER 1 EACH in NS 250 ML IV SCH (04:02)
[2022-11-14] MEDS: LEVALBUTEROL HFA 45MCG/ACT 15GM INHALER INH PRN (04:06)
[2022-11-14 05:37] LABS: BASO # 0.1 10^3/uL (0.0-0.2); BASO % 0.6 % (0.0-1.0); EOS # 0.3 10^3/uL (0.0-0.5); HEMOGLOBIN 11.5 g/dl (12.0-15.5); LYMPH # 1.4 10^3/uL (1.5-5.0); LYMPH % 9.6 % (24.0-44.0); MEAN CORPUSCULAR HEMOGLOBIN 29.9 pg (27.0-33.0); MEAN CORPUSCULAR HGB CONC 32.9 g/dl (32.0-36.5); MEAN CORPUSCULAR VOLUME 90.9 fl (80.0-96.0); MONO # 0.9 10^3/uL (0.0-0.8); MONO % 6.3 % (2.0-8.0); NEUTROPHILS # 11.3 10^3/uL (1.5-8.5); NEUTROPHILS % 80.8 % (36.0-66.0); PLATELET COUNT, AUTOMATED 207 10^3/uL (150-450); RED BLOOD COUNT 3.85 10^6/uL (4.00-5.40)
[2022-11-14] MEDS: LEVOTHYROXINE 88MCG TABLET (0.088 MG) PO SCH (05:39)
[2022-11-14 06:04] LABS: BLOOD UREA NITROGEN 13 MG/DL (9-23); CALCIUM LEVEL 8.1 MG/DL (8.3-10.6); CARBON DIOXIDE LEVEL 23 MMOL/L (20-31); CHLORIDE LEVEL 112 MMOL/L (98-107); CREATININE FOR GFR 0.72 MG/DL (0.55-1.30); GLOMERULAR FILTRATION RATE > 60.0 (>39); GLUCOSE, FASTING 122 MG/DL (74-106); MAGNESIUM LEVEL 1.8 MG/DL (1.8-2.4); POTASSIUM SERUM 3.9 MMOL/L (3.5-5.1); SODIUM LEVEL 141 MMOL/L (136-145)
[2022-11-14] MEDS ORDERED: IPRATROPIUM 0.5MG/ALBUTEROL 2.5MG INH SOL UD 3ML (DUONEB) NEB PRN (06:55)
[2022-11-14] MEDS: INSULIN LISPRO (NovoLOG) PER UNIT SC SCH ×4 (08:35→20:22)
[2022-11-14] MEDS: ENOXAPARIN 40MG/0.4ML SYRINGE (J1650 PER 10MG) SC SCH (08:35)
[2022-11-14] MEDS: ENTACAPONE 200MG TABLET (COMTAN) PO SCH ×4 (08:40→20:22)
[2022-11-14] MEDS: LOSARTAN 25 MG TAB PO SCH (08:40)
[2022-11-14] MEDS: SINEMET 25-100 MG TAB PO SCH ×4 (08:41→20:22)
[2022-11-14] MEDS: allopurinoL 300 MG TAB PO SCH (08:41)
[2022-11-14] MEDS: DOCUSATE SODIUM 100MG CAPSULE PO SCH (08:41)
[2022-11-14] MEDS: TORSEMIDE 20 MG TAB PO SCH (15:15)
[2022-11-14] MEDS: SIMVASTATIN 40 MG TAB PO SCH (20:22)
[2022-11-15] MEDS: PIPERACILLIN/TAZOBACTAM SOD 3.375 GM in D5W MINI-BAG PLUS 50 ML IV SCH (03:17)
[2022-11-15 04:44] VITALS: BP 156/78
[2022-11-15 05:42] LABS: BASO # 0.1 10^3/uL (0.0-0.2); BASO % 0.9 % (0.0-1.0); EOS # 0.4 10^3/uL (0.0-0.5); EOS % 3.5 % (0.0-3.0); HEMATOCRIT 35.8 % (36.0-47.0); HEMOGLOBIN 11.9 g/dl (12.0-15.5); LYMPH # 1.9 10^3/uL (1.5-5.0); LYMPH % 15.5 % (24.0-44.0); MEAN CORPUSCULAR HEMOGLOBIN 29.7 pg (27.0-33.0); MEAN CORPUSCULAR HGB CONC 33.2 g/dl (32.0-36.5); MEAN CORPUSCULAR VOLUME 89.3 fl (80.0-96.0); MONO # 1.2 10^3/uL (0.0-0.8); MONO % 9.5 % (2.0-8.0); NEUTROPHILS # 8.7 10^3/uL (1.5-8.5); NEUTROPHILS % 69.9 % (36.0-66.0); PLATELET COUNT, AUTOMATED 242 10^3/uL (150-450); RED BLOOD COUNT 4.01 10^6/uL (4.00-5.40); WHITE BLOOD COUNT 12.4 10^3/uL (4.0-10.0)
[2022-11-15] MEDS: LEVOTHYROXINE 75MCG TABLET (0.075MG) PO SCH (05:47)
[2022-11-15 06:05] LABS: BLOOD UREA NITROGEN 12 MG/DL (9-23); CARBON DIOXIDE LEVEL 26 MMOL/L (20-31); CHLORIDE LEVEL 107 MMOL/L (98-107); CREATININE FOR GFR 0.76 MG/DL (0.55-1.30); GLOMERULAR FILTRATION RATE > 60.0 (>39); GLUCOSE, FASTING 111 MG/DL (74-106); MAGNESIUM LEVEL 1.7 MG/DL (1.8-2.4); POTASSIUM SERUM 3.2 MMOL/L (3.5-5.1); SODIUM LEVEL 140 MMOL/L (136-145)
[2022-11-15 08:00] VITALS: BP 155/75
[2022-11-15] MEDS: INSULIN LISPRO (NovoLOG) PER UNIT SC SCH ×4 (08:31→21:00)
[2022-11-15] MEDS: MAGNESIUM OXIDE 400MG TAB (MAG-OX) PO SCH ×2 (08:32→21:02)
[2022-11-15] MEDS: ENOXAPARIN 40MG/0.4ML SYRINGE (J1650 PER 10MG) SC SCH (08:32)
[2022-11-15] MEDS: ENTACAPONE 200MG TABLET (COMTAN) PO SCH ×4 (08:32→21:02)
[2022-11-15] MEDS: TORSEMIDE 20 MG TAB PO SCH (08:33)
[2022-11-15] MEDS: allopurinoL 300 MG TAB PO SCH (08:33)
[2022-11-15] MEDS: DOCUSATE SODIUM 100MG CAPSULE PO SCH (08:33)
[2022-11-15] MEDS: SINEMET 25-100 MG TAB PO SCH ×4 (08:33→21:02)
[2022-11-15] MEDS: LOSARTAN 50MG TABLET PO SCH (08:41)
[2022-11-15] MEDS ORDERED: POTASSIUM CHLORIDE 10MEQ SR TABLET PO ONE (09:00)
[2022-11-15] MEDS: CEFUROXIME 500 MG TAB PO SCH ×2 (11:09→21:02)
[2022-11-15 12:30] VITALS: BP 157/77
[2022-11-15] MEDS: ASPIRIN 81MG ENTERIC TABLET PO SCH (13:28)
[2022-11-15 15:59] VITALS: BP 145/71
[2022-11-15 20:23] VITALS: BP 133/63
[2022-11-15] MEDS: SIMVASTATIN 40 MG TAB PO SCH (21:02)
[2022-11-15] MEDS: POLYVINYL ALCOHOL OPHTH SOLN 15ML (LIQUITEARS) OU PRN (21:03)
[2022-11-16] VITALS (7 sets, daily range): BP systolic 132–141; BP diastolic 62–81
[2022-11-16] MEDS: LEVOTHYROXINE 88MCG TABLET (0.088 MG) PO SCH (05:25)
[2022-11-16 06:22] LABS: BASO # 0.1 10^3/uL (0.0-0.2); BASO % 1.1 % (0.0-1.0); EOS # 0.5 10^3/uL (0.0-0.5); EOS % 4.1 % (0.0-3.0); HEMATOCRIT 39.4 % (36.0-47.0); LYMPH # 2.4 10^3/uL (1.5-5.0); LYMPH % 18.4 % (24.0-44.0); MEAN CORPUSCULAR HEMOGLOBIN 29.9 pg (27.0-33.0); MEAN CORPUSCULAR VOLUME 90.6 fl (80.0-96.0); MONO % 7.9 % (2.0-8.0); NEUTROPHILS # 8.7 10^3/uL (1.5-8.5); NEUTROPHILS % 66.9 % (36.0-66.0); PLATELET COUNT, AUTOMATED 303 10^3/uL (150-450); RED BLOOD COUNT 4.35 10^6/uL (4.00-5.40)
[2022-11-16 06:55] LABS: BLOOD UREA NITROGEN 17 MG/DL (9-23); CALCIUM LEVEL 8.3 MG/DL (8.3-10.6); CARBON DIOXIDE LEVEL 29 MMOL/L (20-31); CHLORIDE LEVEL 104 MMOL/L (98-107); CREATININE FOR GFR 0.75 MG/DL (0.55-1.30); GLOMERULAR FILTRATION RATE > 60.0 (>39); GLUCOSE, FASTING 136 MG/DL (74-106); POTASSIUM SERUM 3.6 MMOL/L (3.5-5.1); SODIUM LEVEL 138 MMOL/L (136-145)
[2022-11-16] MEDS ORDERED: POTASSIUM CHLORIDE 10MEQ SR TABLET PO ONE (07:30)
[2022-11-16] MEDS: INSULIN LISPRO (NovoLOG) PER UNIT SC SCH ×4 (08:15→20:11)
[2022-11-16] MEDS: ENOXAPARIN 40MG/0.4ML SYRINGE (J1650 PER 10MG) SC SCH (08:15)
[2022-11-16] MEDS: allopurinoL 300 MG TAB PO SCH (08:17)
[2022-11-16] MEDS: DOCUSATE SODIUM 100MG CAPSULE PO SCH (08:18)
[2022-11-16] MEDS: LOSARTAN 50MG TABLET PO SCH (08:18)
[2022-11-16] MEDS: ASPIRIN 81MG ENTERIC TABLET PO SCH (08:18)
[2022-11-16] MEDS: CEFUROXIME 500 MG TAB PO SCH (08:18)
[2022-11-16] MEDS: ENTACAPONE 200MG TABLET (COMTAN) PO SCH ×4 (08:18→20:12)
[2022-11-16] MEDS: SINEMET 25-100 MG TAB PO SCH ×4 (08:19→20:13)
[2022-11-16] MEDS: TORSEMIDE 20 MG TAB PO SCH (08:19)
[2022-11-16] MEDS ORDERED: AUGMENTIN 875 MG TAB PO SCH (09:00)
[2022-11-16] MEDS: POLYVINYL ALCOHOL OPHTH SOLN 15ML (LIQUITEARS) OU PRN (11:30)
[2022-11-16] MEDS: SIMVASTATIN 40 MG TAB PO SCH (20:11)
[2022-11-16] MEDS: AUGMENTIN 875 MG TAB PO SCH (20:12)
[2022-11-16] MEDS ORDERED: METOPROLOL SUCC *XL* 12.5MG PER 1/2 TAB (TopROL *XL*) PO SCH (21:00)
[2022-11-17 03:26] VITALS: BP 116/55
[2022-11-17 06:02] LABS: BASO # 0.2 10^3/uL (0.0-0.2); BASO % 1.4 % (0.0-1.0); EOS # 0.7 10^3/uL (0.0-0.5); EOS % 4.2 % (0.0-3.0); HEMOGLOBIN 13.5 g/dl (12.0-15.5); LYMPH # 4.6 10^3/uL (1.5-5.0); LYMPH % 27.6 % (24.0-44.0); MEAN CORPUSCULAR HEMOGLOBIN 29.3 pg (27.0-33.0); MEAN CORPUSCULAR HGB CONC 32.1 g/dl (32.0-36.5); MEAN CORPUSCULAR VOLUME 91.1 fl (80.0-96.0); MONO % 5.8 % (2.0-8.0); NEUTROPHILS # 9.6 10^3/uL (1.5-8.5); NEUTROPHILS % 57.9 % (36.0-66.0); PLATELET COUNT, AUTOMATED 402 10^3/uL (150-450); RED BLOOD COUNT 4.61 10^6/uL (4.00-5.40); WHITE BLOOD COUNT 16.6 10^3/uL (4.0-10.0)
[2022-11-17] MEDS: LEVOTHYROXINE 75MCG TABLET (0.075MG) PO SCH (06:08)
[2022-11-17 06:25] LABS: BLOOD UREA NITROGEN 21 MG/DL (9-23); CALCIUM LEVEL 8.8 MG/DL (8.3-10.6); CARBON DIOXIDE LEVEL 27 MMOL/L (20-31); CHLORIDE LEVEL 104 MMOL/L (98-107); CREATININE FOR GFR 0.75 MG/DL (0.55-1.30); GLOMERULAR FILTRATION RATE > 60.0 (>39); GLUCOSE, FASTING 130 MG/DL (74-106); MAGNESIUM LEVEL 1.9 MG/DL (1.8-2.4); POTASSIUM SERUM 3.9 MMOL/L (3.5-5.1); SODIUM LEVEL 139 MMOL/L (136-145)
[2022-11-17 08:12] VITALS: BP 158/72
[2022-11-17 08:54] VITALS: BP 158/72
[2022-11-17] MEDS: LOSARTAN 50MG TABLET PO SCH (08:54)
[2022-11-17] MEDS: INSULIN LISPRO (NovoLOG) PER UNIT SC SCH ×2 (08:54→12:07)
[2022-11-17] MEDS: ENTACAPONE 200MG TABLET (COMTAN) PO SCH ×2 (08:54→12:06)
[2022-11-17] MEDS: TORSEMIDE 20 MG TAB PO SCH (08:55)
[2022-11-17] MEDS: ENOXAPARIN 40MG/0.4ML SYRINGE (J1650 PER 10MG) SC SCH (08:55)
[2022-11-17] MEDS: allopurinoL 300 MG TAB PO SCH (08:55)
[2022-11-17] MEDS: AUGMENTIN 875 MG TAB PO SCH (08:55)
[2022-11-17] MEDS: ASPIRIN 81MG ENTERIC TABLET PO SCH (08:55)
[2022-11-17] MEDS: SINEMET 25-100 MG TAB PO SCH ×2 (08:55→12:06)
[2022-11-17] MEDS ORDERED: MYRBETRIQ 50 MG PO SCH (09:00)
[2022-11-17] MEDS: DOCUSATE SODIUM 100MG CAPSULE PO SCH (09:00)
[2022-11-17] MEDS: POLYVINYL ALCOHOL OPHTH SOLN 15ML (LIQUITEARS) OU PRN (11:00)
[2022-11-17] MEDS ORDERED: ASPI81TAEC PO (11:28)
[2022-11-17] MEDS ORDERED: LOSA50TA28 PO (11:28)
[2022-11-17] MEDS ORDERED: METO1TAB32 PO (11:28)
[2022-11-17] MEDS ORDERED: AMOX875T2 PO (11:28)
[2022-11-17] MEDS: ACETAMINOPHEN TAB 650MG DOSE (2X325MG) PO PRN (12:06)
== END 2022-11-17 14:51 | DRG 872 ==
LOC: EDBD 12:50 → M ED 12:50 → M ED INP 23:17 → ENRESERV 11-12 06:45 → M ICU 11-12 08:52 → M PCU 11-12 19:12
PROVIDERS: ADMIT Family Medicine; ATTEND Internal Medicine
PROC: B246ZZZ Ultrasonography of Right and Left Heart (ICD-10-PCS; principal; 2022-11-14)
DX: A41.9 Sepsis, unspecified organism (principal); L03.115 Cellulitis of right lower limb; I50.30 Unspecified diastolic (congestive) heart failure; E87.20 Acidosis, unspecified; G20 Parkinson's disease; E03.9 Hypothyroidism, unspecified; G47.33 Obstructive sleep apnea (adult) (pediatric); I11.0 Hypertensive heart disease with heart failure; E11.40 Type 2 diabetes mellitus with diabetic neuropathy, unspecified; Z98.49 Cataract extraction status, unspecified eye; M51.16 Intervertebral disc disorders with radiculopathy, lumbar region; E86.1 Hypovolemia; M10.9 Gout, unspecified; Z66 Do not resuscitate; B95.61 Methicillin susceptible Staphylococcus aureus infection as the cause of diseases classified elsewhere; B96.4 Proteus (mirabilis) (morganii) as the cause of diseases classified elsewhere; B95.0 Streptococcus, group A, as the cause of diseases classified elsewhere; M48.061 Spinal stenosis, lumbar region without neurogenic claudication; K59.00 Constipation, unspecified; E66.01 Morbid (severe) obesity due to excess calories; I27.20 Pulmonary hypertension, unspecified; K74.60 Unspecified cirrhosis of liver; E11.628 Type 2 diabetes mellitus with other skin complications; K76.0 Fatty (change of) liver, not elsewhere classified; K42.9 Umbilical hernia without obstruction or gangrene; I25.10 Atherosclerotic heart disease of native coronary artery without angina pectoris; Z74.09 Other reduced mobility; Z79.890 Hormone replacement therapy; Z79.899 Other long term (current) drug therapy; Z88.8 Allergy status to other drugs, medicaments and biological substances; I25.2 Old myocardial infarction

== ENCOUNTER 2022-11-17 14:55 | Inpatient (IN) | payer MEDICARE, OTHER ==
[~2022-11-17] VITALS: Ht 167.6 cm; Wt 114.2 kg
[2022-11-17 14:00] VITALS: BP 146/70
[~2022-11-17 14:55] MED LIST changes: +AMOX875T2 PO; +ASPI81TAEC PO; +BECA1GEL EXT; +CARB-113 PO; +HM C500T4 PO; +LOSA50TA28 PO; +METO1TAB32 PO; +MIRA1POW3 PO; +MIRA1TAB3 PO; +MYRB50TA PO; +PANT-23 PO; +POTA-149 PO; +SYNT75TA PO
[2022-11-17] MEDS ORDERED: DEXTROSE 50% 50ML SYRINGE IV PRN (15:50)
[2022-11-17] MEDS ORDERED: GLUCAGON INJ 1MG VIAL SC PRN (15:50)
[2022-11-17] MEDS ORDERED: GLUCOSE 4GM CHEW TABLET PO PRN (15:50)
[2022-11-17] MEDS: REMEDY PHYTOPLEX Z-GUARD PASTE 113GM TUBE (FROM STOREROOM PRODUCT) TOP SCH ×2 (16:00→21:30)
[2022-11-17] MEDS ORDERED: PILL CUTTER 1 EACH XX PRN (16:30)
[2022-11-17 16:56] VITALS: BP 146/70
[2022-11-17] MEDS: LACTOBACILLUS ACIDOPHILUS CAP (BACID) PO SCH (17:43)
[2022-11-17] MEDS: ENTACAPONE 200MG TABLET (COMTAN) PO SCH ×2 (17:43→21:31)
[2022-11-17] MEDS: INSULIN LISPRO (NovoLOG) PER UNIT SC SCH ×2 (17:43→21:00)
[2022-11-17] MEDS: SINEMET 25-100 MG TAB PO SCH ×2 (17:43→21:33)
[2022-11-17 20:00] VITALS: BP 126/60
[2022-11-17] MEDS: SENNA 8.6 MG TAB (SENOKOT) PO SCH (21:00)
[2022-11-17] MEDS: DOCUSATE SODIUM 100MG CAPSULE PO SCH (21:00)
[2022-11-17] MEDS: COMBIVENT RESPIMAT 100-20MCG INHALER 4GM INH SCH (21:18)
[2022-11-17] MEDS: POLYVINYL ALCOHOL OPHTH SOLN 15ML (LIQUITEARS) OU SCH (21:29)
[2022-11-17] MEDS: SIMVASTATIN 40 MG TAB PO SCH (21:31)
[2022-11-17] MEDS: METOPROLOL SUCC *XL* 12.5MG PER 1/2 TAB (TopROL *XL*) PO SCH (21:31)
[2022-11-17] MEDS: AUGMENTIN 875 MG TAB PO SCH (21:32)
[2022-11-18] MEDS: LEVOTHYROXINE 88MCG TABLET (0.088 MG) PO SCH (05:54)
[2022-11-18 06:00] VITALS: BP 158/78
[2022-11-18 06:42] LABS: BASO # 0.2 10^3/uL (0.0-0.2); BASO % 1.1 % (0.0-1.0); EOS # 0.6 10^3/uL (0.0-0.5); EOS % 4.4 % (0.0-3.0); HEMATOCRIT 38.9 % (36.0-47.0); HEMOGLOBIN 12.6 g/dl (12.0-15.5); LYMPH % 21.7 % (24.0-44.0); MEAN CORPUSCULAR HEMOGLOBIN 29.4 pg (27.0-33.0); MEAN CORPUSCULAR HGB CONC 32.4 g/dl (32.0-36.5); MEAN CORPUSCULAR VOLUME 90.7 fl (80.0-96.0); MONO % 6.9 % (2.0-8.0); NEUTROPHILS # 8.5 10^3/uL (1.5-8.5); NEUTROPHILS % 62.5 % (36.0-66.0); PLATELET COUNT, AUTOMATED 373 10^3/uL (150-450); RED BLOOD COUNT 4.29 10^6/uL (4.00-5.40); WHITE BLOOD COUNT 13.7 10^3/uL (4.0-10.0)
[2022-11-18 07:00] LABS: ALBUMIN 2.7 G/DL (3.2-5.2); ALKALINE PHOSPHATASE 72 U/L (46-116); ALT/SGPT 18 U/L (7.0-40); AST/SGOT 20 U/L (<34); BILIRUBIN,TOTAL 0.4 MG/DL (0.3-1.2); BLOOD UREA NITROGEN 20 MG/DL (9-23); CALCIUM LEVEL 8.5 MG/DL (8.3-10.6); CARBON DIOXIDE LEVEL 28 MMOL/L (20-31); CHLORIDE LEVEL 108 MMOL/L (98-107); CREATININE FOR GFR 0.65 MG/DL (0.55-1.30); GLOMERULAR FILTRATION RATE > 60.0 (>39); GLUCOSE, FASTING 140 MG/DL (74-106); POTASSIUM SERUM 3.7 MMOL/L (3.5-5.1); SODIUM LEVEL 142 MMOL/L (136-145); TOTAL PROTEIN 6.8 G/DL (5.7-8.2)
[2022-11-18] MEDS: COMBIVENT RESPIMAT 100-20MCG INHALER 4GM INH SCH ×3 (07:24→21:13)
[2022-11-18] MEDS: INSULIN LISPRO (NovoLOG) PER UNIT SC SCH ×4 (07:30→21:00)
[2022-11-18] MEDS: DOCUSATE SODIUM 100MG CAPSULE PO SCH ×2 (09:00→21:00)
[2022-11-18] MEDS: PANTOPRAZOLE 40MG TAB (PROTONIX) PO SCH (09:39)
[2022-11-18] MEDS: ENOXAPARIN 40MG/0.4ML SYRINGE (J1650 PER 10MG) SC SCH (09:39)
[2022-11-18] MEDS: TORSEMIDE 20 MG TAB PO SCH (09:39)
[2022-11-18] MEDS: ASPIRIN 81MG ENTERIC TABLET PO SCH (09:39)
[2022-11-18] MEDS: AUGMENTIN 875 MG TAB PO SCH ×2 (09:39→21:09)
[2022-11-18] MEDS: allopurinoL 300 MG TAB PO SCH (09:40)
[2022-11-18] MEDS: LACTOBACILLUS ACIDOPHILUS CAP (BACID) PO SCH ×2 (09:40→17:20)
[2022-11-18] MEDS: SINEMET 25-100 MG TAB PO SCH ×4 (09:40→21:08)
[2022-11-18] MEDS: ENTACAPONE 200MG TABLET (COMTAN) PO SCH ×4 (09:40→21:08)
[2022-11-18] MEDS: MIRABEGRON 50 MG PO SCH (09:41)
[2022-11-18] MEDS: POLYVINYL ALCOHOL OPHTH SOLN 15ML (LIQUITEARS) OU SCH ×3 (09:41→21:10)
[2022-11-18] MEDS: REMEDY PHYTOPLEX Z-GUARD PASTE 113GM TUBE (FROM STOREROOM PRODUCT) TOP SCH ×3 (09:42→21:00)
[2022-11-18] MEDS: LOSARTAN 50MG TABLET PO SCH (09:50)
[2022-11-18] MEDS ORDERED: POTASSIUM CHLORIDE 10MEQ SR TABLET PO ONE (09:50)
[2022-11-18 14:00] VITALS: BP 121/64
[2022-11-18 19:30] VITALS: BP 157/73
[2022-11-18] MEDS: SENNA 8.6 MG TAB (SENOKOT) PO SCH (21:00)
[2022-11-18] MEDS: SIMVASTATIN 40 MG TAB PO SCH (21:08)
[2022-11-18] MEDS: METOPROLOL SUCC *XL* 12.5MG PER 1/2 TAB (TopROL *XL*) PO SCH (21:09)
[2022-11-19 05:31] VITALS: BP 156/74
[2022-11-19] MEDS: LEVOTHYROXINE 75MCG TABLET (0.075MG) PO SCH (06:07)
[2022-11-19] MEDS: COMBIVENT RESPIMAT 100-20MCG INHALER 4GM INH SCH ×3 (07:15→20:08)
[2022-11-19] MEDS ORDERED: HOME MED LIST COMPLETE! XX SCH (08:30)
[2022-11-19] MEDS: INSULIN LISPRO (NovoLOG) PER UNIT SC SCH ×4 (08:51→21:00)
[2022-11-19] MEDS: MIRABEGRON 50 MG PO SCH (08:51)
[2022-11-19] MEDS: ONDANSETRON 4MG TAB PO PRN (08:51)
[2022-11-19] MEDS: LACTOBACILLUS ACIDOPHILUS CAP (BACID) PO SCH ×2 (08:51→17:11)
[2022-11-19] MEDS: ASPIRIN 81MG ENTERIC TABLET PO SCH (08:52)
[2022-11-19] MEDS: PANTOPRAZOLE 40MG TAB (PROTONIX) PO SCH (08:52)
[2022-11-19] MEDS: TORSEMIDE 20 MG TAB PO SCH (08:52)
[2022-11-19] MEDS: AUGMENTIN 875 MG TAB PO SCH ×2 (08:52→21:30)
[2022-11-19] MEDS: allopurinoL 300 MG TAB PO SCH (08:52)
[2022-11-19] MEDS: ENOXAPARIN 40MG/0.4ML SYRINGE (J1650 PER 10MG) SC SCH (08:52)
[2022-11-19] MEDS: ENTACAPONE 200MG TABLET (COMTAN) PO SCH ×4 (08:52→18:49)
[2022-11-19] MEDS: SINEMET 25-100 MG TAB PO SCH ×4 (08:53→18:49)
[2022-11-19] MEDS: LOSARTAN 50MG TABLET PO SCH (08:56)
[2022-11-19] MEDS: DOCUSATE SODIUM 100MG CAPSULE PO SCH ×2 (08:57→21:29)
[2022-11-19] MEDS: REMEDY PHYTOPLEX Z-GUARD PASTE 113GM TUBE (FROM STOREROOM PRODUCT) TOP SCH ×3 (09:00→21:00)
[2022-11-19] MEDS: POLYVINYL ALCOHOL OPHTH SOLN 15ML (LIQUITEARS) OU SCH ×3 (09:00→21:40)
[2022-11-19 13:57] VITALS: BP 120/60
[2022-11-19 20:00] VITALS: BP 114/65
[2022-11-19] MEDS: SENNA 8.6 MG TAB (SENOKOT) PO SCH (21:29)
[2022-11-19] MEDS: SIMVASTATIN 40 MG TAB PO SCH (21:30)
[2022-11-19] MEDS: METOPROLOL SUCC *XL* 12.5MG PER 1/2 TAB (TopROL *XL*) PO SCH (22:12)
[2022-11-20 06:00] VITALS: BP 137/72
[2022-11-20] MEDS: ENTACAPONE 200MG TABLET (COMTAN) PO SCH ×4 (06:03→18:41)
[2022-11-20] MEDS: LEVOTHYROXINE 88MCG TABLET (0.088 MG) PO SCH (06:03)
[2022-11-20] MEDS: SINEMET 25-100 MG TAB PO SCH ×4 (06:03→18:41)
[2022-11-20] MEDS: COMBIVENT RESPIMAT 100-20MCG INHALER 4GM INH SCH ×3 (07:15→20:39)
[2022-11-20] MEDS: MIRABEGRON 50 MG PO SCH (08:14)
[2022-11-20] MEDS: ASPIRIN 81MG ENTERIC TABLET PO SCH (08:15)
[2022-11-20] MEDS: AUGMENTIN 875 MG TAB PO SCH ×2 (08:15→22:17)
[2022-11-20] MEDS: DOCUSATE SODIUM 100MG CAPSULE PO SCH ×2 (08:15→22:17)
[2022-11-20] MEDS: LACTOBACILLUS ACIDOPHILUS CAP (BACID) PO SCH ×2 (08:15→18:08)
[2022-11-20] MEDS: allopurinoL 300 MG TAB PO SCH (08:16)
[2022-11-20] MEDS: TORSEMIDE 20 MG TAB PO SCH (08:16)
[2022-11-20] MEDS: PANTOPRAZOLE 40MG TAB (PROTONIX) PO SCH (08:16)
[2022-11-20] MEDS: LOSARTAN 50MG TABLET PO SCH (08:17)
[2022-11-20] MEDS: ENOXAPARIN 40MG/0.4ML SYRINGE (J1650 PER 10MG) SC SCH (08:18)
[2022-11-20] MEDS: INSULIN LISPRO (NovoLOG) PER UNIT SC SCH ×4 (08:18→21:00)
[2022-11-20] MEDS: REMEDY PHYTOPLEX Z-GUARD PASTE 113GM TUBE (FROM STOREROOM PRODUCT) TOP SCH ×3 (08:19→22:20)
[2022-11-20] MEDS: POLYVINYL ALCOHOL OPHTH SOLN 15ML (LIQUITEARS) OU SCH ×3 (08:19→22:21)
[2022-11-20 14:00] VITALS: BP 132/83
[2022-11-20 20:00] VITALS: BP 154/69
[2022-11-20] MEDS: SIMVASTATIN 40 MG TAB PO SCH (22:17)
[2022-11-20] MEDS: METOPROLOL SUCC *XL* 12.5MG PER 1/2 TAB (TopROL *XL*) PO SCH (22:18)
[2022-11-20] MEDS: SENNA 8.6 MG TAB (SENOKOT) PO SCH (22:18)
[2022-11-21 06:00] VITALS: BP 125/73
[2022-11-21] MEDS: LEVOTHYROXINE 75MCG TABLET (0.075MG) PO SCH (06:30)
[2022-11-21] MEDS: SINEMET 25-100 MG TAB PO SCH ×4 (06:31→18:52)
[2022-11-21] MEDS: ENTACAPONE 200MG TABLET (COMTAN) PO SCH ×4 (06:32→18:52)
[2022-11-21] MEDS: COMBIVENT RESPIMAT 100-20MCG INHALER 4GM INH SCH ×3 (07:43→20:15)
[2022-11-21] MEDS: LOSARTAN 50MG TABLET PO SCH (08:08)
[2022-11-21] MEDS: AUGMENTIN 875 MG TAB PO SCH (08:09)
[2022-11-21] MEDS: DOCUSATE SODIUM 100MG CAPSULE PO SCH ×2 (08:09→21:11)
[2022-11-21] MEDS: allopurinoL 300 MG TAB PO SCH (08:09)
[2022-11-21] MEDS: ACETAMINOPHEN TAB 650MG DOSE (2X325MG) PO PRN (08:09)
[2022-11-21] MEDS: TORSEMIDE 20 MG TAB PO SCH (08:09)
[2022-11-21] MEDS: LACTOBACILLUS ACIDOPHILUS CAP (BACID) PO SCH ×2 (08:09→17:40)
[2022-11-21] MEDS: PANTOPRAZOLE 40MG TAB (PROTONIX) PO SCH (08:09)
[2022-11-21] MEDS: MIRABEGRON 50 MG PO SCH (08:09)
[2022-11-21] MEDS: ASPIRIN 81MG ENTERIC TABLET PO SCH (08:09)
[2022-11-21] MEDS: ENOXAPARIN 40MG/0.4ML SYRINGE (J1650 PER 10MG) SC SCH (08:10)
[2022-11-21] MEDS: INSULIN LISPRO (NovoLOG) PER UNIT SC SCH ×4 (08:10→21:00)
[2022-11-21] MEDS: REMEDY PHYTOPLEX Z-GUARD PASTE 113GM TUBE (FROM STOREROOM PRODUCT) TOP SCH ×3 (08:11→21:11)
[2022-11-21] MEDS: POLYVINYL ALCOHOL OPHTH SOLN 15ML (LIQUITEARS) OU SCH ×3 (08:11→21:11)
[2022-11-21 12:46] LABS: BASO # 0.1 10^3/uL (0.0-0.2); EOS # 0.3 10^3/uL (0.0-0.5); EOS % 2.1 % (0.0-3.0); HEMATOCRIT 42.9 % (36.0-47.0); HEMOGLOBIN 13.7 g/dl (12.0-15.5); LYMPH # 2.5 10^3/uL (1.5-5.0); LYMPH % 19.6 % (24.0-44.0); MEAN CORPUSCULAR HGB CONC 31.9 g/dl (32.0-36.5); MEAN CORPUSCULAR VOLUME 90.9 fl (80.0-96.0); MONO # 0.8 10^3/uL (0.0-0.8); MONO % 6.4 % (2.0-8.0); NEUTROPHILS # 8.9 10^3/uL (1.5-8.5); NEUTROPHILS % 69.6 % (36.0-66.0); PLATELET COUNT, AUTOMATED 439 10^3/uL (150-450); RED BLOOD COUNT 4.72 10^6/uL (4.00-5.40); WHITE BLOOD COUNT 12.8 10^3/uL (4.0-10.0)
[2022-11-21 13:09] LABS: BLOOD UREA NITROGEN 21 MG/DL (9-23); CARBON DIOXIDE LEVEL 25 MMOL/L (20-31); CHLORIDE LEVEL 103 MMOL/L (98-107); CREATININE FOR GFR 0.83 MG/DL (0.55-1.30); GLOMERULAR FILTRATION RATE > 60.0 (>39); GLUCOSE, FASTING 148 MG/DL (74-106); POTASSIUM SERUM 3.9 MMOL/L (3.5-5.1); SODIUM LEVEL 137 MMOL/L (136-145)
[2022-11-21 14:00] VITALS: BP 107/58
[2022-11-21 20:00] VITALS: BP 131/60
[2022-11-21] MEDS: METOPROLOL SUCC *XL* 12.5MG PER 1/2 TAB (TopROL *XL*) PO SCH (21:10)
[2022-11-21] MEDS: SENNA 8.6 MG TAB (SENOKOT) PO SCH (21:11)
[2022-11-21] MEDS: SIMVASTATIN 40 MG TAB PO SCH (21:11)
[2022-11-22 06:00] VITALS: BP 140/79
[2022-11-22] MEDS: ENTACAPONE 200MG TABLET (COMTAN) PO SCH ×4 (06:32→20:02)
[2022-11-22] MEDS: SINEMET 25-100 MG TAB PO SCH ×4 (06:32→20:03)
[2022-11-22] MEDS: LEVOTHYROXINE 88MCG TABLET (0.088 MG) PO SCH (06:33)
[2022-11-22] MEDS: COMBIVENT RESPIMAT 100-20MCG INHALER 4GM INH SCH ×3 (07:19→21:12)
[2022-11-22] MEDS: ENOXAPARIN 40MG/0.4ML SYRINGE (J1650 PER 10MG) SC SCH (08:37)
[2022-11-22] MEDS: MIRABEGRON 50 MG PO SCH (08:37)
[2022-11-22] MEDS: ASPIRIN 81MG ENTERIC TABLET PO SCH (08:38)
[2022-11-22] MEDS: DOCUSATE SODIUM 100MG CAPSULE PO SCH ×2 (08:38→20:02)
[2022-11-22] MEDS: TORSEMIDE 20 MG TAB PO SCH (08:38)
[2022-11-22] MEDS: PANTOPRAZOLE 40MG TAB (PROTONIX) PO SCH (08:38)
[2022-11-22] MEDS: allopurinoL 300 MG TAB PO SCH (08:38)
[2022-11-22] MEDS: LOSARTAN 50MG TABLET PO SCH (08:38)
[2022-11-22] MEDS: LACTOBACILLUS ACIDOPHILUS CAP (BACID) PO SCH ×2 (08:38→18:00)
[2022-11-22] MEDS: INSULIN LISPRO (NovoLOG) PER UNIT SC SCH ×4 (08:39→20:03)
[2022-11-22] MEDS: REMEDY PHYTOPLEX Z-GUARD PASTE 113GM TUBE (FROM STOREROOM PRODUCT) TOP SCH ×3 (08:40→21:00)
[2022-11-22] MEDS: POLYVINYL ALCOHOL OPHTH SOLN 15ML (LIQUITEARS) OU SCH ×3 (08:40→20:03)
[2022-11-22 14:00] VITALS: BP 109/70
[2022-11-22 20:00] VITALS: BP 124/74
[2022-11-22] MEDS: SIMVASTATIN 40 MG TAB PO SCH (20:02)
[2022-11-22] MEDS: SENNA 8.6 MG TAB (SENOKOT) PO SCH (20:02)
[2022-11-22] MEDS: METOPROLOL SUCC *XL* 12.5MG PER 1/2 TAB (TopROL *XL*) PO SCH (20:03)
[2022-11-22] MEDS: ACETAMINOPHEN TAB 650MG DOSE (2X325MG) PO PRN (20:08)
[2022-11-22] MEDS: ANALGESIC BALM CRM 3OZ TOP PRN (21:16)
[2022-11-23] MEDS: LEVOTHYROXINE 75MCG TABLET (0.075MG) PO SCH (05:36)
[2022-11-23 06:00] VITALS: BP 148/77
[2022-11-23] MEDS: ENTACAPONE 200MG TABLET (COMTAN) PO SCH ×4 (06:24→18:11)
[2022-11-23] MEDS: SINEMET 25-100 MG TAB PO SCH ×4 (06:24→18:11)
[2022-11-23 06:46] LABS: BASO # 0.1 10^3/uL (0.0-0.2); EOS # 0.3 10^3/uL (0.0-0.5); HEMATOCRIT 38.8 % (36.0-47.0); HEMOGLOBIN 12.4 g/dl (12.0-15.5); LYMPH # 2.8 10^3/uL (1.5-5.0); MEAN CORPUSCULAR VOLUME 90.7 fl (80.0-96.0); MONO % 9.3 % (2.0-8.0); NEUTROPHILS # 6.7 10^3/uL (1.5-8.5); PLATELET COUNT, AUTOMATED 413 10^3/uL (150-450); RED BLOOD COUNT 4.28 10^6/uL (4.00-5.40)
[2022-11-23 07:23] LABS: BLOOD UREA NITROGEN 20 MG/DL (9-23); CALCIUM LEVEL 9.2 MG/DL (8.3-10.6); CARBON DIOXIDE LEVEL 28 MMOL/L (20-31); CHLORIDE LEVEL 103 MMOL/L (98-107); CREATININE FOR GFR 0.74 MG/DL (0.55-1.30); GLOMERULAR FILTRATION RATE > 60.0 (>39); GLUCOSE, FASTING 138 MG/DL (74-106); POTASSIUM SERUM 3.8 MMOL/L (3.5-5.1); SODIUM LEVEL 137 MMOL/L (136-145)
[2022-11-23] MEDS: COMBIVENT RESPIMAT 100-20MCG INHALER 4GM INH SCH ×3 (07:33→20:13)
[2022-11-23] MEDS: INSULIN LISPRO (NovoLOG) PER UNIT SC SCH ×4 (08:07→21:00)
[2022-11-23] MEDS: PANTOPRAZOLE 40MG TAB (PROTONIX) PO SCH (08:08)
[2022-11-23] MEDS: MIRABEGRON 50 MG PO SCH (08:08)
[2022-11-23] MEDS: TORSEMIDE 20 MG TAB PO SCH (08:08)
[2022-11-23] MEDS: allopurinoL 300 MG TAB PO SCH (08:08)
[2022-11-23] MEDS: ASPIRIN 81MG ENTERIC TABLET PO SCH (08:09)
[2022-11-23] MEDS: LACTOBACILLUS ACIDOPHILUS CAP (BACID) PO SCH ×2 (08:09→17:06)
[2022-11-23] MEDS: DOCUSATE SODIUM 100MG CAPSULE PO SCH ×2 (08:09→21:03)
[2022-11-23] MEDS: LOSARTAN 50MG TABLET PO SCH (08:09)
[2022-11-23] MEDS: ENOXAPARIN 40MG/0.4ML SYRINGE (J1650 PER 10MG) SC SCH (08:11)
[2022-11-23] MEDS: POLYVINYL ALCOHOL OPHTH SOLN 15ML (LIQUITEARS) OU SCH ×3 (08:13→21:05)
[2022-11-23] MEDS: REMEDY PHYTOPLEX Z-GUARD PASTE 113GM TUBE (FROM STOREROOM PRODUCT) TOP SCH ×3 (08:13→21:05)
[2022-11-23 14:00] VITALS: BP 112/63
[2022-11-23] MEDS: ACETAMINOPHEN 650MG ER TAB (TYLENOL ARTHRITIS) PO SCH ×2 (15:09→21:04)
[2022-11-23 20:00] VITALS: BP 130/77
[2022-11-23] MEDS: SIMVASTATIN 40 MG TAB PO SCH (21:03)
[2022-11-23] MEDS: SENNA 8.6 MG TAB (SENOKOT) PO SCH (21:03)
[2022-11-23] MEDS: METOPROLOL SUCC *XL* 12.5MG PER 1/2 TAB (TopROL *XL*) PO SCH (21:04)
[2022-11-23] MEDS: ANALGESIC BALM CRM 3OZ TOP PRN (21:07)
[2022-11-24 06:10] VITALS: BP 157/75
[2022-11-24] MEDS: SINEMET 25-100 MG TAB PO SCH ×4 (06:17→19:24)
[2022-11-24] MEDS: LEVOTHYROXINE 88MCG TABLET (0.088 MG) PO SCH (06:17)
[2022-11-24] MEDS: ENTACAPONE 200MG TABLET (COMTAN) PO SCH ×4 (06:17→19:23)
[2022-11-24] MEDS: COMBIVENT RESPIMAT 100-20MCG INHALER 4GM INH SCH ×3 (07:35→19:34)
[2022-11-24] MEDS: LACTOBACILLUS ACIDOPHILUS CAP (BACID) PO SCH ×2 (08:09→17:10)
[2022-11-24] MEDS: allopurinoL 300 MG TAB PO SCH (08:10)
[2022-11-24] MEDS: LOSARTAN 50MG TABLET PO SCH (08:10)
[2022-11-24] MEDS: ASPIRIN 81MG ENTERIC TABLET PO SCH (08:10)
[2022-11-24] MEDS: INSULIN LISPRO (NovoLOG) PER UNIT SC SCH ×4 (08:10→20:23)
[2022-11-24] MEDS: TORSEMIDE 20 MG TAB PO SCH (08:10)
[2022-11-24] MEDS: PANTOPRAZOLE 40MG TAB (PROTONIX) PO SCH (08:11)
[2022-11-24] MEDS: ENOXAPARIN 40MG/0.4ML SYRINGE (J1650 PER 10MG) SC SCH (08:17)
[2022-11-24] MEDS: ACETAMINOPHEN 650MG ER TAB (TYLENOL ARTHRITIS) PO SCH ×3 (08:17→20:31)
[2022-11-24] MEDS: MIRABEGRON 50 MG PO SCH (08:17)
[2022-11-24] MEDS: DOCUSATE SODIUM 100MG CAPSULE PO SCH ×2 (08:17→20:31)
[2022-11-24] MEDS: POLYVINYL ALCOHOL OPHTH SOLN 15ML (LIQUITEARS) OU SCH ×3 (08:18→20:32)
[2022-11-24] MEDS: REMEDY PHYTOPLEX Z-GUARD PASTE 113GM TUBE (FROM STOREROOM PRODUCT) TOP SCH ×3 (08:19→20:34)
[2022-11-24] MEDS: ONDANSETRON 4MG TAB PO PRN (09:25)
[2022-11-24] MEDS ORDERED: GABAPENTIN 100 MG CAP PO ONE (12:00)
[2022-11-24] MEDS: LIDOCAINE 5% (LIDODERM) PATCH TD SCH (12:19)
[2022-11-24] MEDS: DICLOFENAC EPOLAMINE 1.3% PATCH TOP SCH ×2 (12:20→20:32)
[2022-11-24 14:00] VITALS: BP 135/74
[2022-11-24] MEDS: GABAPENTIN 100 MG CAP PO SCH ×2 (16:11→20:32)
[2022-11-24 20:00] VITALS: BP 131/71
[2022-11-24] MEDS: SIMVASTATIN 40 MG TAB PO SCH (20:31)
[2022-11-24] MEDS: SENNA 8.6 MG TAB (SENOKOT) PO SCH (20:31)
[2022-11-24] MEDS: METOPROLOL SUCC *XL* 12.5MG PER 1/2 TAB (TopROL *XL*) PO SCH (20:32)
[2022-11-25] MEDS: LEVOTHYROXINE 75MCG TABLET (0.075MG) PO SCH (05:44)
[2022-11-25 05:52] VITALS: BP 153/72
[2022-11-25] MEDS: ENTACAPONE 200MG TABLET (COMTAN) PO SCH ×4 (06:33→21:44)
[2022-11-25] MEDS: SINEMET 25-100 MG TAB PO SCH ×4 (06:33→21:43)
[2022-11-25] MEDS: COMBIVENT RESPIMAT 100-20MCG INHALER 4GM INH SCH ×3 (07:14→20:00)
[2022-11-25 07:30] LABS: BASO # 0.1 10^3/uL (0.0-0.2); BASO % 1.3 % (0.0-1.0); EOS # 0.3 10^3/uL (0.0-0.5); EOS % 3.8 % (0.0-3.0); HEMATOCRIT 38.1 % (36.0-47.0); HEMOGLOBIN 12.3 g/dl (12.0-15.5); LYMPH # 2.8 10^3/uL (1.5-5.0); LYMPH % 31.7 % (24.0-44.0); MEAN CORPUSCULAR HEMOGLOBIN 29.4 pg (27.0-33.0); MEAN CORPUSCULAR HGB CONC 32.3 g/dl (32.0-36.5); MEAN CORPUSCULAR VOLUME 91.1 fl (80.0-96.0); MONO # 0.7 10^3/uL (0.0-0.8); MONO % 7.9 % (2.0-8.0); NEUTROPHILS # 4.9 10^3/uL (1.5-8.5); PLATELET COUNT, AUTOMATED 398 10^3/uL (150-450); RED BLOOD COUNT 4.18 10^6/uL (4.00-5.40); WHITE BLOOD COUNT 8.9 10^3/uL (4.0-10.0)
[2022-11-25 07:56] LABS: BLOOD UREA NITROGEN 18 MG/DL (9-23); CALCIUM LEVEL 8.8 MG/DL (8.3-10.6); CARBON DIOXIDE LEVEL 29 MMOL/L (20-31); CHLORIDE LEVEL 102 MMOL/L (98-107); CREATININE FOR GFR 0.78 MG/DL (0.55-1.30); GLOMERULAR FILTRATION RATE > 60.0 (>39); GLUCOSE, FASTING 145 MG/DL (74-106); POTASSIUM SERUM 3.6 MMOL/L (3.5-5.1); SODIUM LEVEL 136 MMOL/L (136-145)
[2022-11-25] MEDS: LACTOBACILLUS ACIDOPHILUS CAP (BACID) PO SCH ×2 (08:02→17:18)
[2022-11-25] MEDS: INSULIN LISPRO (NovoLOG) PER UNIT SC SCH ×4 (08:02→21:00)
[2022-11-25] MEDS: ACETAMINOPHEN 650MG ER TAB (TYLENOL ARTHRITIS) PO SCH ×3 (08:02→21:43)
[2022-11-25] MEDS: allopurinoL 300 MG TAB PO SCH (08:02)
[2022-11-25] MEDS: ASPIRIN 81MG ENTERIC TABLET PO SCH (08:03)
[2022-11-25] MEDS: TORSEMIDE 20 MG TAB PO SCH (08:03)
[2022-11-25] MEDS: ENOXAPARIN 40MG/0.4ML SYRINGE (J1650 PER 10MG) SC SCH (08:03)
[2022-11-25] MEDS: PANTOPRAZOLE 40MG TAB (PROTONIX) PO SCH (08:03)
[2022-11-25] MEDS: MIRABEGRON 50 MG PO SCH (08:03)
[2022-11-25] MEDS: GABAPENTIN 100 MG CAP PO SCH ×3 (08:03→21:44)
[2022-11-25] MEDS: DOCUSATE SODIUM 100MG CAPSULE PO SCH ×2 (08:04→21:43)
[2022-11-25] MEDS: LIDOCAINE 5% (LIDODERM) PATCH TD SCH (08:06)
[2022-11-25] MEDS: LOSARTAN 50MG TABLET PO SCH (08:06)
[2022-11-25] MEDS: POLYVINYL ALCOHOL OPHTH SOLN 15ML (LIQUITEARS) OU SCH ×3 (08:07→21:44)
[2022-11-25] MEDS: REMEDY PHYTOPLEX Z-GUARD PASTE 113GM TUBE (FROM STOREROOM PRODUCT) TOP SCH ×3 (08:07→21:44)
[2022-11-25] MEDS: DICLOFENAC EPOLAMINE 1.3% PATCH TOP SCH ×2 (08:15→21:43)
[2022-11-25 14:00] VITALS: BP 127/76
[2022-11-25] MEDS: SENNA 8.6 MG TAB (SENOKOT) PO SCH (21:00)
[2022-11-25] MEDS: SIMVASTATIN 40 MG TAB PO SCH (21:44)
[2022-11-25] MEDS: METOPROLOL SUCC *XL* 12.5MG PER 1/2 TAB (TopROL *XL*) PO SCH (21:47)
[2022-11-25 22:00] VITALS: BP 161/78
[2022-11-25 23:35] LABS: THYROID STIMULATING HORMONE 4.307 uIU/ML (0.55-4.78)
[2022-11-26] MEDS: SINEMET 25-100 MG TAB PO SCH ×4 (06:26→20:05)
[2022-11-26] MEDS: ENTACAPONE 200MG TABLET (COMTAN) PO SCH ×4 (06:26→20:06)
[2022-11-26] MEDS: LEVOTHYROXINE 88MCG TABLET (0.088 MG) PO SCH (06:26)
[2022-11-26 06:56] VITALS: BP 122/80
[2022-11-26] MEDS: COMBIVENT RESPIMAT 100-20MCG INHALER 4GM INH SCH ×3 (07:27→19:54)
[2022-11-26] MEDS: ACETAMINOPHEN 650MG ER TAB (TYLENOL ARTHRITIS) PO SCH ×3 (08:47→20:09)
[2022-11-26] MEDS: LACTOBACILLUS ACIDOPHILUS CAP (BACID) PO SCH ×2 (08:47→17:51)
[2022-11-26] MEDS: INSULIN LISPRO (NovoLOG) PER UNIT SC SCH ×4 (08:47→20:09)
[2022-11-26] MEDS: ASPIRIN 81MG ENTERIC TABLET PO SCH (08:48)
[2022-11-26] MEDS: LOSARTAN 50MG TABLET PO SCH (08:48)
[2022-11-26] MEDS: MIRABEGRON 50 MG PO SCH (08:48)
[2022-11-26] MEDS: TORSEMIDE 20 MG TAB PO SCH (08:48)
[2022-11-26] MEDS: DOCUSATE SODIUM 100MG CAPSULE PO SCH ×2 (08:48→20:08)
[2022-11-26] MEDS: PANTOPRAZOLE 40MG TAB (PROTONIX) PO SCH (08:48)
[2022-11-26] MEDS: allopurinoL 300 MG TAB PO SCH (08:48)
[2022-11-26] MEDS: ENOXAPARIN 40MG/0.4ML SYRINGE (J1650 PER 10MG) SC SCH (08:49)
[2022-11-26] MEDS: GABAPENTIN 100 MG CAP PO SCH ×3 (08:49→20:08)
[2022-11-26] MEDS: LIDOCAINE 5% (LIDODERM) PATCH TD SCH (08:50)
[2022-11-26] MEDS: REMEDY PHYTOPLEX Z-GUARD PASTE 113GM TUBE (FROM STOREROOM PRODUCT) TOP SCH ×3 (08:50→20:10)
[2022-11-26] MEDS: DICLOFENAC EPOLAMINE 1.3% PATCH TOP SCH ×2 (08:50→20:07)
[2022-11-26] MEDS: POLYVINYL ALCOHOL OPHTH SOLN 15ML (LIQUITEARS) OU SCH ×3 (08:51→20:10)
[2022-11-26 14:00] VITALS: BP 113/63
[2022-11-26 20:00] VITALS: BP 121/70
[2022-11-26] MEDS: METOPROLOL SUCC *XL* 12.5MG PER 1/2 TAB (TopROL *XL*) PO SCH (20:08)
[2022-11-26] MEDS: SENNA 8.6 MG TAB (SENOKOT) PO SCH (20:08)
[2022-11-26] MEDS: SIMVASTATIN 40 MG TAB PO SCH (20:09)
[2022-11-27 06:00] VITALS: BP 157/70
[2022-11-27] MEDS: LEVOTHYROXINE 75MCG TABLET (0.075MG) PO SCH (07:19)
[2022-11-27] MEDS: SINEMET 25-100 MG TAB PO SCH ×4 (07:19→18:05)
[2022-11-27] MEDS: ENTACAPONE 200MG TABLET (COMTAN) PO SCH ×4 (07:19→18:05)
[2022-11-27] MEDS: LACTOBACILLUS ACIDOPHILUS CAP (BACID) PO SCH ×2 (08:00→18:05)
[2022-11-27] MEDS: COMBIVENT RESPIMAT 100-20MCG INHALER 4GM INH SCH ×3 (08:05→20:03)
[2022-11-27] MEDS: INSULIN LISPRO (NovoLOG) PER UNIT SC SCH ×4 (08:51→20:48)
[2022-11-27] MEDS: REMEDY PHYTOPLEX Z-GUARD PASTE 113GM TUBE (FROM STOREROOM PRODUCT) TOP SCH ×3 (09:00→20:47)
[2022-11-27] MEDS: PANTOPRAZOLE 40MG TAB (PROTONIX) PO SCH (09:00)
[2022-11-27] MEDS: ONDANSETRON 4MG TAB PO PRN (09:19)
[2022-11-27] MEDS: ACETAMINOPHEN 650MG ER TAB (TYLENOL ARTHRITIS) PO SCH ×3 (09:22→20:46)
[2022-11-27] MEDS: GABAPENTIN 100 MG CAP PO SCH ×3 (09:22→20:45)
[2022-11-27] MEDS: DOCUSATE SODIUM 100MG CAPSULE PO SCH ×2 (09:22→20:46)
[2022-11-27] MEDS: allopurinoL 300 MG TAB PO SCH (10:15)
[2022-11-27] MEDS: ASPIRIN 81MG ENTERIC TABLET PO SCH (10:15)
[2022-11-27] MEDS: MIRABEGRON 50 MG PO SCH (10:16)
[2022-11-27] MEDS: TORSEMIDE 20 MG TAB PO SCH (10:17)
[2022-11-27] MEDS: LOSARTAN 50MG TABLET PO SCH (10:17)
[2022-11-27] MEDS: POLYVINYL ALCOHOL OPHTH SOLN 15ML (LIQUITEARS) OU SCH ×3 (10:17→20:48)
[2022-11-27] MEDS: ENOXAPARIN 40MG/0.4ML SYRINGE (J1650 PER 10MG) SC SCH (10:18)
[2022-11-27] MEDS: LIDOCAINE 5% (LIDODERM) PATCH TD SCH (11:54)
[2022-11-27] MEDS: DICLOFENAC EPOLAMINE 1.3% PATCH TOP SCH ×2 (11:55→20:47)
[2022-11-27 14:00] VITALS: BP 118/64
[2022-11-27 20:00] VITALS: BP 121/68
[2022-11-27] MEDS: METOPROLOL SUCC *XL* 12.5MG PER 1/2 TAB (TopROL *XL*) PO SCH (20:46)
[2022-11-27] MEDS: SENNA 8.6 MG TAB (SENOKOT) PO SCH (20:46)
[2022-11-27] MEDS: oxyBUTYnin *DITROPAN XL* 5 MG TABCR PO SCH (20:46)
[2022-11-27] MEDS: SIMVASTATIN 40 MG TAB PO SCH (20:46)
[2022-11-27] MEDS ORDERED: MYRBETRIQ 50 MG PO SCH (21:00)
[2022-11-28 06:00] VITALS: BP 125/70
[2022-11-28] MEDS: SINEMET 25-100 MG TAB PO SCH ×4 (06:15→18:18)
[2022-11-28] MEDS: ENTACAPONE 200MG TABLET (COMTAN) PO SCH ×4 (06:16→18:18)
[2022-11-28] MEDS: LEVOTHYROXINE 88MCG TABLET (0.088 MG) PO SCH (06:16)
[2022-11-28] MEDS: COMBIVENT RESPIMAT 100-20MCG INHALER 4GM INH SCH ×3 (07:10→20:19)
[2022-11-28] MEDS: ASPIRIN 81MG ENTERIC TABLET PO SCH (08:14)
[2022-11-28] MEDS: TORSEMIDE 20 MG TAB PO SCH (08:14)
[2022-11-28] MEDS: allopurinoL 300 MG TAB PO SCH (08:14)
[2022-11-28] MEDS: DOCUSATE SODIUM 100MG CAPSULE PO SCH ×2 (08:14→20:31)
[2022-11-28] MEDS: ACETAMINOPHEN 650MG ER TAB (TYLENOL ARTHRITIS) PO SCH ×3 (08:14→20:30)
[2022-11-28] MEDS: ENOXAPARIN 40MG/0.4ML SYRINGE (J1650 PER 10MG) SC SCH (08:14)
[2022-11-28] MEDS: PANTOPRAZOLE 40MG TAB (PROTONIX) PO SCH (08:14)
[2022-11-28] MEDS: LACTOBACILLUS ACIDOPHILUS CAP (BACID) PO SCH ×2 (08:14→18:18)
[2022-11-28] MEDS: GABAPENTIN 100 MG CAP PO SCH ×3 (08:14→20:30)
[2022-11-28] MEDS: LIDOCAINE 5% (LIDODERM) PATCH TD SCH (08:15)
[2022-11-28] MEDS: INSULIN LISPRO (NovoLOG) PER UNIT SC SCH ×4 (08:15→19:56)
[2022-11-28] MEDS: REMEDY PHYTOPLEX Z-GUARD PASTE 113GM TUBE (FROM STOREROOM PRODUCT) TOP SCH ×3 (08:16→20:32)
[2022-11-28] MEDS: POLYVINYL ALCOHOL OPHTH SOLN 15ML (LIQUITEARS) OU SCH ×3 (08:16→20:32)
[2022-11-28] MEDS: LOSARTAN 50MG TABLET PO SCH (08:16)
[2022-11-28] MEDS: DICLOFENAC EPOLAMINE 1.3% PATCH TOP SCH ×2 (08:16→20:30)
[2022-11-28 14:00] VITALS: BP 118/63
[2022-11-28 20:00] VITALS: BP 114/67
[2022-11-28] MEDS: METOPROLOL SUCC *XL* 12.5MG PER 1/2 TAB (TopROL *XL*) PO SCH (20:31)
[2022-11-28] MEDS: oxyBUTYnin *DITROPAN XL* 5 MG TABCR PO SCH (20:31)
[2022-11-28] MEDS: SENNA 8.6 MG TAB (SENOKOT) PO SCH (20:31)
[2022-11-28] MEDS: SIMVASTATIN 40 MG TAB PO SCH (20:31)
[2022-11-28] MEDS: MYRBETRIQ 50 MG PO SCH (20:31)
[2022-11-28] MEDS: ANALGESIC BALM CRM 3OZ TOP PRN (20:32)
[2022-11-28] MEDS ORDERED: ENTER DRUG NAME HERE (PATIENT'S OWN MED) PO SCH (21:00)
[2022-11-29] MEDS: LEVOTHYROXINE 75MCG TABLET (0.075MG) PO SCH (05:54)
[2022-11-29 06:00] VITALS: BP 140/76
[2022-11-29] MEDS: SINEMET 25-100 MG TAB PO SCH ×4 (06:45→18:29)
[2022-11-29] MEDS: ENTACAPONE 200MG TABLET (COMTAN) PO SCH ×4 (06:45→18:29)
[2022-11-29] MEDS: COMBIVENT RESPIMAT 100-20MCG INHALER 4GM INH SCH ×3 (07:31→21:38)
[2022-11-29] MEDS: TORSEMIDE 20 MG TAB PO SCH (08:57)
[2022-11-29] MEDS: INSULIN LISPRO (NovoLOG) PER UNIT SC SCH ×4 (08:57→21:00)
[2022-11-29] MEDS: DOCUSATE SODIUM 100MG CAPSULE PO SCH ×2 (08:57→20:58)
[2022-11-29] MEDS: LOSARTAN 50MG TABLET PO SCH (08:57)
[2022-11-29] MEDS: PANTOPRAZOLE 40MG TAB (PROTONIX) PO SCH (08:57)
[2022-11-29] MEDS: ACETAMINOPHEN 650MG ER TAB (TYLENOL ARTHRITIS) PO SCH ×3 (08:57→20:57)
[2022-11-29] MEDS: allopurinoL 300 MG TAB PO SCH (08:58)
[2022-11-29] MEDS: GABAPENTIN 100 MG CAP PO SCH ×3 (08:58→20:58)
[2022-11-29] MEDS: ASPIRIN 81MG ENTERIC TABLET PO SCH (08:58)
[2022-11-29] MEDS: DICLOFENAC EPOLAMINE 1.3% PATCH TOP SCH ×2 (08:58→20:57)
[2022-11-29] MEDS: LACTOBACILLUS ACIDOPHILUS CAP (BACID) PO SCH ×2 (08:58→18:29)
[2022-11-29] MEDS: ENOXAPARIN 40MG/0.4ML SYRINGE (J1650 PER 10MG) SC SCH (08:58)
[2022-11-29] MEDS: LIDOCAINE 5% (LIDODERM) PATCH TD SCH (08:59)
[2022-11-29] MEDS: POLYVINYL ALCOHOL OPHTH SOLN 15ML (LIQUITEARS) OU SCH ×3 (08:59→20:59)
[2022-11-29] MEDS: REMEDY PHYTOPLEX Z-GUARD PASTE 113GM TUBE (FROM STOREROOM PRODUCT) TOP SCH ×3 (09:00→21:00)
[2022-11-29 14:00] VITALS: BP 116/61
[2022-11-29 20:00] VITALS: BP 124/61
[2022-11-29] MEDS: METOPROLOL SUCC *XL* 12.5MG PER 1/2 TAB (TopROL *XL*) PO SCH (20:58)
[2022-11-29] MEDS: SENNA 8.6 MG TAB (SENOKOT) PO SCH (20:58)
[2022-11-29] MEDS: SIMVASTATIN 40 MG TAB PO SCH (20:58)
[2022-11-29] MEDS: oxyBUTYnin *DITROPAN XL* 5 MG TABCR PO SCH (20:59)
[2022-11-29] MEDS: MYRBETRIQ 50 MG PO SCH (20:59)
[2022-11-29] MEDS: ANALGESIC BALM CRM 3OZ TOP PRN (21:00)
[2022-11-30 06:00] VITALS: BP 146/77
[2022-11-30] MEDS: LEVOTHYROXINE 88MCG TABLET (0.088 MG) PO SCH (06:08)
[2022-11-30] MEDS: ENTACAPONE 200MG TABLET (COMTAN) PO SCH ×4 (07:14→18:36)
[2022-11-30] MEDS: SINEMET 25-100 MG TAB PO SCH ×4 (07:14→18:36)
[2022-11-30] MEDS: COMBIVENT RESPIMAT 100-20MCG INHALER 4GM INH SCH ×3 (07:21→19:44)
[2022-11-30] MEDS: ENOXAPARIN 40MG/0.4ML SYRINGE (J1650 PER 10MG) SC SCH (07:24)
[2022-11-30] MEDS: allopurinoL 300 MG TAB PO SCH (07:25)
[2022-11-30] MEDS: LACTOBACILLUS ACIDOPHILUS CAP (BACID) PO SCH ×2 (07:25→17:15)
[2022-11-30] MEDS: PANTOPRAZOLE 40MG TAB (PROTONIX) PO SCH (07:25)
[2022-11-30] MEDS: GABAPENTIN 100 MG CAP PO SCH ×3 (07:25→21:11)
[2022-11-30] MEDS: ASPIRIN 81MG ENTERIC TABLET PO SCH (07:25)
[2022-11-30] MEDS: ACETAMINOPHEN 650MG ER TAB (TYLENOL ARTHRITIS) PO SCH ×3 (07:25→21:12)
[2022-11-30] MEDS: TORSEMIDE 20 MG TAB PO SCH (07:25)
[2022-11-30] MEDS: DOCUSATE SODIUM 100MG CAPSULE PO SCH ×2 (07:25→21:11)
[2022-11-30] MEDS: LIDOCAINE 5% (LIDODERM) PATCH TD SCH (07:26)
[2022-11-30] MEDS: LOSARTAN 50MG TABLET PO SCH (07:26)
[2022-11-30] MEDS: INSULIN LISPRO (NovoLOG) PER UNIT SC SCH ×4 (07:26→21:00)
[2022-11-30] MEDS: DICLOFENAC EPOLAMINE 1.3% PATCH TOP SCH ×2 (07:27→21:12)
[2022-11-30] MEDS: POLYVINYL ALCOHOL OPHTH SOLN 15ML (LIQUITEARS) OU SCH ×3 (07:27→21:14)
[2022-11-30 07:43] LABS: BASO # 0.2 10^3/uL (0.0-0.2); BASO % 1.6 % (0.0-1.0); EOS # 0.5 10^3/uL (0.0-0.5); HEMATOCRIT 36.1 % (36.0-47.0); HEMOGLOBIN 11.6 g/dl (12.0-15.5); LYMPH # 2.5 10^3/uL (1.5-5.0); LYMPH % 26.2 % (24.0-44.0); MEAN CORPUSCULAR HEMOGLOBIN 29.7 pg (27.0-33.0); MEAN CORPUSCULAR HGB CONC 32.1 g/dl (32.0-36.5); MEAN CORPUSCULAR VOLUME 92.6 fl (80.0-96.0); MONO # 0.7 10^3/uL (0.0-0.8); MONO % 7.5 % (2.0-8.0); NEUTROPHILS # 5.6 10^3/uL (1.5-8.5); NEUTROPHILS % 59.3 % (36.0-66.0); PLATELET COUNT, AUTOMATED 378 10^3/uL (150-450); WHITE BLOOD COUNT 9.5 10^3/uL (4.0-10.0)
[2022-11-30 08:03] LABS: BLOOD UREA NITROGEN 16 MG/DL (9-23); CALCIUM LEVEL 8.6 MG/DL (8.3-10.6); CARBON DIOXIDE LEVEL 31 MMOL/L (20-31); CHLORIDE LEVEL 104 MMOL/L (98-107); CREATININE FOR GFR 0.77 MG/DL (0.55-1.30); GLOMERULAR FILTRATION RATE > 60.0 (>39); GLUCOSE, FASTING 130 MG/DL (74-106); POTASSIUM SERUM 3.7 MMOL/L (3.5-5.1); SODIUM LEVEL 138 MMOL/L (136-145)
[2022-11-30] MEDS: REMEDY PHYTOPLEX Z-GUARD PASTE 113GM TUBE (FROM STOREROOM PRODUCT) TOP SCH ×3 (08:58→21:00)
[2022-11-30 14:00] VITALS: BP 117/64
[2022-11-30 20:00] VITALS: BP 115/64
[2022-11-30] MEDS: oxyBUTYnin *DITROPAN XL* 5 MG TABCR PO SCH (21:10)
[2022-11-30] MEDS: MYRBETRIQ 50 MG PO SCH (21:10)
[2022-11-30] MEDS: METOPROLOL SUCC *XL* 12.5MG PER 1/2 TAB (TopROL *XL*) PO SCH (21:11)
[2022-11-30] MEDS: SENNA 8.6 MG TAB (SENOKOT) PO SCH (21:11)
[2022-11-30] MEDS: SIMVASTATIN 40 MG TAB PO SCH (21:11)
[2022-12-01] MEDS: LEVOTHYROXINE 75MCG TABLET (0.075MG) PO SCH (05:23)
[2022-12-01 06:00] VITALS: BP 146/70
[2022-12-01] MEDS: SINEMET 25-100 MG TAB PO SCH ×4 (06:34→18:28)
[2022-12-01] MEDS: ENTACAPONE 200MG TABLET (COMTAN) PO SCH ×4 (06:34→18:28)
[2022-12-01] MEDS: ONDANSETRON 4MG TAB PO PRN (08:10)
[2022-12-01] MEDS: ACETAMINOPHEN 650MG ER TAB (TYLENOL ARTHRITIS) PO SCH ×3 (08:11→19:56)
[2022-12-01] MEDS: DOCUSATE SODIUM 100MG CAPSULE PO SCH ×2 (08:11→19:57)
[2022-12-01] MEDS: allopurinoL 300 MG TAB PO SCH (08:11)
[2022-12-01] MEDS: TORSEMIDE 20 MG TAB PO SCH (08:11)
[2022-12-01] MEDS: ENOXAPARIN 40MG/0.4ML SYRINGE (J1650 PER 10MG) SC SCH (08:11)
[2022-12-01] MEDS: ASPIRIN 81MG ENTERIC TABLET PO SCH (08:11)
[2022-12-01] MEDS: GABAPENTIN 100 MG CAP PO SCH ×3 (08:11→19:57)
[2022-12-01] MEDS: PANTOPRAZOLE 40MG TAB (PROTONIX) PO SCH (08:11)
[2022-12-01] MEDS: LOSARTAN 50MG TABLET PO SCH (08:11)
[2022-12-01] MEDS: LACTOBACILLUS ACIDOPHILUS CAP (BACID) PO SCH ×2 (08:11→17:11)
[2022-12-01] MEDS: DICLOFENAC EPOLAMINE 1.3% PATCH TOP SCH ×2 (08:12→19:56)
[2022-12-01] MEDS: LIDOCAINE 5% (LIDODERM) PATCH TD SCH (08:12)
[2022-12-01] MEDS: INSULIN LISPRO (NovoLOG) PER UNIT SC SCH ×4 (08:12→19:58)
[2022-12-01] MEDS: REMEDY PHYTOPLEX Z-GUARD PASTE 113GM TUBE (FROM STOREROOM PRODUCT) TOP SCH ×3 (08:13→19:58)
[2022-12-01] MEDS: POLYVINYL ALCOHOL OPHTH SOLN 15ML (LIQUITEARS) OU SCH ×3 (08:13→19:57)
[2022-12-01] MEDS: COMBIVENT RESPIMAT 100-20MCG INHALER 4GM INH SCH ×3 (08:22→19:53)
[2022-12-01 14:00] VITALS: BP 136/70
[2022-12-01 19:56] VITALS: BP 118/62
[2022-12-01] MEDS: METOPROLOL SUCC *XL* 12.5MG PER 1/2 TAB (TopROL *XL*) PO SCH (19:56)
[2022-12-01] MEDS: MYRBETRIQ 50 MG PO SCH (19:56)
[2022-12-01] MEDS: SENNA 8.6 MG TAB (SENOKOT) PO SCH (19:57)
[2022-12-01] MEDS: SIMVASTATIN 40 MG TAB PO SCH (19:57)
[2022-12-01] MEDS: oxyBUTYnin *DITROPAN XL* 5 MG TABCR PO SCH (19:57)
[2022-12-02] MEDS: LEVOTHYROXINE 88MCG TABLET (0.088 MG) PO SCH (05:49)
[2022-12-02 06:00] VITALS: BP 133/69
[2022-12-02] MEDS: ENTACAPONE 200MG TABLET (COMTAN) PO SCH ×2 (06:33→11:34)
[2022-12-02] MEDS: SINEMET 25-100 MG TAB PO SCH ×2 (06:34→11:34)
[2022-12-02] MEDS: COMBIVENT RESPIMAT 100-20MCG INHALER 4GM INH SCH (07:58)
[2022-12-02] MEDS: INSULIN LISPRO (NovoLOG) PER UNIT SC SCH (08:32)
[2022-12-02] MEDS: ENOXAPARIN 40MG/0.4ML SYRINGE (J1650 PER 10MG) SC SCH (08:32)
[2022-12-02] MEDS: LACTOBACILLUS ACIDOPHILUS CAP (BACID) PO SCH (08:33)
[2022-12-02] MEDS: ASPIRIN 81MG ENTERIC TABLET PO SCH (08:33)
[2022-12-02] MEDS: TORSEMIDE 20 MG TAB PO SCH (08:33)
[2022-12-02] MEDS: PANTOPRAZOLE 40MG TAB (PROTONIX) PO SCH (08:33)
[2022-12-02] MEDS: ACETAMINOPHEN 650MG ER TAB (TYLENOL ARTHRITIS) PO SCH (08:33)
[2022-12-02] MEDS: allopurinoL 300 MG TAB PO SCH (08:34)
[2022-12-02] MEDS: GABAPENTIN 100 MG CAP PO SCH (08:34)
[2022-12-02] MEDS: DOCUSATE SODIUM 100MG CAPSULE PO SCH (08:34)
[2022-12-02] MEDS: LOSARTAN 50MG TABLET PO SCH (08:34)
[2022-12-02] MEDS: REMEDY PHYTOPLEX Z-GUARD PASTE 113GM TUBE (FROM STOREROOM PRODUCT) TOP SCH (08:35)
[2022-12-02] MEDS: DICLOFENAC EPOLAMINE 1.3% PATCH TOP SCH (08:35)
[2022-12-02] MEDS: POLYVINYL ALCOHOL OPHTH SOLN 15ML (LIQUITEARS) OU SCH (08:35)
[2022-12-02] MEDS: LIDOCAINE 5% (LIDODERM) PATCH TD SCH (08:35)
[2022-12-02] MEDS ORDERED: METO1TAB32 PO (09:33)
[2022-12-02] MEDS ORDERED: MYRB50TA PO (09:33)
[2022-12-02] MEDS ORDERED: ALLO300T2 PO (09:33)
[2022-12-02] MEDS ORDERED: GABA-1171 PO (09:33)
[2022-12-02] MEDS ORDERED: JANU25TA PO (09:33)
[2022-12-02] MEDS ORDERED: PANT-23 PO (09:33)
[2022-12-02] MEDS ORDERED: LEVAINH INH (09:33)
[2022-12-02] MEDS ORDERED: CARB-113 PO (09:33)
[2022-12-02] MEDS ORDERED: DITR5TAB PO (09:33)
[2022-12-02] MEDS ORDERED: ASPI81TAEC PO (09:33)
[2022-12-02] MEDS ORDERED: SYNT88TA2 PO (09:33)
[2022-12-02] MEDS ORDERED: SIMV40TA20 PO (09:33)
[2022-12-02] MEDS ORDERED: SYNT75TA PO (09:33)
[2022-12-02] MEDS ORDERED: LOSA50TA28 PO (09:33)
[2022-12-02] MEDS ORDERED: ENTA1TAB PO (09:33)
[2022-12-02] MEDS ORDERED: TORS20TA2 PO (09:33)
== END 2022-12-02 11:45 | disposition home health service (06) | DRG 57 ==
LOC: M PM&R 14:55
PROVIDERS: ADMIT Physical Medicine & Rehabilitation; ATTEND Physical Medicine & Rehabilitation
DX: G20 Parkinson's disease (principal); L03.115 Cellulitis of right lower limb; I50.30 Unspecified diastolic (congestive) heart failure; I13.0 Hypertensive heart and chronic kidney disease with heart failure and stage 1 through stage 4 chronic kidney disease, or unspecified chronic kidney disease; G47.33 Obstructive sleep apnea (adult) (pediatric); E11.42 Type 2 diabetes mellitus with diabetic polyneuropathy; K76.0 Fatty (change of) liver, not elsewhere classified; K42.9 Umbilical hernia without obstruction or gangrene; E11.621 Type 2 diabetes mellitus with foot ulcer; L08.9 Local infection of the skin and subcutaneous tissue, unspecified; M51.16 Intervertebral disc disorders with radiculopathy, lumbar region; I25.2 Old myocardial infarction; E03.9 Hypothyroidism, unspecified; N18.2 Chronic kidney disease, stage 2 (mild); N32.81 Overactive bladder; E78.5 Hyperlipidemia, unspecified; M10.9 Gout, unspecified; L97.519 Non-pressure chronic ulcer of other part of right foot with unspecified severity; I27.20 Pulmonary hypertension, unspecified; M48.061 Spinal stenosis, lumbar region without neurogenic claudication; Z74.09 Other reduced mobility; Z74.1 Need for assistance with personal care; Z66 Do not resuscitate; Z98.49 Cataract extraction status, unspecified eye; Z79.2 Long term (current) use of antibiotics; Z79.82 Long term (current) use of aspirin; Z79.890 Hormone replacement therapy; Z79.899 Other long term (current) drug therapy; Z88.8 Allergy status to other drugs, medicaments and biological substances; Z90.79 Acquired absence of other genital organ(s)

== ENCOUNTER → 2023-02-05 | Outpatient (REF) | payer MEDICARE, OTHER ==
[~2023-02-05] MED LIST changes: -COZA50TA PO; +DITR5TAB PO; +GABA-1171 PO; +JANU25TA PO; +LOSA-528 PO
== END ==
LOC: M LAB REF 16:15
PROVIDERS: ATTEND Family Medicine
DX: N39.0 Urinary tract infection, site not specified (principal)

== ENCOUNTER 2023-10-02 14:15 | Inpatient (IN) | payer MEDICARE, OTHER ==
[~2023-10-02] VITALS: Ht 172.7 cm; Wt 119.0 kg
[~2023-10-02 14:15] MED LIST changes: +CEFD1CAP9 PO; -CEFD300C41 PO; -MIRA1POW3 PO; +MIRA33506 PO
[2023-10-02] MEDS: NS 1,000 ML IV SCH (15:21)
[2023-10-02 15:55] LABS: BASO # 0.1 10^3/uL (0.0-0.2); BASO % 0.4 % (0.0-1.0); EOS # 0.1 10^3/uL (0.0-0.5); EOS % 0.4 % (0.0-3.0); HEMATOCRIT 36.9 % (36.0-47.0); HEMOGLOBIN 12.3 g/dl (12.0-15.5); LYMPH % 14.7 % (24.0-44.0); MEAN CORPUSCULAR HEMOGLOBIN 30.4 pg (27.0-33.0); MEAN CORPUSCULAR HGB CONC 33.3 g/dl (32.0-36.5); MEAN CORPUSCULAR VOLUME 91.1 fl (80.0-96.0); MONO # 0.9 10^3/uL (0.0-0.8); MONO % 6.8 % (2.0-8.0); NEUTROPHILS # 10.6 10^3/uL (1.5-8.5); NEUTROPHILS % 77.4 % (36.0-66.0); PLATELET COUNT, AUTOMATED 277 10^3/uL (150-450); RED BLOOD COUNT 4.05 10^6/uL (4.00-5.40); WHITE BLOOD COUNT 13.7 10^3/uL (4.0-10.0)
[2023-10-02 16:19] LABS: INR 1.19; PROTHROMBIN TIME 14.8 SECONDS (12.5-14.5)
[2023-10-02 16:21] LABS: CPK CREATINE PHOSPHOKINASE 63 U/L (34-145)
[2023-10-02 16:22] LABS: ALBUMIN 3.2 G/DL (3.2-5.2); ALKALINE PHOSPHATASE 67 U/L (46-116); ALT/SGPT < 9 U/L (7.0-40); AST/SGOT 10 U/L (<34); BILIRUBIN,DIRECT 0.2 MG/DL (<0.4); BILIRUBIN,TOTAL 0.4 MG/DL (0.3-1.2); BLOOD UREA NITROGEN 21 MG/DL (9-23); CALCIUM LEVEL 9.3 MG/DL (8.3-10.6); CARBON DIOXIDE LEVEL 26 MMOL/L (20-31); CHLORIDE LEVEL 103 MMOL/L (98-107); CK-MB VALUE MASS < 1.0 NG/ML (<3.6); GLOMERULAR FILTRATION RATE > 60.0 (>39); GLUCOSE, FASTING 102 MG/DL (74-106); MB/CK RELATIVE INDEX 1.58 (< OR =4); POTASSIUM SERUM 3.8 MMOL/L (3.5-5.1); SODIUM LEVEL 135 MMOL/L (136-145)
[2023-10-02 16:26] LABS: ERYTHROCYTE SEDIMENTATION RATE 117 mm/hr (0-30)
[2023-10-02 16:29] LABS: HEMOGLOBIN A1c 6.8 % (4.0-6.0)
[2023-10-02 16:33] LABS: PROCALCITONIN 0.36 ng/ml
[2023-10-02 16:34] LABS: RSV AMPLIFICATION NEGATIVE (NEGATIVE)
[2023-10-02] MEDS: CEFEPIME HCL 1 GM in D5W MINI-BAG PLUS 50 ML IV ONE (16:38)
[2023-10-02] MEDS ORDERED: PERCOCET 5MG/325MG TAB PO PRN (17:35)
[2023-10-02] MEDS ORDERED: GLUCAGON INJ 1MG VIAL SC PRN (17:35)
[2023-10-02] MEDS ORDERED: DEXTROSE 50% 50ML SYRINGE IV PRN (17:35)
[2023-10-02] MEDS ORDERED: GLUCOSE 4GM CHEW TABLET PO PRN (17:35)
[2023-10-02] MEDS ORDERED: RYTA1CAP PO (17:42)
[2023-10-02] MEDS ORDERED: OXYB-54 PO (17:42)
[2023-10-02] MEDS ORDERED: LEVO88TA3 PO (17:42)
[2023-10-02] MEDS ORDERED: COEN100C4 PO (17:42)
[2023-10-02] MEDS ORDERED: D-MA50PO PO (18:00)
[2023-10-02] MEDS ORDERED: POLY17PO18 PO (18:00)
[2023-10-02] MEDS ORDERED: SIMV40TA20 PO (18:00)
[2023-10-02] MEDS ORDERED: ASPI81TAEC PO (18:00)
[2023-10-02] MEDS ORDERED: JANU25TA PO (18:00)
[2023-10-02] MEDS ORDERED: MM S100C PO (18:00)
[2023-10-02] MEDS ORDERED: METO1TAB32 PO (18:05)
[2023-10-02] MEDS ORDERED: HOME MED LIST COMPLETE! XX SCH (18:10)
[2023-10-02 20:45] VITALS: BP 147/83; TEMP 97.9; O2SAT 96
[2023-10-02] MEDS: INSULIN LISPRO (NovoLOG) PER UNIT SC SCH (21:00)
[2023-10-02] MEDS: HEPARIN SOD (PORCINE) 5000UNITS/ML 1ML VIAL/SYRINGE SC SCH (21:01)
[2023-10-02] MEDS: VANCOMYCIN HCL 1,000 MG, VIAL MATE ADAPTER 1 EACH in D5W 250 ML IV ONE (21:02)
[2023-10-02] MEDS: VANCOMYCIN HCL 1,000 MG, VIAL MATE ADAPTER 1 EACH in D5W 250 ML IV SCH (22:08)
[2023-10-02] MEDS ORDERED: PILL CUTTER 1 EACH XX PRN (23:10)
[2023-10-02] MEDS: PIPERACILLIN/TAZOBACTAM SOD 3.375 GM in D5W MINI-BAG PLUS 50 ML IV SCH (23:36)
[2023-10-03] MEDS: UNRESOLVED PATIENT OWN MED ORDER XX SCH (00:01)
[2023-10-03] MEDS: SIMVASTATIN 40 MG TAB PO SCH (00:03)
[2023-10-03] MEDS: ACETAMINOPHEN 650MG ER TAB (TYLENOL ARTHRITIS) PO SCH (00:03)
[2023-10-03] MEDS: oxyBUTYnin *DITROPAN XL* 5 MG TABCR PO SCH (00:04)
[2023-10-03] MEDS: METOPROLOL SUCC *XL* 25MG TAB (TopROL *XL*) PO SCH (00:04)
[2023-10-03] MEDS: PRAMIPEXOLE 1 MG TAB PO SCH (00:05)
[2023-10-03] MEDS: LEVOTHYROXINE 88MCG TABLET (0.088 MG) PO SCH (05:16)
[2023-10-03 06:00] VITALS: BP 142/78; TEMP 97.3; O2SAT 97
[2023-10-03 06:49] LABS: HEMOGLOBIN 11.2 g/dl (12.0-15.5); MEAN CORPUSCULAR HEMOGLOBIN 30.2 pg (27.0-33.0); MEAN CORPUSCULAR HGB CONC 32.9 g/dl (32.0-36.5); MEAN CORPUSCULAR VOLUME 91.6 fl (80.0-96.0); PLATELET COUNT, AUTOMATED 244 10^3/uL (150-450); RED BLOOD COUNT 3.71 10^6/uL (4.00-5.40); WHITE BLOOD COUNT 11.1 10^3/uL (4.0-10.0)
[2023-10-03 07:12] LABS: BLOOD UREA NITROGEN 16 MG/DL (9-23); CALCIUM LEVEL 8.6 MG/DL (8.3-10.6); CARBON DIOXIDE LEVEL 27 MMOL/L (20-31); CHLORIDE LEVEL 106 MMOL/L (98-107); CREATININE FOR GFR 0.79 MG/DL (0.55-1.30); GLOMERULAR FILTRATION RATE > 60.0 (>39); GLUCOSE, FASTING 110 MG/DL (74-106); POTASSIUM SERUM 3.6 MMOL/L (3.5-5.1); SODIUM LEVEL 137 MMOL/L (136-145)
[2023-10-03] MEDS: INSULIN LISPRO (NovoLOG) PER UNIT SC SCH (07:57)
[2023-10-03] MEDS: TORSEMIDE 20 MG TAB PO SCH (08:03)
[2023-10-03] MEDS: VITAMIN D 1,000 INTERNATIONAL UNITS TABLET PO SCH (08:03)
[2023-10-03] MEDS: LOSARTAN 25 MG TAB PO SCH (08:04)
[2023-10-03] MEDS: MIRALAX *UNIT DOSE* 17GM PACKET PO SCH (08:04)
[2023-10-03] MEDS: allopurinoL 300 MG TAB PO SCH (08:04)
[2023-10-03] MEDS: ENTACAPONE 200MG TABLET (COMTAN) PO SCH (08:04)
[2023-10-03] MEDS: CYANOCOBALAMIN 500 MCG TAB PO SCH (08:04)
[2023-10-03] MEDS: ASPIRIN 81MG ENTERIC TABLET PO SCH (08:04)
[2023-10-03] MEDS: DOCUSATE SODIUM 100MG CAPSULE PO SCH (08:04)
[2023-10-03] MEDS: CO-ENZYME Q10 50 MG CAP PO SCH (08:04)
[2023-10-03] MEDS: PANTOPRAZOLE 40MG TAB (PROTONIX) PO SCH (08:04)
[2023-10-03] MEDS ORDERED: SITagliptin 50 MG TAB (JANUVIA) PO SCH (09:00)
[2023-10-03] MEDS ORDERED: ENTER DRUG NAME HERE (PATIENT'S OWN MED) PO SCH ×2 (09:00)
[2023-10-03] MEDS: MYRBETRIQ 50 MG PO SCH (12:27)
[2023-10-03] MEDS: RYTARY PO SCH (12:29)
[2023-10-03 15:36] VITALS: BP 140/81; TEMP 97.9; O2SAT 97
[2023-10-03 22:00] VITALS: BP 111/75; TEMP 98.1; O2SAT 98
[2023-10-04 06:00] VITALS: BP 132/76; TEMP 97.9; O2SAT 96
[2023-10-04] MEDS: LEVOTHYROXINE 75MCG TABLET (0.075MG) PO SCH (06:07)
[2023-10-04 08:24] LABS: BASO # 0.1 10^3/uL (0.0-0.2); BASO % 0.9 % (0.0-1.0); EOS # 0.3 10^3/uL (0.0-0.5); EOS % 2.7 % (0.0-3.0); HEMATOCRIT 35.6 % (36.0-47.0); HEMOGLOBIN 11.7 g/dl (12.0-15.5); LYMPH # 2.2 10^3/uL (1.5-5.0); LYMPH % 22.8 % (24.0-44.0); MEAN CORPUSCULAR HEMOGLOBIN 29.7 pg (27.0-33.0); MEAN CORPUSCULAR HGB CONC 32.9 g/dl (32.0-36.5); MEAN CORPUSCULAR VOLUME 90.4 fl (80.0-96.0); MONO # 0.7 10^3/uL (0.0-0.8); MONO % 6.8 % (2.0-8.0); NEUTROPHILS # 6.5 10^3/uL (1.5-8.5); PLATELET COUNT, AUTOMATED 261 10^3/uL (150-450); RED BLOOD COUNT 3.94 10^6/uL (4.00-5.40); WHITE BLOOD COUNT 9.8 10^3/uL (4.0-10.0)
[2023-10-04 08:53] LABS: BLOOD UREA NITROGEN 17 MG/DL (9-23); CALCIUM LEVEL 8.6 MG/DL (8.3-10.6); CARBON DIOXIDE LEVEL 26 MMOL/L (20-31); CHLORIDE LEVEL 107 MMOL/L (98-107); CREATININE FOR GFR 0.85 MG/DL (0.55-1.30); GLOMERULAR FILTRATION RATE > 60.0 (>39); GLUCOSE, FASTING 154 MG/DL (74-106); POTASSIUM SERUM 3.5 MMOL/L (3.5-5.1); SODIUM LEVEL 137 MMOL/L (136-145)
[2023-10-04] MEDS ORDERED: VANCOMYCIN HCL 750 MG, VIAL MATE ADAPTER 1 EACH in D5W 250 ML IV SCH (10:00)
[2023-10-04 14:30] VITALS: BP 142/70; TEMP 97.5; O2SAT 96
[2023-10-04 22:00] VITALS: BP 141/76; TEMP 97.5; O2SAT 95
[2023-10-05 05:15] VITALS: BP 167/93; TEMP 97.3; O2SAT 96
[2023-10-05 06:15] LABS: BASO # 0.1 10^3/uL (0.0-0.2); EOS # 0.4 10^3/uL (0.0-0.5); EOS % 3.8 % (0.0-3.0); HEMATOCRIT 38.3 % (36.0-47.0); HEMOGLOBIN 12.5 g/dl (12.0-15.5); LYMPH # 3.3 10^3/uL (1.5-5.0); LYMPH % 30.7 % (24.0-44.0); MEAN CORPUSCULAR HEMOGLOBIN 30.1 pg (27.0-33.0); MEAN CORPUSCULAR HGB CONC 32.6 g/dl (32.0-36.5); MEAN CORPUSCULAR VOLUME 92.3 fl (80.0-96.0); MONO # 0.7 10^3/uL (0.0-0.8); MONO % 6.7 % (2.0-8.0); NEUTROPHILS # 6.1 10^3/uL (1.5-8.5); NEUTROPHILS % 56.3 % (36.0-66.0); PLATELET COUNT, AUTOMATED 297 10^3/uL (150-450); RED BLOOD COUNT 4.15 10^6/uL (4.00-5.40); WHITE BLOOD COUNT 10.8 10^3/uL (4.0-10.0)
[2023-10-05 06:24] LABS: BLOOD UREA NITROGEN 14 MG/DL (9-23); CALCIUM LEVEL 8.7 MG/DL (8.3-10.6); CARBON DIOXIDE LEVEL 27 MMOL/L (20-31); CHLORIDE LEVEL 109 MMOL/L (98-107); CREATININE FOR GFR 0.75 MG/DL (0.55-1.30); GLOMERULAR FILTRATION RATE > 60.0 (>39); GLUCOSE, FASTING 134 MG/DL (74-106); POTASSIUM SERUM 3.7 MMOL/L (3.5-5.1); SODIUM LEVEL 139 MMOL/L (136-145)
[2023-10-05 09:25] VITALS: BP 167/93
[2023-10-05] MEDS ORDERED: AMOX875T2 PO (10:17)
[2023-10-05 11:15] VITALS: BP 151/88
== END 2023-10-05 13:40 | disposition home or self-care (01) | DRG 623 ==
LOC: EDBD 14:15 → M ED 14:15 → M ED INP 17:21 → M MS5PR 20:32
PROVIDERS: ADMIT Internal Medicine; ATTEND Internal Medicine
PROC: 0JBQ0ZZ Excision of Right Foot Subcutaneous Tissue and Fascia, Open Approach (ICD-10-PCS; principal; 2023-10-03)
DX: E11.621 Type 2 diabetes mellitus with foot ulcer (principal); I50.32 Chronic diastolic (congestive) heart failure; L03.115 Cellulitis of right lower limb; L97.513 Non-pressure chronic ulcer of other part of right foot with necrosis of muscle; G20.A1 Parkinson's disease without dyskinesia, without mention of fluctuations; I11.0 Hypertensive heart disease with heart failure; L73.9 Follicular disorder, unspecified; E03.9 Hypothyroidism, unspecified; N39.41 Urge incontinence; E78.5 Hyperlipidemia, unspecified; G47.33 Obstructive sleep apnea (adult) (pediatric); M51.36 Other intervertebral disc degeneration, lumbar region; M20.11 Hallux valgus (acquired), right foot; E66.01 Morbid (severe) obesity due to excess calories; M20.41 Other hammer toe(s) (acquired), right foot; K21.9 Gastro-esophageal reflux disease without esophagitis; Z66 Do not resuscitate; Z68.39 Body mass index [BMI] 39.0-39.9, adult; Z98.49 Cataract extraction status, unspecified eye; Z79.82 Long term (current) use of aspirin; Z79.890 Hormone replacement therapy; Z79.899 Other long term (current) drug therapy; Z88.8 Allergy status to other drugs, medicaments and biological substances

== ENCOUNTER 2023-11-22 18:05 | Inpatient (IN) | payer MEDICARE, OTHER ==
[~2023-11-22] VITALS: Ht 172.7 cm; Wt 120.0 kg
[~2023-11-22 18:05] MED LIST changes: +COEN100C4 PO; +D-MA50PO PO; +LEVO88TA3 PO; +MM S100C PO; +POLY17PO18 PO; +RYTA1CAP PO; -SENN1TAB41 PO; +SENN1TAB85 PO
[2023-11-22] MEDS ORDERED: ACETAMINOPHEN TAB 650MG DOSE (2X325MG) PO ONE (18:35)
[2023-11-22 18:46] LABS: VENOUS BASE EXCESS -0.9 (-2.0-2.0); VENOUS HCO3 22.6 MMOL/L (23.0-27.0); VENOUS O2 SATURATION 94.7 % (60.0-80.0); VENOUS PARTIAL PRESSURE CO2 33.9 mmHg (38.0-50.0); VENOUS PH 7.441 UNITS (7.330-7.430); VENOUS STANDARD HCO3 23.6 MMOL/L; VENOUS TOTAL CO2 23.6 MMOL/L (24.0-28.0)
[2023-11-22 18:57] LABS: BASO # 0.1 10^3/uL (0.0-0.2); BASO % 0.5 % (0.0-1.0); EOS % 0.2 % (0.0-3.0); HEMATOCRIT 35.8 % (36.0-47.0); HEMOGLOBIN 12.1 g/dl (12.0-15.5); LYMPH # 0.8 10^3/uL (1.5-5.0); LYMPH % 3.8 % (24.0-44.0); MEAN CORPUSCULAR HEMOGLOBIN 30.8 pg (27.0-33.0); MEAN CORPUSCULAR HGB CONC 33.8 g/dl (32.0-36.5); MEAN CORPUSCULAR VOLUME 91.1 fl (80.0-96.0); MONO # 1.3 10^3/uL (0.0-0.8); MONO % 5.8 % (2.0-8.0); NEUTROPHILS # 19.8 10^3/uL (1.5-8.5); PLATELET COUNT, AUTOMATED 233 10^3/uL (150-450); RED BLOOD COUNT 3.93 10^6/uL (4.00-5.40); WHITE BLOOD COUNT 22.2 10^3/uL (4.0-10.0)
[2023-11-22] MEDS: NS 1,000 ML IV ONE (18:59)
[2023-11-22 19:10] LABS: INR 1.12; PARTIAL THROMBOPLASTIN TIME 27.9 SECONDS (24.8-34.2); PROTHROMBIN TIME 14.1 SECONDS (12.5-14.5)
[2023-11-22 19:14] LABS: CK-MB VALUE MASS < 1.0 NG/ML (<3.6)
[2023-11-22 19:16] LABS: AMYLASE 33 U/L (30-118)
[2023-11-22 19:17] LABS: ALBUMIN 3.5 G/DL (3.2-5.2); ALKALINE PHOSPHATASE 59 U/L (46-116); ALT/SGPT < 9 U/L (7.0-40); AST/SGOT 12 U/L (<34); BILIRUBIN,DIRECT 0.2 MG/DL (<0.4); BILIRUBIN,TOTAL 0.6 MG/DL (0.3-1.2); BLOOD UREA NITROGEN 27 MG/DL (9-23); CALCIUM LEVEL 8.7 MG/DL (8.3-10.6); CARBON DIOXIDE LEVEL 24 MMOL/L (20-31); CHLORIDE LEVEL 104 MMOL/L (98-107); CREATININE FOR GFR 0.86 MG/DL (0.55-1.30); GLOMERULAR FILTRATION RATE > 60.0 (>39); GLUCOSE, FASTING 176 MG/DL (74-106); POTASSIUM SERUM 3.5 MMOL/L (3.5-5.1); SODIUM LEVEL 136 MMOL/L (136-145); TOTAL PROTEIN 7.7 G/DL (5.7-8.2)
[2023-11-22 19:23] LABS: PROCALCITONIN 0.54 ng/ml
[2023-11-22 19:28] LABS: CPK CREATINE PHOSPHOKINASE 49 U/L (34-145); MB/CK RELATIVE INDEX 2.04 (< OR =4)
[2023-11-22 20:23] LABS: APPEARANCE, URINE CLEAR (CLEAR); BACTERIA, URINE AUTO 3+ (NEGATIVE); BILIRUBIN, URINE AUTO NEGATIVE (NEGATIVE); BLOOD, URINE BLOOD NEGATIVE (NEGATIVE); COLOR, URINE AMBER (YELLOW); GLUCOSE, URINE (UA) AUTO NEGATIVE (NEGATIVE); KETONE, URINE AUTO TRACE mg/dL (NEGATIVE); LEUKOCYTE ESTERASE, URINE AUTO NEGATIVE (NEGATIVE); MUCUS, URINE SMALL (NEGATIVE); NITRITE, URINE AUTO POSITIVE (NEGATIVE); PROTEIN, URINE AUTO NEGATIVE (NEGATIVE); RBC, URINE AUTO 2 /HPF (0-3); SPECIFIC GRAVITY URINE AUTO 1.015 (1.002-1.035); SQUAMOUS EPITHELIAL CELL UR AU 1 /HPF (0-6); UROBILINOGEN, URINE AUTO 0.2 mg/dL (0.0-2.0); WBC, URINE AUTO 1 /HPF (0-3)
[2023-11-22 20:29] LABS: CK-MB VALUE MASS < 1.0 NG/ML (<3.6)
[2023-11-22 20:33] LABS: CPK CREATINE PHOSPHOKINASE 52 U/L (34-145); MB/CK RELATIVE INDEX 1.92 (< OR =4)
[2023-11-22] MEDS: VANCOMYCIN HCL 1,000 MG, VIAL MATE ADAPTER 1 EACH in D5W 250 ML IV ONE (21:22)
[2023-11-22] MEDS ORDERED: GLUCOSE 4GM CHEW TABLET PO PRN (22:45)
[2023-11-22] MEDS ORDERED: DEXTROSE 50% 50ML SYRINGE IV PRN (22:45)
[2023-11-22] MEDS ORDERED: GLUCAGON INJ 1MG VIAL SC PRN (22:45)
[2023-11-22] MEDS: CEFEPIME HCL 1 GM in D5W MINI-BAG PLUS 50 ML IV ONE (23:18)
[2023-11-22] MEDS ORDERED: MULT-40 PO (23:28)
[2023-11-22] MEDS ORDERED: MYRB25TA PO (23:28)
[2023-11-22] MEDS ORDERED: D-MA500C2 PO (23:28)
[2023-11-22] MEDS ORDERED: LOSA50TA28 PO (23:28)
[2023-11-22] MEDS ORDERED: HOME MED LIST COMPLETE! XX SCH (23:30)
[2023-11-23] MEDS: KCL 20MEQ in NS 1000ML 1,000 ML IV SCH (01:50)
[2023-11-23] MEDS: VANCOMYCIN HCL 1,000 MG, VIAL MATE ADAPTER 1 EACH in D5W 250 ML IV SCH (02:35)
[2023-11-23 05:08] LABS: HEMATOCRIT 34.4 % (36.0-47.0); HEMOGLOBIN 11.4 g/dl (12.0-15.5); MEAN CORPUSCULAR HEMOGLOBIN 30.3 pg (27.0-33.0); MEAN CORPUSCULAR HGB CONC 33.1 g/dl (32.0-36.5); MEAN CORPUSCULAR VOLUME 91.5 fl (80.0-96.0); PLATELET COUNT, AUTOMATED 208 10^3/uL (150-450); RED BLOOD COUNT 3.76 10^6/uL (4.00-5.40); WHITE BLOOD COUNT 15.1 10^3/uL (4.0-10.0)
[2023-11-23 05:43] LABS: ALBUMIN 3.1 G/DL (3.2-5.2); ALKALINE PHOSPHATASE 56 U/L (46-116); ALT/SGPT 9 U/L (7.0-40); AST/SGOT 15 U/L (<34); BILIRUBIN,TOTAL 0.6 MG/DL (0.3-1.2); BLOOD UREA NITROGEN 21 MG/DL (9-23); CALCIUM LEVEL 8.6 MG/DL (8.3-10.6); CARBON DIOXIDE LEVEL 24 MMOL/L (20-31); CHLORIDE LEVEL 108 MMOL/L (98-107); CREATININE FOR GFR 0.79 MG/DL (0.55-1.30); GLOMERULAR FILTRATION RATE > 60.0 (>39); GLUCOSE, FASTING 157 MG/DL (74-106); MAGNESIUM LEVEL 1.6 MG/DL (1.8-2.4); POTASSIUM SERUM 3.5 MMOL/L (3.5-5.1); SODIUM LEVEL 136 MMOL/L (136-145); TOTAL PROTEIN 7.2 G/DL (5.7-8.2)
[2023-11-23] MEDS ORDERED: SINEMET 25-100 MG TAB PO SCH (06:00)
[2023-11-23] MEDS: PIPERACILLIN/TAZOBACTAM SOD 4.5 GM in D5W MINI-BAG PLUS 50 ML IV SCH (06:35)
[2023-11-23] MEDS: LEVOTHYROXINE 75MCG TABLET (0.075MG) PO SCH (06:35)
[2023-11-23] MEDS: CYANOCOBALAMIN 500 MCG TAB PO SCH (08:22)
[2023-11-23] MEDS: ENOXAPARIN 40MG/0.4ML SYRINGE (J1650 PER 10MG) SC SCH (08:23)
[2023-11-23] MEDS: PANTOPRAZOLE 40MG TAB (PROTONIX) PO SCH (08:23)
[2023-11-23] MEDS: DOCUSATE SODIUM 100MG CAPSULE PO SCH (08:23)
[2023-11-23] MEDS: VITAMIN D 1,000 INTERNATIONAL UNITS TABLET PO SCH (08:23)
[2023-11-23] MEDS: ASPIRIN 81MG ENTERIC TABLET PO SCH (08:25)
[2023-11-23] MEDS: allopurinoL 300 MG TAB PO SCH (08:25)
[2023-11-23] MEDS: MAG SULF 1GM/100ML (MAG RUN) 1 GM in IV 1 EA IV ONE (08:25)
[2023-11-23] MEDS: LOSARTAN 50MG TABLET PO SCH (08:25)
[2023-11-23] MEDS: MIRALAX *UNIT DOSE* 17GM PACKET PO SCH (08:25)
[2023-11-23] MEDS ORDERED: TORSEMIDE 20 MG TAB PO SCH (09:00)
[2023-11-23] MEDS: INSULIN LISPRO (NovoLOG) PER UNIT SC SCH ×2 (09:12→20:35)
[2023-11-23] MEDS: ACETAMINOPHEN TAB 650MG DOSE (2X325MG) PO PRN (09:17)
[2023-11-23] MEDS: CO-ENZYME Q10 50 MG CAP PO SCH (10:19)
[2023-11-23] MEDS: PRAMIPEXOLE 1 MG TAB PO SCH (10:19)
[2023-11-23] MEDS: ENTACAPONE 200MG TABLET (COMTAN) PO SCH (10:19)
[2023-11-23 12:30] VITALS: BP 127/69; TEMP 98.1; O2SAT 93
[2023-11-23 14:00] VITALS: BP 122/71; TEMP 98.1; O2SAT 96
[2023-11-23] MEDS: SIMVASTATIN 40 MG TAB PO SCH (20:21)
[2023-11-23] MEDS: oxyBUTYnin *DITROPAN XL* 5 MG TABCR PO SCH (20:23)
[2023-11-23] MEDS: METOPROLOL SUCC *XL* 25MG TAB (TopROL *XL*) PO SCH (20:23)
[2023-11-23 20:27] VITALS: BP 131/72; TEMP 98.2; O2SAT 93
[2023-11-24 05:07] VITALS: BP 132/82; TEMP 98.2; O2SAT 96
[2023-11-24] MEDS: LEVOTHYROXINE 88MCG TABLET (0.088 MG) PO SCH (05:30)
[2023-11-24 06:22] LABS: BASO # 0.1 10^3/uL (0.0-0.2); BASO % 0.8 % (0.0-1.0); EOS # 0.1 10^3/uL (0.0-0.5); EOS % 0.7 % (0.0-3.0); HEMATOCRIT 34.9 % (36.0-47.0); HEMOGLOBIN 11.4 g/dl (12.0-15.5); LYMPH # 1.2 10^3/uL (1.5-5.0); LYMPH % 16.2 % (24.0-44.0); MEAN CORPUSCULAR HEMOGLOBIN 30.1 pg (27.0-33.0); MEAN CORPUSCULAR HGB CONC 32.7 g/dl (32.0-36.5); MEAN CORPUSCULAR VOLUME 92.1 fl (80.0-96.0); MONO # 0.7 10^3/uL (0.0-0.8); MONO % 9.3 % (2.0-8.0); NEUTROPHILS # 5.4 10^3/uL (1.5-8.5); NEUTROPHILS % 72.7 % (36.0-66.0); PLATELET COUNT, AUTOMATED 191 10^3/uL (150-450); RED BLOOD COUNT 3.79 10^6/uL (4.00-5.40); WHITE BLOOD COUNT 7.4 10^3/uL (4.0-10.0)
[2023-11-24 06:54] LABS: BLOOD UREA NITROGEN 13 MG/DL (9-23); CALCIUM LEVEL 8.3 MG/DL (8.3-10.6); CARBON DIOXIDE LEVEL 26 MMOL/L (20-31); CHLORIDE LEVEL 116 MMOL/L (98-107); CREATININE FOR GFR 0.84 MG/DL (0.55-1.30); GLOMERULAR FILTRATION RATE > 60.0 (>39); GLUCOSE, FASTING 126 MG/DL (74-106); POTASSIUM SERUM 3.5 MMOL/L (3.5-5.1); SODIUM LEVEL 137 MMOL/L (136-145)
[2023-11-24 14:00] VITALS: BP 135/78; TEMP 98.6; O2SAT 96
[2023-11-24 20:10] VITALS: BP 146/89; TEMP 97.9; O2SAT 91
[2023-11-24 20:11] VITALS: TEMP 99.8
[2023-11-24 23:55] VITALS: TEMP 98
[2023-11-25 00:07] VITALS: O2SAT 95
[2023-11-25 06:00] VITALS: BP 138/76; TEMP 98.1; O2SAT 95
[2023-11-25 06:21] LABS: BASO # 0.1 10^3/uL (0.0-0.2); BASO % 0.9 % (0.0-1.0); EOS # 0.3 10^3/uL (0.0-0.5); EOS % 3.1 % (0.0-3.0); HEMATOCRIT 33.1 % (36.0-47.0); HEMOGLOBIN 11.3 g/dl (12.0-15.5); LYMPH # 1.7 10^3/uL (1.5-5.0); MEAN CORPUSCULAR HGB CONC 34.1 g/dl (32.0-36.5); MEAN CORPUSCULAR VOLUME 90.9 fl (80.0-96.0); MONO # 0.9 10^3/uL (0.0-0.8); MONO % 10.4 % (2.0-8.0); NEUTROPHILS # 5.2 10^3/uL (1.5-8.5); NEUTROPHILS % 64.4 % (36.0-66.0); PLATELET COUNT, AUTOMATED 189 10^3/uL (150-450); RED BLOOD COUNT 3.64 10^6/uL (4.00-5.40); WHITE BLOOD COUNT 8.1 10^3/uL (4.0-10.0)
[2023-11-25 06:52] LABS: BLOOD UREA NITROGEN 11 MG/DL (9-23); CARBON DIOXIDE LEVEL 25 MMOL/L (20-31); CHLORIDE LEVEL 108 MMOL/L (98-107); CREATININE FOR GFR 0.71 MG/DL (0.55-1.30); GLOMERULAR FILTRATION RATE > 60.0 (>39); GLUCOSE, FASTING 140 MG/DL (74-106); POTASSIUM SERUM 3.6 MMOL/L (3.5-5.1); SODIUM LEVEL 136 MMOL/L (136-145)
[2023-11-25] MEDS: DOXYCYCLINE HYCLATE 100MG TABLET PO SCH (08:27)
[2023-11-25] MEDS: CEFDINIR 300 MG CAP (OMNICEF) PO SCH (08:27)
[2023-11-25 14:00] VITALS: BP 124/72; TEMP 97.9; O2SAT 93
[2023-11-25 21:00] VITALS: BP 146/79; TEMP 98.1; O2SAT 95
[2023-11-26 06:00] VITALS: BP 143/79; TEMP 97.9; O2SAT 95
[2023-11-26 07:43] LABS: HEMATOCRIT 33.4 % (36.0-47.0); MEAN CORPUSCULAR HEMOGLOBIN 29.9 pg (27.0-33.0); MEAN CORPUSCULAR HGB CONC 32.9 g/dl (32.0-36.5); MEAN CORPUSCULAR VOLUME 90.8 fl (80.0-96.0); PLATELET COUNT, AUTOMATED 207 10^3/uL (150-450); RED BLOOD COUNT 3.68 10^6/uL (4.00-5.40); WHITE BLOOD COUNT 7.5 10^3/uL (4.0-10.0)
[2023-11-26 08:10] LABS: BLOOD UREA NITROGEN 11 MG/DL (9-23); CALCIUM LEVEL 8.6 MG/DL (8.3-10.6); CARBON DIOXIDE LEVEL 25 MMOL/L (20-31); CHLORIDE LEVEL 113 MMOL/L (98-107); CREATININE FOR GFR 0.65 MG/DL (0.55-1.30); GLOMERULAR FILTRATION RATE > 60.0 (>39); GLUCOSE, FASTING 126 MG/DL (74-106); POTASSIUM SERUM 3.8 MMOL/L (3.5-5.1); SODIUM LEVEL 140 MMOL/L (136-145)
[2023-11-26 08:50] LABS: ATYPICAL LYMPH 7 % (0-5); BASOPHILS 4 % (0-1); EOSINOPHILS 13 % (0-3); LYMPHOCYTES 26 % (16-44); MONOCYTES 2 % (0-5); NEUTROPHILS 48 % (28-66); PLATELET ESTIMATE NORMAL (NORMAL)
[2023-11-26 14:00] VITALS: BP 145/76; TEMP 97.5; O2SAT 96
[2023-11-26] MEDS: SINEMET**CR** 25/100 TABCR PO SCH (18:53)
[2023-11-26 19:50] VITALS: BP 145/76; TEMP 97.7; O2SAT 97
[2023-11-27 05:27] VITALS: BP 159/91; TEMP 97.9; O2SAT 97
[2023-11-27 06:23] LABS: BASO # 0.1 10^3/uL (0.0-0.2); BASO % 1.3 % (0.0-1.0); EOS # 0.5 10^3/uL (0.0-0.5); EOS % 5.3 % (0.0-3.0); HEMATOCRIT 32.8 % (36.0-47.0); HEMOGLOBIN 10.8 g/dl (12.0-15.5); LYMPH # 2.8 10^3/uL (1.5-5.0); LYMPH % 32.1 % (24.0-44.0); MEAN CORPUSCULAR HEMOGLOBIN 30.1 pg (27.0-33.0); MEAN CORPUSCULAR HGB CONC 32.9 g/dl (32.0-36.5); MEAN CORPUSCULAR VOLUME 91.4 fl (80.0-96.0); MONO # 0.8 10^3/uL (0.0-0.8); MONO % 9.5 % (2.0-8.0); NEUTROPHILS # 4.5 10^3/uL (1.5-8.5); PLATELET COUNT, AUTOMATED 238 10^3/uL (150-450); RED BLOOD COUNT 3.59 10^6/uL (4.00-5.40); WHITE BLOOD COUNT 8.8 10^3/uL (4.0-10.0)
[2023-11-27 06:45] LABS: BLOOD UREA NITROGEN 12 MG/DL (9-23); CALCIUM LEVEL 8.4 MG/DL (8.3-10.6); CARBON DIOXIDE LEVEL 24 MMOL/L (20-31); CHLORIDE LEVEL 112 MMOL/L (98-107); CREATININE FOR GFR 0.61 MG/DL (0.55-1.30); GLOMERULAR FILTRATION RATE > 60.0 (>39); GLUCOSE, FASTING 130 MG/DL (74-106); POTASSIUM SERUM 3.8 MMOL/L (3.5-5.1); SODIUM LEVEL 140 MMOL/L (136-145)
[2023-11-27 08:57] VITALS: BP 130/68
[2023-11-27] MEDS ORDERED: CEFD300CAP PO (11:41)
[2023-11-27] MEDS ORDERED: DOXY100T PO (11:41)
[2023-11-27] MEDS ORDERED: PROBCAP14 PO (11:41)
== END 2023-11-27 13:40 | disposition home health service (06) | DRG 872 ==
LOC: M ED 18:05 → M ED INP 22:36 → M MSPAV 11-23 12:30
PROVIDERS: ADMIT Preventive Medicine Undersea and Hyperbaric Medicine; ATTEND Internal Medicine Nephrology
DX: A41.9 Sepsis, unspecified organism (principal); I50.32 Chronic diastolic (congestive) heart failure; L03.115 Cellulitis of right lower limb; G20.A1 Parkinson's disease without dyskinesia, without mention of fluctuations; I11.0 Hypertensive heart disease with heart failure; E11.621 Type 2 diabetes mellitus with foot ulcer; E03.9 Hypothyroidism, unspecified; N39.41 Urge incontinence; E78.5 Hyperlipidemia, unspecified; E66.01 Morbid (severe) obesity due to excess calories; G47.33 Obstructive sleep apnea (adult) (pediatric); M47.816 Spondylosis without myelopathy or radiculopathy, lumbar region; M20.11 Hallux valgus (acquired), right foot; L97.519 Non-pressure chronic ulcer of other part of right foot with unspecified severity; K21.9 Gastro-esophageal reflux disease without esophagitis; E11.40 Type 2 diabetes mellitus with diabetic neuropathy, unspecified; G25.81 Restless legs syndrome; K59.09 Other constipation; E55.9 Vitamin D deficiency, unspecified; E53.8 Deficiency of other specified B group vitamins; I27.20 Pulmonary hypertension, unspecified; I34.0 Nonrheumatic mitral (valve) insufficiency; K57.90 Diverticulosis of intestine, part unspecified, without perforation or abscess without bleeding; M21.611 Bunion of right foot; M20.41 Other hammer toe(s) (acquired), right foot; Z98.49 Cataract extraction status, unspecified eye; Z79.82 Long term (current) use of aspirin; Z79.890 Hormone replacement therapy; Z79.899 Other long term (current) drug therapy; Z88.8 Allergy status to other drugs, medicaments and biological substances

== ENCOUNTER 2024-03-13 06:06 | Inpatient (IN) | payer MEDICARE, OTHER ==
[~2024-03-13] VITALS: Ht 172.7 cm; Wt 128.1 kg
[~2024-03-13 06:06] MED LIST changes: +CEFD300CAP PO; -CRAN400C PO; +CRANBERRY400 MG PO; +D-MA500C2 PO; +DOXY-440 PO; -DOXY-444 PO; +DOXY100T PO; +MULT-40 PO; +PROBCAP14 PO
[2024-03-13] MEDS: LIDOCAINE 2% 5ML JELLY UROJET TOP ONE (07:20)
[2024-03-13 07:58] LABS: BASO # 0.1 10^3/uL (0.0-0.2); BASO % 0.6 % (0.0-1.0); EOS # 0.1 10^3/uL (0.0-0.5); EOS % 0.6 % (0.0-3.0); HEMOGLOBIN 12.7 g/dl (12.0-15.5); LYMPH # 1.7 10^3/uL (1.5-5.0); LYMPH % 13.1 % (24.0-44.0); MEAN CORPUSCULAR HEMOGLOBIN 30.2 pg (27.0-33.0); MEAN CORPUSCULAR HGB CONC 32.6 g/dl (32.0-36.5); MEAN CORPUSCULAR VOLUME 92.9 fl (80.0-96.0); MONO # 0.8 10^3/uL (0.0-0.8); MONO % 6.3 % (2.0-8.0); NEUTROPHILS # 10.5 10^3/uL (1.5-8.5); WHITE BLOOD COUNT 13.3 10^3/uL (4.0-10.0)
[2024-03-13 08:24] LABS: ALBUMIN 3.5 G/DL (3.2-5.2); ALKALINE PHOSPHATASE 62 U/L (46-116); ALT/SGPT < 9 U/L (7.0-40); AMYLASE 38 U/L (30-118); AST/SGOT 17 U/L (<34); BILIRUBIN,DIRECT 0.1 MG/DL (<0.4); BILIRUBIN,TOTAL 0.4 MG/DL (0.3-1.2); BLOOD UREA NITROGEN 22 MG/DL (9-23); CALCIUM LEVEL 8.8 MG/DL (8.3-10.6); CARBON DIOXIDE LEVEL 24 MMOL/L (20-31); CHLORIDE LEVEL 106 MMOL/L (98-107); CK-MB VALUE MASS 1.7 NG/ML (<3.6); CREATININE FOR GFR 0.82 MG/DL (0.55-1.30); GLOMERULAR FILTRATION RATE > 60.0 (>39); GLUCOSE, FASTING 165 MG/DL (74-106); POTASSIUM SERUM 3.8 MMOL/L (3.5-5.1); SODIUM LEVEL 136 MMOL/L (136-145); TOTAL PROTEIN 7.7 G/DL (5.7-8.2)
[2024-03-13 08:26] LABS: FREE T4 1.03 NG/DL (0.89-1.76); THYROID STIMULATING HORMONE 3.021 uIU/ML (0.55-4.78)
[2024-03-13] MEDS ORDERED: PROBCAP14 PO (08:31)
[2024-03-13] MEDS ORDERED: HOME MED LIST COMPLETE! XX SCH (08:35)
[2024-03-13 08:41] LABS: CPK CREATINE PHOSPHOKINASE 122 U/L (34-145); MB/CK RELATIVE INDEX 1.39 (< OR =4)
[2024-03-13 08:56] LABS: PLATELET COUNT, AUTOMATED 210 10^3/uL (150-450)
[2024-03-13] MEDS ORDERED: ASPIRIN 81MG ENTERIC TABLET PO SCH (09:00)
[2024-03-13] MEDS: CO-ENZYME Q10 50 MG CAP PO SCH (09:00)
[2024-03-13 09:02] LABS: ERYTHROCYTE SEDIMENTATION RATE 56 mm/hr (0-30)
[2024-03-13] MEDS: PIPERACILLIN/TAZOBACTAM SOD 4.5 GM in D5W MINI-BAG PLUS 50 ML IV ONE (09:22)
[2024-03-13] MEDS: NS 1,000 ML IV ONE (09:22)
[2024-03-13 09:54] LABS: MB/CK RELATIVE INDEX 1.29 (< OR =4)
[2024-03-13] MEDS ORDERED: VANCOMYCIN HCL 2,000 MG in D5W 500 ML IV ONE (10:10)
[2024-03-13] MEDS: VANCOMYCIN HCL 1,000 MG, VIAL MATE ADAPTER 1 EACH in D5W 250 ML IV ONE ×2 (11:13→13:52)
[2024-03-13] MEDS: ENTACAPONE 200MG TABLET (COMTAN) PO SCH (13:00)
[2024-03-13] MEDS ORDERED: DEXTROSE 50% 50ML SYRINGE IV PRN (13:25)
[2024-03-13] MEDS ORDERED: GLUCAGON INJ 1MG VIAL SC PRN (13:25)
[2024-03-13] MEDS ORDERED: GLUCOSE 4 GM CHEW PO PRN (13:25)
[2024-03-13] MEDS: VITAMIN D 1,000 INTERNATIONAL UNITS TABLET PO SCH (14:41)
[2024-03-13] MEDS: LEVOTHYROXINE 75MCG TABLET (0.075MG) PO SCH (14:41)
[2024-03-13] MEDS: PANTOPRAZOLE 40MG TAB (PROTONIX) PO SCH (14:42)
[2024-03-13] MEDS: DOCUSATE SODIUM 100MG CAPSULE PO SCH (14:42)
[2024-03-13] MEDS: SITagliptin 50 MG TAB (JANUVIA) PO SCH (14:43)
[2024-03-13] MEDS: LOSARTAN 50MG TABLET PO SCH (14:43)
[2024-03-13] MEDS: allopurinoL 300 MG TAB PO SCH (14:44)
[2024-03-13] MEDS: CYANOCOBALAMIN 500 MCG TAB PO SCH (14:44)
[2024-03-13] MEDS: TORSEMIDE 20 MG TAB PO SCH (14:45)
[2024-03-13] MEDS ORDERED: PILL CUTTER 1 EACH XX ONE (14:47)
[2024-03-13] MEDS: INSULIN LISPRO (NovoLOG) PER UNIT SC SCH ×2 (14:52→20:26)
[2024-03-13] MEDS: cefTRIAXone SOD 1 GM in D5W MINI-BAG PLUS 50 ML IV SCH (15:23)
[2024-03-13] MEDS: PRAMIPEXOLE 1 MG TAB PO SCH (16:00)
[2024-03-13 17:42] VITALS: BP 149/78; TEMP 98.6; O2SAT 88; O2SAT 96
[2024-03-13 19:58] VITALS: BP 146/72; TEMP 97.9; O2SAT 97
[2024-03-13] MEDS: oxyBUTYnin *DITROPAN XL* 5 MG TABCR PO SCH (20:54)
[2024-03-13] MEDS: ACETAMINOPHEN 650MG ER TAB (TYLENOL ARTHRITIS) PO SCH (20:55)
[2024-03-13] MEDS: SIMVASTATIN 40 MG TAB PO SCH (20:55)
[2024-03-13] MEDS: METOPROLOL SUCC *XL* 25MG TAB (TopROL *XL*) PO SCH (20:56)
[2024-03-13] MEDS ORDERED: HEPARIN SOD (PORCINE) 5000UNITS/ML 1ML VIAL/SYRINGE SQ SCH (21:00)
[2024-03-14 04:17] VITALS: BP 117/60; TEMP 97.5; O2SAT 98
[2024-03-14] MEDS: LEVOTHYROXINE 88MCG TABLET (0.088 MG) PO SCH (06:26)
[2024-03-14 12:00] VITALS: BP 128/64; TEMP 97.5; O2SAT 95
[2024-03-14 19:57] VITALS: BP 128/65; TEMP 97.9; O2SAT 95
[2024-03-15 04:05] VITALS: BP 132/62; TEMP 97.5; O2SAT 94
[2024-03-15 06:42] LABS: BASO # 0.1 10^3/uL (0.0-0.2); EOS # 0.5 10^3/uL (0.0-0.5); EOS % 4.7 % (0.0-3.0); HEMATOCRIT 36.2 % (36.0-47.0); HEMOGLOBIN 12.1 g/dl (12.0-15.5); LYMPH # 2.7 10^3/uL (1.5-5.0); LYMPH % 23.1 % (24.0-44.0); MEAN CORPUSCULAR HEMOGLOBIN 30.8 pg (27.0-33.0); MEAN CORPUSCULAR HGB CONC 33.4 g/dl (32.0-36.5); MEAN CORPUSCULAR VOLUME 92.1 fl (80.0-96.0); MONO # 0.9 10^3/uL (0.0-0.8); MONO % 7.7 % (2.0-8.0); NEUTROPHILS # 7.3 10^3/uL (1.5-8.5); NEUTROPHILS % 63.1 % (36.0-66.0); PLATELET COUNT, AUTOMATED 239 10^3/uL (150-450); RED BLOOD COUNT 3.93 10^6/uL (4.00-5.40); WHITE BLOOD COUNT 11.5 10^3/uL (4.0-10.0)
[2024-03-15 07:07] LABS: BLOOD UREA NITROGEN 19 MG/DL (9-23); CALCIUM LEVEL 8.8 MG/DL (8.3-10.6); CARBON DIOXIDE LEVEL 28 MMOL/L (20-31); CHLORIDE LEVEL 107 MMOL/L (98-107); CREATININE FOR GFR 0.92 MG/DL (0.55-1.30); GLOMERULAR FILTRATION RATE > 60.0 (>39); GLUCOSE, FASTING 136 MG/DL (74-106); MAGNESIUM LEVEL 1.9 MG/DL (1.8-2.4); POTASSIUM SERUM 3.2 MMOL/L (3.5-5.1); SODIUM LEVEL 140 MMOL/L (136-145)
[2024-03-15 07:52] VITALS: BP 126/66
[2024-03-15] MEDS: POTASSIUM CHLORIDE 10MEQ SR TABLET PO ONE (07:56)
[2024-03-15] MEDS ORDERED: CEFD1CAP9 PO (10:43)
[2024-03-15] MEDS ORDERED: POTA-149 PO (10:46)
[2024-03-15] MEDS ORDERED: NYST1POW9 TOP (11:00)
== END 2024-03-15 12:12 | disposition home or self-care (01) | DRG 603 ==
LOC: EDBD 06:06 → M ED 06:06 → M ED INP 10:10 → M MSPAV 17:39
PROVIDERS: ADMIT General Practice; ATTEND Preventive Medicine Undersea and Hyperbaric Medicine
DX: L03.116 Cellulitis of left lower limb (principal); L97.419 Non-pressure chronic ulcer of right heel and midfoot with unspecified severity; Z68.41 Body mass index [BMI] 40.0-44.9, adult; E11.621 Type 2 diabetes mellitus with foot ulcer; E11.40 Type 2 diabetes mellitus with diabetic neuropathy, unspecified; E03.9 Hypothyroidism, unspecified; I10 Essential (primary) hypertension; G20.A1 Parkinson's disease without dyskinesia, without mention of fluctuations; E66.01 Morbid (severe) obesity due to excess calories; G47.33 Obstructive sleep apnea (adult) (pediatric); L84 Corns and callosities; G25.81 Restless legs syndrome; E78.5 Hyperlipidemia, unspecified; J45.909 Unspecified asthma, uncomplicated; K59.09 Other constipation; K57.90 Diverticulosis of intestine, part unspecified, without perforation or abscess without bleeding; K21.9 Gastro-esophageal reflux disease without esophagitis; M10.9 Gout, unspecified; E55.9 Vitamin D deficiency, unspecified; E53.8 Deficiency of other specified B group vitamins; I27.20 Pulmonary hypertension, unspecified; I34.0 Nonrheumatic mitral (valve) insufficiency; N31.9 Neuromuscular dysfunction of bladder, unspecified; M21.611 Bunion of right foot; M20.11 Hallux valgus (acquired), right foot; M20.41 Other hammer toe(s) (acquired), right foot; M19.071 Primary osteoarthritis, right ankle and foot; M71.21 Synovial cyst of popliteal space [Baker], right knee; Z79.890 Hormone replacement therapy; Z79.82 Long term (current) use of aspirin; Z79.899 Other long term (current) drug therapy; Z88.8 Allergy status to other drugs, medicaments and biological substances

== ENCOUNTER → 2024-03-17 | Outpatient (REF) | payer MEDICARE, OTHER ==
[~2024-03-17] MED LIST changes: +NYST1POW9 TOP
== END ==
LOC: M LAB REF 12:47
PROVIDERS: ATTEND Family Medicine
DX: G60.9 Hereditary and idiopathic neuropathy, unspecified (principal)

== ENCOUNTER → 2024-04-07 | Outpatient (REF) | payer MEDICARE, OTHER | LOC: M LAB REF 16:03 | PROVIDERS: ATTEND Family Medicine | DX: L03.115 Cellulitis of right lower limb (principal) ==

== ENCOUNTER → 2024-08-14 | Outpatient (REF) | payer MEDICARE, OTHER ==
[~2024-08-14] MED LIST changes: +LEVA15HF2 INH; -LEVAINH INH; +NYST1POW3 TOP; -NYST1POW9 TOP
== END ==
LOC: M LAB REF 16:14
PROVIDERS: ATTEND Family Medicine
DX: L03.115 Cellulitis of right lower limb (principal)

== ENCOUNTER → 2024-08-21 | Outpatient (REF) | payer MEDICARE, OTHER ==
[2024-08-21 17:11] LABS: APPEARANCE, URINE HAZY (CLEAR); BACTERIA, URINE AUTO NEGATIVE (NEGATIVE); BILIRUBIN, URINE AUTO NEGATIVE (NEGATIVE); BLOOD, URINE BLOOD NEGATIVE (NEGATIVE); COLOR, URINE AMBER (YELLOW); GLUCOSE, URINE (UA) AUTO NEGATIVE (NEGATIVE); KETONE, URINE AUTO TRACE mg/dL (NEGATIVE); LEUKOCYTE ESTERASE, URINE AUTO NEGATIVE (NEGATIVE); MUCUS, URINE SMALL (NEGATIVE); NITRITE, URINE AUTO NEGATIVE (NEGATIVE); PROTEIN, URINE AUTO 1+ mg/dL (NEGATIVE); RBC, URINE AUTO 1 /HPF (0-3); SPECIFIC GRAVITY URINE AUTO 1.029 (1.002-1.035); SQUAMOUS EPITHELIAL CELL UR AU 14 /HPF (0-6); UROBILINOGEN, URINE AUTO 0.2 mg/dL (0.0-2.0); WBC, URINE AUTO 3 /HPF (0-3)
== END ==
LOC: M LAB REF 16:16
PROVIDERS: ATTEND Family Medicine
DX: R35.0 Frequency of micturition (principal)

== ENCOUNTER → 2024-12-11 | Outpatient (REF) | payer MEDICARE, OTHER | LOC: M LAB REF 12:50 | PROVIDERS: ATTEND Family Medicine | DX: G60.9 Hereditary and idiopathic neuropathy, unspecified (principal) ==

== ENCOUNTER 2025-07-10 23:15 | Inpatient (IN) | payer MEDICARE, OTHER ==
[~2025-07-10] VITALS: Ht 172.7 cm; Wt 106.8 kg
[~2025-07-10 23:15] MED LIST changes: -BACTDSTA PO; -COEN100C4 PO; +CRAN500T4 PO; -HM C500T4 PO; +SENN-225 PO; -SENO8.6T5 PO; +SULF-8 PO; +UBID100C3 PO
[2025-07-11] VITALS (32 sets, daily range): BP systolic 121–169; BP diastolic 59–89; TEMP 96.8–99.2; O2SAT 90–100
[2025-07-11 00:15] LABS: CALCIUM LEVEL 8.6 MG/DL (8.3-10.6); CARBON DIOXIDE LEVEL 20 MMOL/L (20-31); CHLORIDE LEVEL 111 MMOL/L (98-107); CK-MB VALUE MASS 1.0 NG/ML (<3.6); CREATININE FOR GFR 0.77 MG/DL (0.55-1.30); GLOMERULAR FILTRATION RATE 78.4 (>39); POTASSIUM SERUM 4.3 MMOL/L (3.5-5.1); SODIUM LEVEL 137 MMOL/L (136-145)
[2025-07-11 00:23] LABS: CPK CREATINE PHOSPHOKINASE 49 U/L (34-145); MB/CK RELATIVE INDEX 2.04 (< OR =4)
[2025-07-11 00:31] LABS: BASO # 0.2 10^3/uL (0.0-0.2); BASO % 0.8 % (0.0-1.0); EOS # 0.3 10^3/uL (0.0-0.5); EOS % 1.5 % (0.0-3.0); LYMPH # 2.6 10^3/uL (1.5-5.0); LYMPH % 13.2 % (24.0-44.0); MONO # 1.3 10^3/uL (0.0-0.8); MONO % 6.4 % (2.0-8.0); NEUTROPHILS # 15.2 10^3/uL (1.5-8.5); NEUTROPHILS % 77.2 % (36.0-66.0); PLATELET COUNT, AUTOMATED 446 10^3/uL (150-450)
[2025-07-11] MEDS ORDERED: ISOVUE-370 76% 100 ML VIAL As Ordered ONE (00:37)
[2025-07-11 01:06] LABS: CK-MB VALUE MASS 1.8 NG/ML (<3.6)
[2025-07-11 01:10] LABS: CPK CREATINE PHOSPHOKINASE 39 U/L (34-145); MB/CK RELATIVE INDEX 4.61 (< OR =4)
[2025-07-11 02:08] LABS: LDH LACTATE DEHYDROGENASE 483 U/L (120-246)
[2025-07-11 02:09] LABS: ALT/SGPT < 9 U/L (7.0-40); AST/SGOT 31 U/L (<34); IRON (FE) 40 UG/DL (50-170); MAGNESIUM LEVEL 1.8 MG/DL (1.8-2.4); PERCENT SATURATION 16.1 % (13.2-45.0); PHOSPHORUS LEVEL 3.2 MG/DL (2.4-5.1)
[2025-07-11 02:12] LABS: VITAMIN B12 LEVEL > 2000 PG/ML (211-911)
[2025-07-11] MEDS ORDERED: DEXTROSE 50% 50 ML SYRINGE IV PRN (02:35)
[2025-07-11] MEDS ORDERED: GLUCOSE 4 GM CHEW PO PRN (02:35)
[2025-07-11] MEDS ORDERED: GLUCAGON INJ 1 MG VIAL SC PRN (02:35)
[2025-07-11 02:43] LABS: MONO SCRN NEGATIVE (NEGATIVE)
[2025-07-11 03:50] LABS: HIV 1&2 SCREEN NEGATIVE (NEGATIVE)
[2025-07-11 04:35] LABS: PLATELET ESTIMATE NORMAL (NORMAL)
[2025-07-11] MEDS: ACETAMINOPHEN 325 MG TAB PO PRN (04:46)
[2025-07-11 04:58] LABS: PLATELET COUNT, AUTOMATED 402 10^3/uL (150-450)
[2025-07-11 05:17] LABS: D-DIMER QUANT 2.03 ug/mL (<0.5); INR 1.16
[2025-07-11] MEDS: PERCOCET 5MG/325MG TAB PO ONE (05:52)
[2025-07-11 07:26] LABS: BASO # 0.1 10^3/uL (0.0-0.2); BASO % 0.6 % (0.0-1.0); EOS # 0.2 10^3/uL (0.0-0.5); EOS % 1.3 % (0.0-3.0); LYMPH # 3.1 10^3/uL (1.5-5.0); LYMPH % 17.9 % (24.0-44.0); MONO # 1.2 10^3/uL (0.0-0.8); MONO % 6.9 % (2.0-8.0); NEUTROPHILS # 12.7 10^3/uL (1.5-8.5); NEUTROPHILS % 72.3 % (36.0-66.0); PLATELET COUNT, AUTOMATED 429 10^3/uL (150-450)
[2025-07-11 07:33] LABS: ALT/SGPT < 9 U/L (7.0-40); AST/SGOT 29 U/L (<34); CALCIUM LEVEL 8.6 MG/DL (8.3-10.6); CARBON DIOXIDE LEVEL 25 MMOL/L (20-31); CHLORIDE LEVEL 113 MMOL/L (98-107); CREATININE FOR GFR 0.76 MG/DL (0.55-1.30); GLOMERULAR FILTRATION RATE 79.7 (>39); MAGNESIUM LEVEL 2.0 MG/DL (1.8-2.4); POTASSIUM SERUM 4.3 MMOL/L (3.5-5.1); SODIUM LEVEL 141 MMOL/L (136-145)
[2025-07-11 07:42] LABS: CK-MB VALUE MASS 5.5 NG/ML (<3.6)
[2025-07-11 07:47] LABS: CPK CREATINE PHOSPHOKINASE 72.0 U/L (34-145); MB/CK RELATIVE INDEX 7.63 (< OR =4)
[2025-07-11] MEDS: INSULIN LISPRO (NovoLOG) PER UNIT SC SCH ×2 (08:41→20:37)
[2025-07-11 08:42] LABS: PLATELET ESTIMATE NORMAL (NORMAL)
[2025-07-11] MEDS ORDERED: POTA-149 PO (09:11)
[2025-07-11] MEDS ORDERED: NYST1POW3 TOP (09:11)
[2025-07-11] MEDS ORDERED: SENN-186 PO (09:11)
[2025-07-11] MEDS ORDERED: CARB1TAB97 PO (09:11)
[2025-07-11] MEDS ORDERED: HOME MED LIST COMPLETE! XX SCH (09:15)
[2025-07-11] MEDS ORDERED: HYDROMORPHONE HCL 0.5 MG/0.5 ML SYRINGE IV PRN ×2 (09:50)
[2025-07-11] MEDS: NS (Normal Saline) 0.9% 1,000 ML IV SCH (10:11)
[2025-07-11] MEDS: ACETAMINOPHEN 650 MG PO PO ONE (12:36)
[2025-07-11] MEDS: diphenhydrAMINE 25 MG IV IV ONE (12:37)
[2025-07-11] MEDS: FAMOTIDINE 20 MG IVP IV ONE (12:37)
[2025-07-11] MEDS: PANTOPRAZOLE 40MG VIAL IV SCH (13:36)
[2025-07-11] MEDS: LEVOTHYROXINE 88 MCG TABLET (0.088 MG) PO SCH (13:36)
[2025-07-11 17:18] LABS: ABG BASE EXCESS -3.4 (-2.0-2.0); ABG HCO3 19.7 MMOL/L (22.0-26.0); ABG O2 SATURATION 93.9 % (95.0-99.0); ABG PARTIAL PRESSURE CO2 28.2 mmHg (35.0-45.0); ABG PARTIAL PRESSURE O2 68.4 mmHg (75.0-100.0); ABG STANDARD HCO3 21.6 MMOL/L. (22.0-26.0); ABG TOTAL CO2 20.6 MMOL/L (23.0-31.0); ABG pH (ARTERIAL) 7.463 UNITS (7.350-7.450)
[2025-07-11 17:23] LABS: APPEARANCE, URINE HAZY (CLEAR); BACTERIA, URINE AUTO 1+ (NEGATIVE); BILIRUBIN, URINE AUTO NEGATIVE (NEGATIVE); BLOOD, URINE BLOOD NEGATIVE (NEGATIVE); GLUCOSE, URINE (UA) AUTO NEGATIVE (NEGATIVE); KETONE, URINE AUTO TRACE mg/dL (NEGATIVE); LEUKOCYTE ESTERASE, URINE AUTO NEGATIVE (NEGATIVE); MUCUS, URINE SMALL (NEGATIVE); NITRITE, URINE AUTO NEGATIVE (NEGATIVE); PROTEIN, URINE AUTO 1+ mg/dL (NEGATIVE); RBC, URINE AUTO 3 /HPF (0-3); SPECIFIC GRAVITY URINE AUTO 1.041 (1.002-1.035); SQUAMOUS EPITHELIAL CELL UR AU 21 /HPF (0-6); UROBILINOGEN, URINE AUTO 0.2 mg/dL (0.0-2.0); WBC, URINE AUTO 4 /HPF (0-3)
[2025-07-11] MEDS: LEVALBUTEROL 1.25 MG 0.5ML CONCENTRATE NEB INH PRN (17:23)
[2025-07-11 17:25] LABS: HEPATITIS B SURFACE ANTIBODY NEGATIVE (POSITIVE)
[2025-07-11] MEDS: MULTIVITAMINS/MINERALS THERAP 1 TAB PO SCH (18:52)
[2025-07-11] MEDS: CARBIDOPA/LEVODOPA 25 MG/100 MG PO SCH (18:53)
[2025-07-11] MEDS: ENTACAPONE 200 MG TABLET PO SCH (18:53)
[2025-07-11] MEDS: CO-ENZYME Q10 50 MG CAP PO SCH (18:54)
[2025-07-11] MEDS: PRAMIPEXOLE 1 MG TAB PO SCH (18:54)
[2025-07-11] MEDS: LEVALBUTEROL 1.25 MG 0.5ML CONCENTRATE NEB INH SCH (19:26)
[2025-07-11] MEDS: NYSTATIN 100,000 UNITS/GM TOPICAL PWD 15 GM TOP SCH (21:43)
[2025-07-11] MEDS: oxyBUTYnin *XL* 5 MG TAB PO SCH (21:44)
[2025-07-11] MEDS: SIMVASTATIN 40 MG TAB PO SCH (21:44)
[2025-07-11] MEDS: CARBIDOPA/LEVODOPA **ER** 25 MG/100 MG PO SCH (21:44)
[2025-07-12] VITALS (32 sets, daily range): BP systolic 121–142; BP diastolic 60–98; TEMP 97–97.7; O2SAT 92–99
[2025-07-12 07:19] LABS: BASO # 0.1 10^3/uL (0.0-0.2); BASO % 0.5 % (0.0-1.0); EOS # 0.0 10^3/uL (0.0-0.5); EOS % 0.2 % (0.0-3.0); LYMPH # 1.7 10^3/uL (1.5-5.0); LYMPH % 8.8 % (24.0-44.0); MONO # 1.1 10^3/uL (0.0-0.8); MONO % 5.9 % (2.0-8.0); NEUTROPHILS # 16.1 10^3/uL (1.5-8.5); NEUTROPHILS % 83.6 % (36.0-66.0); PLATELET COUNT, AUTOMATED 384 10^3/uL (150-450)
[2025-07-12 07:42] LABS: ALT/SGPT < 9 U/L (7.0-40); AST/SGOT 40 U/L (<34); CALCIUM LEVEL 8.2 MG/DL (8.3-10.6); CARBON DIOXIDE LEVEL 23 MMOL/L (20-31); CHLORIDE LEVEL 111 MMOL/L (98-107); CREATININE FOR GFR 0.81 MG/DL (0.55-1.30); GLOMERULAR FILTRATION RATE 73.8 (>39); POTASSIUM SERUM 4.5 MMOL/L (3.5-5.1); SODIUM LEVEL 140 MMOL/L (136-145)
[2025-07-12 07:43] LABS: LDH LACTATE DEHYDROGENASE 593 U/L (120-246)
[2025-07-12] MEDS: FUROSEMIDE 40 MG/4 ML VIAL IV ONE (08:53)
[2025-07-12] MEDS: NS (Normal Saline) 0.9% 1,000 ML IV SCH (08:54)
[2025-07-12] MEDS: VITAMIN D 1,000 INTERNATIONAL UNITS TABLET PO SCH (11:09)
[2025-07-12] MEDS: CYANOCOBALAMIN 500 MCG TAB PO SCH (11:10)
[2025-07-12] MEDS: METOPROLOL TART 12.5 MG PER 1/2 TAB PO ONE (12:13)
[2025-07-12] MEDS ORDERED: ENOXAPARIN 100 MG/1 ML SYRINGE (J1650 PER 10MG) SC SCH (14:20)
[2025-07-12] MEDS ORDERED: HEPARIN SOD 5000 UNITS/ML 1 ML VIAL/SYRINGE IV PRN (14:40)
[2025-07-12] MEDS: FUROSEMIDE 40 MG/4 ML VIAL IV SCH (17:11)
[2025-07-12 17:19] LABS: CALCIUM LEVEL 8.5 MG/DL (8.3-10.6); CARBON DIOXIDE LEVEL 22.0 MMOL/L (20-31); CHLORIDE LEVEL 108.0 MMOL/L (98-107); CREATININE FOR GFR 0.84 MG/DL (0.55-1.30); GLOMERULAR FILTRATION RATE 70.6 (>39); POTASSIUM SERUM 4.2 MMOL/L (3.5-5.1); SODIUM LEVEL 135.0 MMOL/L (136-145)
[2025-07-12] MEDS: HEPARIN SOD 5000 UNITS/ML 1 ML VIAL/SYRINGE IV ONE (18:10)
[2025-07-12] MEDS: HEPARIN DRIP 25,000 UNITS in IV 1 EA IV SCH (18:14)
[2025-07-12] MEDS: ATORVASTATIN 20 MG TAB PO SCH (20:29)
[2025-07-13] VITALS (34 sets, daily range): BP systolic 137–155; BP diastolic 65–73; TEMP 97.2–98.3; O2SAT 86–100
[2025-07-13 00:21] LABS: CALCIUM LEVEL 8.4 MG/DL (8.3-10.6); CARBON DIOXIDE LEVEL 24.0 MMOL/L (20-31); CHLORIDE LEVEL 106.0 MMOL/L (98-107); CREATININE FOR GFR 0.89 MG/DL (0.55-1.30); GLOMERULAR FILTRATION RATE 65.9 (>39); POTASSIUM SERUM 3.7 MMOL/L (3.5-5.1); SODIUM LEVEL 136.0 MMOL/L (136-145)
[2025-07-13] MEDS: LEVOTHYROXINE 88 MCG TABLET (0.088 MG) PO SCH (03:13)
[2025-07-13 05:47] LABS: BASO # 0.1 10^3/uL (0.0-0.2); BASO % 0.3 % (0.0-1.0); EOS # 0.0 10^3/uL (0.0-0.5); EOS % 0.1 % (0.0-3.0); LYMPH # 2.3 10^3/uL (1.5-5.0); LYMPH % 11.9 % (24.0-44.0); MONO # 1.5 10^3/uL (0.0-0.8); MONO % 7.6 % (2.0-8.0); NEUTROPHILS # 15.6 10^3/uL (1.5-8.5); NEUTROPHILS % 78.8 % (36.0-66.0); PLATELET COUNT, AUTOMATED 344 10^3/uL (150-450)
[2025-07-13 06:12] LABS: LDH LACTATE DEHYDROGENASE 621 U/L (120-246)
[2025-07-13 06:13] LABS: ALT/SGPT < 9 U/L (7.0-40); AST/SGOT 31 U/L (<34); CALCIUM LEVEL 8.3 MG/DL (8.3-10.6); CARBON DIOXIDE LEVEL 26 MMOL/L (20-31); CHLORIDE LEVEL 112 MMOL/L (98-107); CREATININE FOR GFR 0.88 MG/DL (0.55-1.30); GLOMERULAR FILTRATION RATE 66.8 (>39); POTASSIUM SERUM 3.8 MMOL/L (3.5-5.1); SODIUM LEVEL 140 MMOL/L (136-145)
[2025-07-13 06:18] LABS: CALCIUM LEVEL 8.2 MG/DL (8.3-10.6); CARBON DIOXIDE LEVEL 25.0 MMOL/L (20-31); CHLORIDE LEVEL 111.0 MMOL/L (98-107); CREATININE FOR GFR 0.88 MG/DL (0.55-1.30); GLOMERULAR FILTRATION RATE 66.8 (>39); POTASSIUM SERUM 3.7 MMOL/L (3.5-5.1); SODIUM LEVEL 140.0 MMOL/L (136-145)
[2025-07-13] MEDS: FLUZONE HIGH DOSE (65+) 0.5 ML SYRINGE (25-26) IM.IMMUN ONE (09:13)
[2025-07-13 10:52] LABS: INR 1.14
[2025-07-13 10:53] LABS: CALCIUM LEVEL 8.5 MG/DL (8.3-10.6); CARBON DIOXIDE LEVEL 24.0 MMOL/L (20-31); CHLORIDE LEVEL 106.0 MMOL/L (98-107); CREATININE FOR GFR 0.81 MG/DL (0.55-1.30); GLOMERULAR FILTRATION RATE 73.8 (>39); POTASSIUM SERUM 3.5 MMOL/L (3.5-5.1); SODIUM LEVEL 137.0 MMOL/L (136-145)
[2025-07-13] MEDS: POTASSIUM CHLORIDE 10MEQ SR TABLET PO ONE (17:46)
[2025-07-13 18:37] LABS: CALCIUM LEVEL 8.9 MG/DL (8.3-10.6); CARBON DIOXIDE LEVEL 22.0 MMOL/L (20-31); CHLORIDE LEVEL 104.0 MMOL/L (98-107); CREATININE FOR GFR 0.87 MG/DL (0.55-1.30); GLOMERULAR FILTRATION RATE 67.7 (>39); POTASSIUM SERUM 3.9 MMOL/L (3.5-5.1); SODIUM LEVEL 136.0 MMOL/L (136-145)
[2025-07-13 18:51] LABS: INR 1.14
[2025-07-13] MEDS: SIMVASTATIN 40 MG TAB PO SCH (21:46)
[2025-07-14] VITALS (33 sets, daily range): BP systolic 137–177; BP diastolic 59–84; TEMP 97–98.5; O2SAT 18–99
[2025-07-14 01:09] LABS: INR 1.17
[2025-07-14 01:28] LABS: CALCIUM LEVEL 8.5 MG/DL (8.3-10.6); CARBON DIOXIDE LEVEL 25.0 MMOL/L (20-31); CHLORIDE LEVEL 108.0 MMOL/L (98-107); CREATININE FOR GFR 0.81 MG/DL (0.55-1.30); GLOMERULAR FILTRATION RATE 73.8 (>39); POTASSIUM SERUM 3.9 MMOL/L (3.5-5.1); SODIUM LEVEL 138.0 MMOL/L (136-145)
[2025-07-14 06:55] LABS: BASO # 0.0 10^3/uL (0.0-0.2); BASO % 0.2 % (0.0-1.0); EOS # 0.0 10^3/uL (0.0-0.5); EOS % 0.1 % (0.0-3.0); LYMPH # 2.8 10^3/uL (1.5-5.0); LYMPH % 12.8 % (24.0-44.0); MONO # 1.7 10^3/uL (0.0-0.8); MONO % 7.6 % (2.0-8.0); NEUTROPHILS # 16.9 10^3/uL (1.5-8.5); NEUTROPHILS % 77.6 % (36.0-66.0); PLATELET COUNT, AUTOMATED 368 10^3/uL (150-450)
[2025-07-14 07:23] LABS: ALT/SGPT 11 U/L (7.0-40); AST/SGOT 27 U/L (<34); CALCIUM LEVEL 8.5 MG/DL (8.3-10.6); CARBON DIOXIDE LEVEL 26 MMOL/L (20-31); CHLORIDE LEVEL 111 MMOL/L (98-107); CREATININE FOR GFR 0.78 MG/DL (0.55-1.30); GLOMERULAR FILTRATION RATE 77.2 (>39); LDH LACTATE DEHYDROGENASE 651 U/L (120-246); POTASSIUM SERUM 4.0 MMOL/L (3.5-5.1); SODIUM LEVEL 141 MMOL/L (136-145)
[2025-07-14] MEDS: DOCUSATE SODIUM 100 MG CAPSULE PO PRN (09:56)
[2025-07-14] MEDS: ENOXAPARIN 120 MG/0.8 ML SYRINGE SC SCH (10:45)
[2025-07-14 14:38] LABS: SOLUBLE TRANSFERRIN RECEPTOR 5.92 mg/L (0.76-1.76)
[2025-07-14] MEDS: SENNA 8.6 MG TAB PO PRN (20:55)
[2025-07-14 23:52] LABS: MYCOPLASMA PNEUMONIAE IGG 3.18 (<=0.90); MYCOPLASMA PNEUMONIAE IGM 62.0 U/mL (<770)
[2025-07-15] VITALS (32 sets, daily range): BP systolic 142–182; BP diastolic 72–92; TEMP 96.8–97.9; O2SAT 84–100
[2025-07-15 05:56] LABS: BASO # 0.0 10^3/uL (0.0-0.2); BASO % 0.1 % (0.0-1.0); EOS # 0.0 10^3/uL (0.0-0.5); EOS % 0.1 % (0.0-3.0); LYMPH # 2.4 10^3/uL (1.5-5.0); LYMPH % 13.0 % (24.0-44.0); MONO # 1.5 10^3/uL (0.0-0.8); MONO % 8.0 % (2.0-8.0); NEUTROPHILS # 14.5 10^3/uL (1.5-8.5); NEUTROPHILS % 77.1 % (36.0-66.0); PLATELET COUNT, AUTOMATED 371 10^3/uL (150-450)
[2025-07-15 06:06] LABS: BORRELIA SPECIES DNA NOT DETECTED (NOT DETECT)
[2025-07-15 06:28] LABS: ALT/SGPT < 9 U/L (7.0-40); AST/SGOT 23 U/L (<34); CALCIUM LEVEL 8.9 MG/DL (8.3-10.6); CARBON DIOXIDE LEVEL 26 MMOL/L (20-31); CHLORIDE LEVEL 110 MMOL/L (98-107); CREATININE FOR GFR 0.78 MG/DL (0.55-1.30); GLOMERULAR FILTRATION RATE 77.2 (>39); LDH LACTATE DEHYDROGENASE 625 U/L (120-246); POTASSIUM SERUM 3.9 MMOL/L (3.5-5.1); SODIUM LEVEL 141 MMOL/L (136-145)
[2025-07-15] MEDS: ASPIRIN 81 MG ENTERIC TABLET PO SCH (08:10)
[2025-07-15] MEDS: FUROSEMIDE 40 MG/4 ML VIAL IV SCH (08:12)
[2025-07-15 17:22] LABS: EBV PCR QUANTITATIVE Not Detected
[2025-07-16] VITALS (32 sets, daily range): BP systolic 120–170; BP diastolic 56–98; TEMP 97–98.4; O2SAT 93–98
[2025-07-16 06:10] LABS: BASO # 0.0 10^3/uL (0.0-0.2); BASO % 0.2 % (0.0-1.0); EOS # 0.1 10^3/uL (0.0-0.5); EOS % 0.3 % (0.0-3.0); LYMPH # 2.7 10^3/uL (1.5-5.0); LYMPH % 14.2 % (24.0-44.0); MONO # 1.6 10^3/uL (0.0-0.8); MONO % 8.7 % (2.0-8.0); NEUTROPHILS # 14.0 10^3/uL (1.5-8.5); NEUTROPHILS % 75.2 % (36.0-66.0); PLATELET COUNT, AUTOMATED 381 10^3/uL (150-450)
[2025-07-16 06:31] LABS: LDH LACTATE DEHYDROGENASE 614 U/L (120-246)
[2025-07-16 06:32] LABS: ALT/SGPT < 9 U/L (7.0-40); AST/SGOT 21 U/L (<34); CALCIUM LEVEL 8.7 MG/DL (8.3-10.6); CARBON DIOXIDE LEVEL 28 MMOL/L (20-31); CHLORIDE LEVEL 107 MMOL/L (98-107); CREATININE FOR GFR 0.82 MG/DL (0.55-1.30); GLOMERULAR FILTRATION RATE 72.7 (>39); MAGNESIUM LEVEL 2.1 MG/DL (1.8-2.4); POTASSIUM SERUM 3.7 MMOL/L (3.5-5.1); SODIUM LEVEL 139 MMOL/L (136-145)
[2025-07-16] MEDS: SENNA 8.6 MG TAB PO SCH (11:11)
[2025-07-17] VITALS (22 sets, daily range): BP systolic 111–140; BP diastolic 61–71; TEMP 96.8–98.2; O2SAT 93–97
[2025-07-17 05:53] LABS: BASO # 0.0 10^3/uL (0.0-0.2); BASO % 0.1 % (0.0-1.0); EOS # 0.1 10^3/uL (0.0-0.5); EOS % 0.4 % (0.0-3.0); LYMPH # 2.2 10^3/uL (1.5-5.0); LYMPH % 10.9 % (24.0-44.0); MONO # 1.6 10^3/uL (0.0-0.8); MONO % 7.8 % (2.0-8.0); NEUTROPHILS # 16.3 10^3/uL (1.5-8.5); NEUTROPHILS % 79.7 % (36.0-66.0); PLATELET COUNT, AUTOMATED 409 10^3/uL (150-450)
[2025-07-17 06:15] LABS: LDH LACTATE DEHYDROGENASE 557 U/L (120-246)
[2025-07-17 06:16] LABS: ALT/SGPT < 9 U/L (7.0-40); AST/SGOT 18 U/L (<34); CALCIUM LEVEL 9.1 MG/DL (8.3-10.6); CARBON DIOXIDE LEVEL 27 MMOL/L (20-31); CHLORIDE LEVEL 106 MMOL/L (98-107); CREATININE FOR GFR 0.72 MG/DL (0.55-1.30); GLOMERULAR FILTRATION RATE 85.0 (>39); MAGNESIUM LEVEL 2.1 MG/DL (1.8-2.4); POTASSIUM SERUM 3.5 MMOL/L (3.5-5.1); SODIUM LEVEL 137 MMOL/L (136-145)
[2025-07-17] MEDS ORDERED: DEXAMETHASONE IV PRN (07:30)
[2025-07-17] MEDS ORDERED: FAMOTIDINE 20MG IVP IV PRN (07:30)
[2025-07-17] MEDS ORDERED: ALBUTEROL SULFATE (2.5MG/0.5ML) NEB INH PRN (07:30)
[2025-07-17] MEDS ORDERED: diphenhydrAMINE (50MG/ML) IV IV PRN (07:30)
[2025-07-17] MEDS ORDERED: EPINEPHrine (1MG/ML) IV IM PRN (07:30)
[2025-07-17] MEDS ORDERED: NS (Normal Saline) 0.9% 1,000 ML IV PRN (07:30)
[2025-07-17] MEDS ORDERED: methylPREDNISolone (125 MG/2 ML) IV IV PRN (07:30)
[2025-07-17] MEDS: MIRALAX *UNIT DOSE* 17 GM PACKET PO SCH (08:06)
[2025-07-17] MEDS: POTASSIUM CHLORIDE 10MEQ SR TABLET PO ONE (08:07)
[2025-07-17] MEDS ORDERED: METH125VL IV (11:32)
[2025-07-17] MEDS ORDERED: ELIQ5TAB PO (11:32)
[2025-07-17] MEDS: BISACODYL 10 MG SUPP PR ONE (12:35)
[2025-07-17] MEDS: ACETAMINOPHEN 650 MG PO PO ONE (14:14)
[2025-07-17] MEDS: FAMOTIDINE 20MG IVP IV ONE (14:15)
[2025-07-17] MEDS: diphenhydrAMINE 25 MG IV IV ONE (14:15)
[2025-07-17] MEDS ORDERED: MOM 30 ML SUSPENSION UDC PO PRN (14:30)
[2025-07-17] MEDS: FLEET ENEMA PR ONE (16:34)
[2025-07-17] MEDS ORDERED: APIXABAN 5 MG TAB PO SCH (21:00)
== END 2025-07-17 17:23 | DRG 808 ==
LOC: M ED 23:15 → EDBD 23:15 → M ED INP 07-11 02:38 → M PCU 07-11 04:04
PROVIDERS: ADMIT Internal Medicine; ATTEND Student in an Organized Health Care Education/Training Program
PROC: B246ZZZ Ultrasonography of Right and Left Heart (ICD-10-PCS; principal; 2025-07-11)
DX: D59.4 Other nonautoimmune hemolytic anemias (principal); I26.93 Single subsegmental thrombotic pulmonary embolism without acute cor pulmonale; I24.89 Other forms of acute ischemic heart disease; I50.32 Chronic diastolic (congestive) heart failure; E11.9 Type 2 diabetes mellitus without complications; I11.0 Hypertensive heart disease with heart failure; E78.5 Hyperlipidemia, unspecified; G20.A1 Parkinson's disease without dyskinesia, without mention of fluctuations; E03.9 Hypothyroidism, unspecified; K21.9 Gastro-esophageal reflux disease without esophagitis; J45.909 Unspecified asthma, uncomplicated; I27.20 Pulmonary hypertension, unspecified; M81.0 Age-related osteoporosis without current pathological fracture; Z66 Do not resuscitate; K59.09 Other constipation; E87.70 Fluid overload, unspecified; T36.1X5A Adverse effect of cephalosporins and other beta-lactam antibiotics, initial encounter; E66.9 Obesity, unspecified; G47.33 Obstructive sleep apnea (adult) (pediatric); M10.9 Gout, unspecified; E80.6 Other disorders of bilirubin metabolism; N31.9 Neuromuscular dysfunction of bladder, unspecified; N39.3 Stress incontinence (female) (male); Z79.82 Long term (current) use of aspirin; Z79.890 Hormone replacement therapy; Z79.899 Other long term (current) drug therapy; Z68.35 Body mass index [BMI] 35.0-35.9, adult

== ENCOUNTER 2025-07-17 12:37 | Inpatient (IN) | payer MEDICARE, OTHER ==
[~2025-07-17] VITALS: Ht 172.7 cm; Wt 106.9 kg
[~2025-07-17 12:37] MED LIST changes: +CARB1TAB97 PO; +ELIQ5TAB PO; +METH125VL IV; +SENN-186 PO
[2025-07-17] MEDS ORDERED: GLUCAGON INJ 1 MG VIAL SC PRN (15:30)
[2025-07-17] MEDS ORDERED: GLUCOSE 4 GM CHEW PO PRN (15:30)
[2025-07-17] MEDS ORDERED: DEXTROSE 50% 50 ML SYRINGE IV PRN (15:30)
[2025-07-17] MEDS ORDERED: SIMETHICONE 80MG CHEW TAB PO PRN (15:35)
[2025-07-17] MEDS ORDERED: BISACODYL 10 MG SUPP PR PRN (15:35)
[2025-07-17] MEDS ORDERED: MAALOX 30 ML SUSP *UDC PO PRN (15:35)
[2025-07-17] MEDS ORDERED: ACETAMINOPHEN 325 MG TAB PO PRN (15:35)
[2025-07-17] MEDS ORDERED: MOM 30 ML SUSPENSION UDC PO PRN (15:35)
[2025-07-17] MEDS ORDERED: LEVALBUTEROL 1.25 MG 0.5ML CONCENTRATE NEB INH PRN (15:35)
[2025-07-17] MEDS ORDERED: ONDANSETRON 4MG ORAL DISINTEGRATING TAB PO PRN (15:35)
[2025-07-17] MEDS ORDERED: ENTACAPONE 200 MG TABLET PO SCH (17:00)
[2025-07-17 17:30] VITALS: BP 148/71; TEMP 97.4; O2SAT 97
[2025-07-17] MEDS ORDERED: PILL CUTTER 1 EACH XX PRN (18:10)
[2025-07-17] MEDS: INSULIN LISPRO (NovoLOG) PER UNIT SC SCH ×2 (18:58→21:00)
[2025-07-17 20:00] VITALS: BP 110/56; TEMP 96.2; O2SAT 96
[2025-07-17] MEDS: ENTACAPONE 200 MG TABLET PO SCH (20:53)
[2025-07-17] MEDS: PRAMIPEXOLE 1 MG TAB PO SCH (20:53)
[2025-07-17] MEDS: APIXABAN 5 MG TAB PO SCH (20:53)
[2025-07-17] MEDS: oxyBUTYnin *XL* 5 MG TAB PO SCH (20:53)
[2025-07-17] MEDS: SENNA 8.6 MG TAB PO SCH (20:54)
[2025-07-17] MEDS: CARBIDOPA/LEVODOPA **ER** 25 MG/100 MG PO SCH (20:54)
[2025-07-17] MEDS: METOPROLOL SUCC. 25 MG *XL* TAB PO SCH (20:55)
[2025-07-17] MEDS: SIMVASTATIN 40 MG TAB PO SCH (20:55)
[2025-07-17] MEDS: DOCUSATE SODIUM 100 MG CAPSULE PO SCH (20:55)
[2025-07-17] MEDS: NYSTATIN 100,000 UNITS/GM TOPICAL PWD 15 GM TOP SCH (21:00)
[2025-07-18] MEDS: LEVOTHYROXINE 88 MCG TABLET (0.088 MG) PO SCH (02:57)
[2025-07-18 04:00] VITALS: BP 132/63; TEMP 96.4; O2SAT 97
[2025-07-18] MEDS: PANTOPRAZOLE 40MG TAB PO SCH (05:58)
[2025-07-18] MEDS: CARBIDOPA/LEVODOPA 25 MG/100 MG PO SCH (05:58)
[2025-07-18 06:17] LABS: BASO # 0.0 10^3/uL (0.0-0.2); BASO % 0.1 % (0.0-1.0); EOS # 0.1 10^3/uL (0.0-0.5); EOS % 0.2 % (0.0-3.0); LYMPH # 1.8 10^3/uL (1.5-5.0); LYMPH % 8.5 % (24.0-44.0); MONO # 1.3 10^3/uL (0.0-0.8); MONO % 6.0 % (2.0-8.0); NEUTROPHILS # 17.7 10^3/uL (1.5-8.5); NEUTROPHILS % 84.0 % (36.0-66.0); PLATELET COUNT, AUTOMATED 436 10^3/uL (150-450)
[2025-07-18 06:44] LABS: LDH LACTATE DEHYDROGENASE 541 U/L (120-246)
[2025-07-18 06:45] LABS: ALT/SGPT < 9 U/L (7.0-40); AST/SGOT 19 U/L (<34); CALCIUM LEVEL 9.1 MG/DL (8.3-10.6); CARBON DIOXIDE LEVEL 27 MMOL/L (20-31); CHLORIDE LEVEL 107 MMOL/L (98-107); CREATININE FOR GFR 0.77 MG/DL (0.55-1.30); GLOMERULAR FILTRATION RATE 78.4 (>39); POTASSIUM SERUM 3.8 MMOL/L (3.5-5.1); SODIUM LEVEL 138 MMOL/L (136-145)
[2025-07-18] MEDS: ASPIRIN 81 MG ENTERIC TABLET PO SCH (08:09)
[2025-07-18] MEDS: POTASSIUM CHLORIDE 10MEQ SR TABLET PO SCH (08:09)
[2025-07-18] MEDS: MULTIVITAMINS/MINERALS THERAP 1 TAB PO SCH (08:11)
[2025-07-18] MEDS: LOSARTAN 50 MG TABLET PO SCH (08:11)
[2025-07-18] MEDS: MIRALAX *UNIT DOSE* 17 GM PACKET PO SCH (08:12)
[2025-07-18] MEDS: TORSEMIDE 20 MG TAB PO SCH (08:12)
[2025-07-18 12:00] VITALS: BP 102/52; TEMP 97.3; O2SAT 95
[2025-07-18 20:34] VITALS: BP 103/53; TEMP 96.8; O2SAT 97
[2025-07-19 04:00] VITALS: BP 117/57; TEMP 96.2; O2SAT 95
[2025-07-19 07:29] LABS: LDH LACTATE DEHYDROGENASE 463 U/L (120-246)
[2025-07-19 07:30] LABS: ALT/SGPT < 9 U/L (7.0-40); AST/SGOT 15 U/L (<34); CALCIUM LEVEL 9.2 MG/DL (8.3-10.6); CARBON DIOXIDE LEVEL 26 MMOL/L (20-31); CHLORIDE LEVEL 105 MMOL/L (98-107); CREATININE FOR GFR 0.97 MG/DL (0.55-1.30); GLOMERULAR FILTRATION RATE 59.4 (>39); POTASSIUM SERUM 3.6 MMOL/L (3.5-5.1); SODIUM LEVEL 138 MMOL/L (136-145)
[2025-07-19] MEDS: SILVER SULFADIAZINE 1% CR 50 GM JAR TOP SCH (09:00)
[2025-07-19 12:00] VITALS: BP 99/53; TEMP 96.9; O2SAT 96
[2025-07-19] MEDS ORDERED: SILVER SULFADIAZINE 1% CR 50 GM JAR TOP ONE (16:10)
[2025-07-19 20:00] VITALS: BP 117/57; TEMP 97.6; O2SAT 98
[2025-07-20 04:00] VITALS: BP 146/65; TEMP 97; O2SAT 93
[2025-07-20 06:25] LABS: LDH LACTATE DEHYDROGENASE 416 U/L (120-246)
[2025-07-20 06:26] LABS: ALT/SGPT < 9 U/L (7.0-40); AST/SGOT 14 U/L (<34); CALCIUM LEVEL 8.9 MG/DL (8.3-10.6); CARBON DIOXIDE LEVEL 26 MMOL/L (20-31); CHLORIDE LEVEL 108 MMOL/L (98-107); CREATININE FOR GFR 0.94 MG/DL (0.55-1.30); GLOMERULAR FILTRATION RATE 61.7 (>39); POTASSIUM SERUM 3.5 MMOL/L (3.5-5.1); SODIUM LEVEL 139 MMOL/L (136-145)
[2025-07-20 12:00] VITALS: BP 106/54; TEMP 97.6; O2SAT 96
[2025-07-20] MEDS: POTASSIUM CHLORIDE 10MEQ SR TABLET PO ONE (15:18)
[2025-07-20] MEDS: TORSEMIDE 20 MG TAB PO ONE (15:19)
[2025-07-20] MEDS: POTASSIUM CHLORIDE 10MEQ SR TABLET PO SCH (16:49)
[2025-07-20 20:00] VITALS: BP 98/50; TEMP 96.9; O2SAT 95
[2025-07-21 04:00] VITALS: BP 105/52; TEMP 96.8; O2SAT 96
[2025-07-21] MEDS: TORSEMIDE 20 MG TAB PO SCH (06:19)
[2025-07-21 08:37] LABS: ALT/SGPT < 9 U/L (7.0-40); AST/SGOT 13 U/L (<34); CALCIUM LEVEL 8.9 MG/DL (8.3-10.6); CARBON DIOXIDE LEVEL 26 MMOL/L (20-31); CHLORIDE LEVEL 108 MMOL/L (98-107); CREATININE FOR GFR 0.92 MG/DL (0.55-1.30); GLOMERULAR FILTRATION RATE 63.3 (>39); POTASSIUM SERUM 3.7 MMOL/L (3.5-5.1); SODIUM LEVEL 139 MMOL/L (136-145)
[2025-07-21] MEDS: APIXABAN 5 MG TAB PO SCH (09:31)
[2025-07-21 11:54] VITALS: BP 109/53; TEMP 97.1; O2SAT 96
[2025-07-21 20:00] VITALS: BP 109/55; TEMP 97.2; O2SAT 94
[2025-07-22 04:00] VITALS: BP 132/64; TEMP 97; O2SAT 98
[2025-07-22 09:31] LABS: ALT/SGPT < 9 U/L (7.0-40); AST/SGOT 11 U/L (<34); CALCIUM LEVEL 9.0 MG/DL (8.3-10.6); CARBON DIOXIDE LEVEL 27 MMOL/L (20-31); CHLORIDE LEVEL 109 MMOL/L (98-107); CREATININE FOR GFR 1.03 MG/DL (0.55-1.30); GLOMERULAR FILTRATION RATE 55.3 (>39); POTASSIUM SERUM 4.0 MMOL/L (3.5-5.1); SODIUM LEVEL 140 MMOL/L (136-145)
[2025-07-22 12:00] VITALS: BP 128/62; TEMP 97.5; O2SAT 97
[2025-07-22 20:00] VITALS: BP 134/66; TEMP 97.5; O2SAT 94
[2025-07-23 04:06] VITALS: BP 150/80; TEMP 97.9; O2SAT 98
[2025-07-23 06:40] LABS: LDH LACTATE DEHYDROGENASE 361 U/L (120-246)
[2025-07-23 08:05] LABS: ALT/SGPT < 9 U/L (7.0-40); AST/SGOT 12 U/L (<34); CALCIUM LEVEL 9.0 MG/DL (8.3-10.6); CARBON DIOXIDE LEVEL 28 MMOL/L (20-31); CHLORIDE LEVEL 109 MMOL/L (98-107); CREATININE FOR GFR 1.18 MG/DL (0.55-1.30); GLOMERULAR FILTRATION RATE 47.0 (>39); POTASSIUM SERUM 3.2 MMOL/L (3.5-5.1); SODIUM LEVEL 140 MMOL/L (136-145)
[2025-07-23] MEDS: POTASSIUM CHLORIDE 10MEQ SR TABLET PO SCH (08:35)
[2025-07-23] MEDS: TORSEMIDE 20 MG TAB PO SCH (08:37)
[2025-07-23 12:15] VITALS: BP 125/58; TEMP 97.1; O2SAT 97
[2025-07-23] MEDS ORDERED: PRED50TA57 PO (16:22)
[2025-07-23] MEDS ORDERED: POTA-136 PO (16:22)
[2025-07-23] MEDS: POTASSIUM CHLORIDE 10MEQ SR TABLET PO ONE (17:36)
[2025-07-23 20:00] VITALS: BP 96/55; TEMP 97; O2SAT 97
[2025-07-24 04:00] VITALS: BP 124/57; TEMP 96.9; O2SAT 98
[2025-07-24 07:52] VITALS: BP 119/58
[2025-07-24 08:10] LABS: ALT/SGPT < 9 U/L (7.0-40); AST/SGOT 21 U/L (<34); CALCIUM LEVEL 9.1 MG/DL (8.3-10.6); CARBON DIOXIDE LEVEL 26 MMOL/L (20-31); CHLORIDE LEVEL 108 MMOL/L (98-107); CREATININE FOR GFR 1.07 MG/DL (0.55-1.30); GLOMERULAR FILTRATION RATE 52.8 (>39); POTASSIUM SERUM 3.8 MMOL/L (3.5-5.1); SODIUM LEVEL 137 MMOL/L (136-145)
[2025-07-24 12:00] VITALS: BP 111/54; TEMP 97.1; O2SAT 94
[2025-07-24] MEDS: BISACODYL 5 MG TAB PO PRN (12:30)
[2025-07-24] MEDS ORDERED: POTASSIUM CHLORIDE 10MEQ SR TABLET PO SCH (18:30)
[2025-08-01] MEDS ORDERED: PRED10TA2 PO (13:46)
[2025-08-01] MEDS ORDERED: PRED5TA PO (13:46)
[2025-08-01] MEDS ORDERED: PRED25TA PO (13:46)
[2025-08-01] MEDS ORDERED: PRED20TA PO (13:46)
== END 2025-07-24 15:52 | disposition home health service (06) | DRG 808 ==
LOC: M PM&R 17:30
PROVIDERS: ADMIT Physical Medicine & Rehabilitation; ATTEND Physical Medicine & Rehabilitation
DX: D59.4 Other nonautoimmune hemolytic anemias (principal); I26.94 Multiple subsegmental thrombotic pulmonary emboli without acute cor pulmonale; I50.32 Chronic diastolic (congestive) heart failure; G20.A1 Parkinson's disease without dyskinesia, without mention of fluctuations; E11.9 Type 2 diabetes mellitus without complications; I11.0 Hypertensive heart disease with heart failure; E78.5 Hyperlipidemia, unspecified; E03.9 Hypothyroidism, unspecified; N31.9 Neuromuscular dysfunction of bladder, unspecified; N39.41 Urge incontinence; R53.1 Weakness; K21.9 Gastro-esophageal reflux disease without esophagitis; E87.6 Hypokalemia; K59.00 Constipation, unspecified; Z66 Do not resuscitate; M10.9 Gout, unspecified; I27.20 Pulmonary hypertension, unspecified; T36.1X5A Adverse effect of cephalosporins and other beta-lactam antibiotics, initial encounter; Z74.1 Need for assistance with personal care; Z86.73 Personal history of transient ischemic attack (TIA), and cerebral infarction without residual deficits; Z74.09 Other reduced mobility; Z79.01 Long term (current) use of anticoagulants; Z79.82 Long term (current) use of aspirin; Z79.890 Hormone replacement therapy; Z79.899 Other long term (current) drug therapy; Z88.1 Allergy status to other antibiotic agents; Z88.8 Allergy status to other drugs, medicaments and biological substances; Z87.440 Personal history of urinary (tract) infections

== ENCOUNTER → 2025-07-31 | Outpatient (REF) | payer MEDICARE, OTHER ==
[~2025-07-31] MED LIST changes: +PRED10TA2 PO; +PRED20TA PO; +PRED25TA PO; +PRED50TA57 PO; +PRED5TA PO
[2025-07-31 14:23] LABS: LDH LACTATE DEHYDROGENASE 337 U/L (120-246)
[2025-07-31 14:24] LABS: IRON (FE) 73 UG/DL (50-170); PERCENT SATURATION 29.6 % (13.2-45.0)
[2025-07-31 14:36] LABS: VITAMIN B12 LEVEL > 2000 PG/ML (211-911)
== END ==
LOC: M LAB REF 13:30
DX: D64.9 Anemia, unspecified (principal)

== ENCOUNTER 2025-08-07 12:41 | Emergency (ER) | payer MEDICARE, OTHER ==
[~2025-08-07] VITALS: Ht 172.7 cm; Wt 102.3 kg
[2025-08-07 15:36] VITALS: BP 165/76; TEMP 97.8; O2SAT 95
== END 2025-08-07 15:38 | disposition home or self-care (01) ==
LOC: M ED 12:41
DX: J10.1 Influenza due to other identified influenza virus with other respiratory manifestations (principal); I50.22 Chronic systolic (congestive) heart failure; E11.9 Type 2 diabetes mellitus without complications; G20.A1 Parkinson's disease without dyskinesia, without mention of fluctuations; Z86.711 Personal history of pulmonary embolism; Z88.1 Allergy status to other antibiotic agents; Z88.8 Allergy status to other drugs, medicaments and biological substances; Z79.1 Long term (current) use of non-steroidal anti-inflammatories (NSAID); Z79.01 Long term (current) use of anticoagulants; Z79.52 Long term (current) use of systemic steroids; Z79.899 Other long term (current) drug therapy; Z79.810 Long term (current) use of selective estrogen receptor modulators (SERMs)